=== PATIENT | male | born 1965 | race Caucasian/White ===

== ENCOUNTER 2018-09-08 21:22 | Emergency (ER) | payer SELFPAY ==
[~2018-09-08] VITALS: Ht 175.3 cm; Wt 81.6 kg
[2018-09-08 21:47] VITALS: Ht 175.3 cm; Wt 81.6 kg
[2018-09-08 23:06] LABS: BASOPHIL % 0.4 % (0-2); PLATELET COUNT 315 x10^3mcL (130-400)
[2018-09-08 23:08] LABS: RED CELL DISTRIBUTION WIDTH 17.3 % (11.5-14.5)
[2018-09-08 23:17] LABS: CARBON DIOXIDE 34.8 mmol/L (21-32); CREATININE SERUM 1.8 mg/dL (0.7-1.3)
[2018-09-08 23:22] LABS: BILIRUBIN TOTAL 0.1 mg/dL (0.20-1.00); TOTAL PROTEIN, SERUM 4.8 g/dL (6.4-8.2)
[2018-09-09 02:39] VITALS: BP 160/103
== END 2018-09-09 02:39 | disposition short-term general hospital (02) ==
LOC: ED 21:22
PROVIDERS: Emergency Medicine
DX: S06.5X0A Traumatic subdural hemorrhage without loss of consciousness, initial encounter (principal); I11.0 Hypertensive heart disease with heart failure; I50.9 Heart failure, unspecified; E11.9 Type 2 diabetes mellitus without complications; W01.0XXA Fall on same level from slipping, tripping and stumbling without subsequent striking against object, initial encounter; Y93.89 Activity, other specified; Y92.89 Other specified places as the place of occurrence of the external cause; Y99.8 Other external cause status
CPT/HCPCS: 83880; J1885; J1940; J2150; J2270; J2405; J2765; J3490; Q0092

== ENCOUNTER 2018-11-25 20:49 | Emergency (ER) | payer SELFPAY ==
[~2018-11-25] VITALS: Ht 167.6 cm; Wt 90.7 kg
[2018-11-25 20:52] VITALS: Ht 167.6 cm; Wt 90.7 kg
[2018-11-25 21:59] LABS: CALCIUM 7.6 mg/dL (8.5-10.1); CARBON DIOXIDE 30.6 mmol/L (21-32); CREATININE SERUM 2.3 mg/dL (0.7-1.3); POTASSIUM SERUM 4.4 mmol/L (3.5-5.1)
[2018-11-25 22:03] LABS: BASOPHIL % 0.1 % (0-2); PLATELET COUNT 346 x10^3mcL (130-400)
[2018-11-25 22:04] LABS: BILIRUBIN TOTAL 0.1 mg/dL (0.20-1.00); RED CELL DISTRIBUTION WIDTH 16.9 % (11.5-14.5)
[2018-11-25 22:05] LABS: ALBUMIN 1.3 g/dL (3.4-5.0); TOTAL PROTEIN, SERUM 5.6 g/dL (6.4-8.2)
[2018-11-26 04:47] VITALS: BP 147/93
== END 2018-11-26 04:47 | disposition short-term general hospital (02) ==
LOC: ED 20:49
PROVIDERS: Emergency Medicine
DX: S06.5X0A Traumatic subdural hemorrhage without loss of consciousness, initial encounter (principal); I16.1 Hypertensive emergency; I12.9 Hypertensive chronic kidney disease with stage 1 through stage 4 chronic kidney disease, or unspecified chronic kidney disease; E11.22 Type 2 diabetes mellitus with diabetic chronic kidney disease; N18.9 Chronic kidney disease, unspecified; E78.00 Pure hypercholesterolemia, unspecified; W18.39XA Other fall on same level, initial encounter; Y93.89 Activity, other specified; Y92.89 Other specified places as the place of occurrence of the external cause; Y99.8 Other external cause status
CPT/HCPCS: 83880; J1953; J2405; J3490; Q0163

== ENCOUNTER 2018-12-10 11:26 | Inpatient (IN) | payer MEDICAID ==
[~2018-12-10] VITALS: Ht 170.2 cm; Wt 88.2 kg
--- NOTE | 2018-12-10 11:45 | NUR ---
PLACED IN H1 FOR EVAL.
--- NOTE | 2018-12-10 12:03 | NUR ---
PATIENT AAOX4 PRESENTS TO THE ED WITH ACCIDENTAL OVERDOSE OF 10 HYDROCHLOROTHIAZIDE PILLS. PT THOUGHT HE WAS TAKING A MIX OF HIS REGULAR MEDICATIONS AND ACCIDENTALLY GRABBED THE WRONG BOTTLE. PT NOT C/O ANY SYMPTOMS, NO N/V. PT STS "I FEEL PERFECT" (IN [place]). BREATHING E/U, SKIN WARM, DRY AND INTACT. PT WAS PLACED ON ALL MONITORS FOR FURTHER OBSERVATION. WILL CONTINUE TO MONITOR.
--- NOTE | 2018-12-10 12:05 | NUR ---
EKG IN PROGRESS BY TECH.
[2018-12-10 12:18] LABS: BASOPHIL % 0.4 % (0-2)
[2018-12-10 12:20] LABS: PLATELET COUNT 454 x10^3mcL (130-400); RED CELL DISTRIBUTION WIDTH 17.6 % (11.5-14.5)
[2018-12-10 12:22] LABS: CALCIUM 7.6 mg/dL (8.5-10.1); CARBON DIOXIDE 31.7 mmol/L (21-32); CHLORIDE SERUM 107 mmol/L (98-107); CREATININE SERUM 2.5 mg/dL (0.7-1.3); GFR1 29 mL/min; GLUCOSE SERUM 155 mg/dL (74-106); POTASSIUM SERUM 4.6 mmol/L (3.5-5.1); SODIUM SERUM 142 mmol/L (136-145)
[2018-12-10 12:29] LABS: ALKALINE PHOSPHATASE 110 U/L (46-116); ALT/SGPT 43 U/L (16-63); AST/SGOT 26 U/L (15-37); BILIRUBIN TOTAL 0.1 mg/dL (0.20-1.00)
[2018-12-10 12:31] LABS: ALBUMIN 1.6 g/dL (3.4-5.0); TOTAL PROTEIN, SERUM 5.6 g/dL (6.4-8.2)
--- NOTE | 2018-12-10 12:33 | NUR ---
S/W POISON CONTROLADA, TREAT SYMPTOMS-- CHEMISTRY PANEL.
--- NOTE | 2018-12-10 12:42 | NUR ---
MEDICATED PER MD ORDERS.
--- NOTE | 2018-12-10 12:59 | NUR ---
URINE SENT TO LAB--
[2018-12-10 13:17] LABS: AMPHETAMINE QUAL UR NONE DETECTED (See below)
[2018-12-10 13:19] LABS: UA SPECIFIC GRAVITY 1.015 (1.005-1.035); microscopic required? YES; urine erythrocyte 1+ (NEGATIVE)
--- NOTE | 2018-12-10 13:40 | NUR ---
BP RECHECKED PRIOR TO ADMINISTRATION OF LABETATOL. BP ELEVATED AT 186/111 DR LILLIE HURT.
--- NOTE | 2018-12-10 13:48 | NUR ---
WARM BLANKETS PROVIDED TO THE PATIENT FOR COMFORT.
--- NOTE | 2018-12-10 15:02 | NUR ---
REPORT GIVEN TO FRANTZ
--- NOTE | 2018-12-10 15:15 | NUR ---
PT ADMITTED AT THIS TIME FROM OUR ED FOR OVERDOSE ON HYDROCHLOROTHIAZIDE AND HYPERTENSIVE URGENCY. ADMISSION VS: HR 80, BP 181/95 (146), T 97.7, 02 95% ON RA, RR 18. PT DENIES PAIN, IS ABLE TO FOLLOW COMMANDS AND MAKE NEEDS KNOWN. PERRL 3MM, BRISK. VITAL SIGNS STABLE. LUNG SOUNDS CTA, BREATHING E/U ON RA. NO SOB. PT HAS 20 G LAC IV, SALINE LOCKED, NO MAINTENANCE FLUID RUNNING. WILL CARRY OUT ORDERS FOR THIS SHIFT AND CONTINUE MONITORING PT.
--- NOTE | 2018-12-10 16:15 | NUR ---
PT GIVEN PRN 10 MG IVP HYDRALAZINE FOR BP 181/99 (139). WILL CONTINUE TO MONITOR.
--- NOTE | 2018-12-10 16:16 | NUR ---
PT USED URINAL, 375 ML URINE AT THIS TIME. YELLOW, CLEAR.
--- NOTE | 2018-12-10 16:30 | NUR ---
PUBLIC HEALTH ADMINISTRATOR FROM [facility] CALLED AND ASKED FOR UPDATES ON PATIENT; UPDATES GIVEN, QUESTIONS ADDRESSED. SHE STATED THAT THE PT DOESN'T SEEM TO BE MANIFESTING SIGNS OR SYMPTOMS OF HCTZ OVERDOSE SO THEY WOULD BE CLOSING THE CASE ON THEIR END. SHE SAID IF WE HAVE FURTHER QUESTIONS TO GIVE THEM A CALL.
[2018-12-10 17:20] VITALS: BP 181/95
--- NOTE | 2018-12-10 19:00 | NUR ---
RECEIVED REPORT FROM FRANTZ KRAMER. ASSUMING ALL CARE
[2018-12-10 19:10] VITALS: BP 179/89
--- NOTE | 2018-12-10 19:12 | NUR ---
RECEIVED PT LAYING IN BED. PT IS A/OX4. SPEECH IS CLEAR. ABLE TO MAKE NEEDS KNOWN. DENIES CRAWFORD. GCS=15. BREATHING IS E/U ON 2 LPM VIA NC. LUNGS SOUND CLEAR TO BUL AND DIMIN TO BLL. SYMMETRICAL CHEST EXPANSION NOTED. S1/S2 HEART SOUNDS AUSCULTATED. CHEST WALL EQUAL AND SYMMETRICAL. DENIES ANY CP/DIZZINESS. HR 78.PALPABLE PULSES X4 EXTREMITIES. SKIN IS WARM AND DRY. +1 PITTING EDEMA NOTE TO BLE. CAP REFILL < 3 SECS. LAC IV INTACT/SECURED, SALINE LOCKED. SCD IN PLACE. ABD IS SOFT, ROUND, NONTENDER TO PALPATION. BOWEL SOUNDS ACTIVE X4 QUADRANTS. NO BM NOTED. PT VOIDS FREEY VIA URINAL. NO SCROTAL EDEMA/PENILE DISCHARGE NOTED. SKIN IS INTACT. DARK DISCOLORATION NOTED TO BLE. PT IS ABLE TO REPOSITION SELF INDEPENDENTLY. PT IS CALM AND COOPERATIVE. BED IN LOW POSITION. CALL LIGHT IN REACH. WILL CONT TO MONITOR
--- NOTE | 2018-12-10 20:05 | NUR ---
PT'S O2 SATURATION DECREASED TO 76%. NC INCREASED TO 4 LPM WITH O2 SAT IMPROVING TO 95%. WILL CONT TO MONITOR.
--- NOTE | 2018-12-10 20:35 | NUR ---
PT'S O2 SATURATION DECREASED TO 70%. SIMPLE MASK PLACED AT 6 LPM. O2 SAT IMPROVED TO 96%. WILL CONT TO MONITOR
[2018-12-10 23:10] VITALS: BP 154/82
[2018-12-11] VITALS (8 sets, daily range): BP systolic 152–194; BP diastolic 82–105; Ht 170.2 cm; Wt 88.2 kg
--- NOTE | 2018-12-11 02:28 | NUR ---
NIBP 188/95. HYDRALAZINE ADMINISTERED IVP PER EMAR. WILL CONT TO MONITOR
--- NOTE | 2018-12-11 04:47 | NUR ---
WEBSPHERE CONSULTANT AT BEDSIDE FOR AM LAB DRAW
[2018-12-11 05:10] LABS: BASOPHIL % 0.7 % (0-2); PLATELET COUNT 391 x10^3mcL (130-400)
[2018-12-11 05:15] LABS: RED CELL DISTRIBUTION WIDTH 17.7 % (11.5-14.5)
[2018-12-11 05:23] LABS: CALCIUM 7.4 mg/dL (8.5-10.1); CARBON DIOXIDE 32.6 mmol/L (21-32); CREATININE SERUM 2.4 mg/dL (0.7-1.3); POTASSIUM SERUM 4.8 mmol/L (3.5-5.1)
--- NOTE | 2018-12-11 07:00 | NUR ---
RECIEVED REPORT FROM JEFFERY KRAMER. UPDATES GIVEN, ALL QUESTIONS ANSWERED AND ADDRESSED.
--- NOTE | 2018-12-11 10:02 | NUR ---
BP 177/92. HYDRALAZINE 10 MG IVP GIVEN PRN SBP >160.
--- NOTE | 2018-12-11 14:13 | NUR ---
Discount pharmacy card and list to low cost medical clinics given to patient by Darío.
--- NOTE | 2018-12-11 14:20 | NUR ---
REPORT GIVEN TO NAIF KRAMER. PT WILL BE GOING TO [facility]A VIA WHEELCHAIR. ON TELE MONITOR # 21. PT'S BELONGINGS GOING WITH PT.
--- NOTE | 2018-12-11 15:00 | NUR ---
RECEIVED PATEINT FROM ICU VIA WHEELCHAIR. PATIENT A/A/OX4; TAIWANESE SPEAKING. V/S = 99.3-83-18-152/80, MAP = 104; O2 SAT 92% ON RA. NO SOB. O2 SAT IMPORVED ON O2 2L VIA N/C. TELE#21; SR; HR =84. DENIED CHEST PAIN. IVHL'D TO LAC WITH INFILTRATION. LUE EDEMA 3+. CALL LIGHT IN REACH.
--- NOTE | 2018-12-11 15:15 | NUR ---
REMOVED IVHL FROM LAC. NEW IV INSERTION WITH 22G NEEDLE TO RFA. GOOD BLOOD RETURN. ARISTIDES.
--- NOTE | 2018-12-11 17:55 | NUR ---
TELEPHONE ORDERS FROM DR ROWLAND RECEIVED. PATIENT VOID 400CC OF YELLOWISH URINE. URINE SPECIMEN COLLECTED AND SENT TO LAB.
--- NOTE | 2018-12-11 19:10 | NUR ---
REPORT RECEIVED FROM DAY SHIFT RN. PATIENT WAS SEEN RESTING COMFORTABLY IN BED. NO DISTRESS NOTED. BREATHING EVEN AND UNLABORED ON 2L NC. NO SOB OR RESP DISTRESS NOTED. DENIES CHEST PAIN/PRESSURE. NO C/O PAIN. IV TO THE RFA. SALINE LOCK. PATENT AND INTACT. NO REDNESS OR SWELLING NOTED. HIGH BP. DAY SHIFT RN WILL GIVE PRN HYDRALAZINE. CRUTCHES AT BEDSIDE. COMFORT AND SAFETY MEASURES IN PLACE. BED IS LOCKED AND IN THE LOWEST. POSITION. SIDE RAILS UP X2. CALL LIGHT IS WITHIN REACH. WILL CONTINUE TO [facility].
--- NOTE | 2018-12-11 19:25 | NUR ---
U/S KIDNEYS DONE. B/P = 194/105; P = 78; DENIED PAIN. HYDRALAZINE 10MG IVP GIVEN. ENDORSED CARE TO NOC NURSE.
--- NOTE | 2018-12-11 23:36 | NUR ---
PATIENT REFUSED SCHEDULED APRESOLINE. GAVE PATIENT MED AND PATIENT SPAT IT OUT AND SAID "NO, I DON'T WANT IT. GET OUT OF HERE". EDUCATED PATIENT ON THE IMPORTANCE OF TAKING BP MED AND THE RISK IF REFUSING. PATIENT STILL REFUSED AND KEPT SAYING "GET OUT OF HERE". DR DUBOSE AWARE. SAFETY MEASURES IN PLACE. CALL LIGHT IS WITHIN REACH. WILL CONTINUE TO MONITOR.
--- NOTE | 2018-12-12 02:15 | NUR ---
RESTING IN BED WITH EYES CLOSED. NO DISTRESS NOTED. NO S/S OF PAIN NOTED. BREATHING EVEN AND UNLABORED ON ROOM AIR. NO SOB OR RESP DISTRESS NOTED. SAFETY MEASURES IN PLACE. CALL LIGHT IS WITHIN REACH. WILL CONTINUE TO MONITOR.
--- NOTE | 2018-12-12 05:30 | NUR ---
REFUSED PO APRESOLINE. HIGH BP 190/86(117), HR 80. ADMINISTERED PRN HYDALAZINE IVP. CASINO FLOORPERSON AWARE/NOTIFIED. NO DISTRESS NOTED. SAFETY MEASURES IN PLACE. CALL LIGHT IS WITHIN REACH. WILL CONTINUE TO MONITOR.
[2018-12-12 05:44] VITALS: BP 180/86
--- NOTE | 2018-12-12 06:02 | NUR ---
RESTED IN LONG INTERVALS THROUHGOUT THE NIGHT. NO ACUTE CHANGES NOTED. AGITATED AND REFUSED APRESOLINE PO. WANTED TO BE LEFT ALONE. BREATHING EVEN AND UNLABORED ON 2L NC. NO SOB NOTED. NO DISTRESS NOTED. IV TO RFA INFUSING ALBUMIN WELL. PATENT AND INTACT. NO REDNESS OR SWELLING NOTED. DENIES CHEST PAIN/PRESSURE. NO C/O PAIN THROUGHOUT THE NIGHT. ALL NEEDS AND CONCERNS ADDRESSED. SAFETY MEASURES IN PLACE. CALL LIGHT IS WITHIN REACH. WILL ENDORSE CARE TO DAY SHIFT RN.
--- NOTE | 2018-12-12 06:46 | NUR ---
BP STILL HIGH AFTER PRN HYDRALAZINE IVP 181/89 (123), HR 82. PATIENT AGREED TO TAKE SCHEDULED APRESOLINE HE REFUSED EARLIER. ADMINISTERED PO APRESOLINE PRESCRIBED. NO DISTRESS NOTED. SAFETY MEASURES IN PLACE. WILL ENDORSE CARE TO DAY SHIFT RN
--- NOTE | 2018-12-12 08:00 | NUR ---
SHIFT ASSESSMENT DONE. PATIENT A/A/OX4; CLEAR CROATIAN SPEAKING. DENIED DIZZINESS AND HEADACHE. B/P = 187/94; TELE#21; SR; HR = 87. DENIED CHEST PAIN. NO SOB. BREATHING SOUND DIMINISHED SARA BASES. SOME FINE CRACKLES TO RT BASE. O2 SAT 95% ON 2L VIA N/C. TOLERATED CARDIAC/CCHO DIET BREAKFAST. NO N/V. IVHL'D TO RFA PATENT WITH NS FLUSH. TRACE GENERAL EDEMA. EDEMA TO LUE SUBSIDING. SCD TO BLE. SKIN INTACT, SKIN DARK BRWN DISCOLORATION TO BLE. PATIENT WAS USING CRUTCHES AT HOME, CRUTCHES AT BED SIDE NOW. CALL LIGHT IN REACH.
[2018-12-12 09:06] VITALS: BP 187/94
[2018-12-12 12:33] VITALS: BP 195/98
--- NOTE | 2018-12-12 12:40 | NUR ---
C/O CONSTIPATION, NO BM X 3 DAYS. DULCOLAX 5MG PO GIVEN. PLUNE JUICE 240CC ORDERED.
[2018-12-12 12:47] LABS: CALCIUM 8.2 mg/dL (8.5-10.1); CARBON DIOXIDE 29.8 mmol/L (21-32); CREATININE SERUM 2.3 mg/dL (0.7-1.3)
--- NOTE | 2018-12-12 12:49 | NUR ---
B/P = 195/98; P =87; MONA BLANTON CALLED AND MESSAGE LEFT. HYDRALAZINE 10MG IVP GIVEN. PATIENT DENIED ANY DISCOMFORTABLE. HAVING LUNCH THIS TIME.
--- NOTE | 2018-12-12 14:15 | NUR ---
DR. ROWLAND SAW PATIENT. NEW ORDER OF LASIX 20MG IVP GIVEN WITH ALBUMIN #3 DOSE. CONTINUE MONITOR.
[2018-12-12 16:41] VITALS: BP 165/70
[2018-12-12 17:29] LABS: CREATININE UR 30.6 mg/dL
--- NOTE | 2018-12-12 18:44 | NUR ---
B/P = 165/70 AFTER LASIX 20MG IVP GIVEN. PATIENT HAD VOID 1050 CC OF URINE. URINE SPECIMEN COLLECTED AND SENT TO LAB. PATIENT NO RESP DISTRESS NOW. TOLERATED DINNER. NO BM THIS SHIFT. DULCOLAX AND PLUNE JUICE GIVEN. ENDORSED CARE TO [facility] NURSE.
[2018-12-12] MEDS ORDERED: METOLAZONE5 M1 PO (19:18)
[2018-12-12] MEDS ORDERED: ZESTRIL40 MG PO (19:19)
[2018-12-12] MEDS ORDERED: NOR10 PO (19:20)
[2018-12-12] MEDS ORDERED: HYDRALAZINE HCL25 MG PO (19:21)
[2018-12-12] MEDS ORDERED: LASIX40 MG PO (19:22)
[2018-12-12] MEDS ORDERED: Z5 PO (19:24)
--- NOTE | 2018-12-12 19:25 | NUR ---
RECEIVED PT IN BED AWAKE, ALERT,ORIENTED X4. LUNG SOUNDS W/ CRACKLES ON THE RLL. NO SOB NOTED. ON O2 AT 2L VIA N/C. HE HAS NO C/O PAIN AT THIS TIME. W/ +1 SWELLING TO LUE. SWELLING NOTED ON BODY AND BLE. W/ HL TO RTFA. CALL LIGHT W/IN REACH.
[2018-12-12 20:33] VITALS: BP 169/88
--- NOTE | 2018-12-12 23:10 | NUR ---
RECEIVED REPORT FROM MALENA KRAMER. WILL RESUME CARE.
--- NOTE | 2018-12-12 23:15 | NUR ---
RECEIVED PT AAOX4. SPEECH CLEAR. PT ABLE TO FOLLOW COMMANDS AND MAKE NEEDS KNOWN. BREATHING E/U. NO SOB OR RESPIRATORY DISTRESS NOTED. LUNG SOUNDS DIMINISHED TO BASES. ON RA. S1S2 AUSCULTATED WITH NO MURMURS NOTED. PT STATES NO CHEST PAIN AT THIS TIME. PULSES PALPABLE. TRACE EDEMA NOTED TO BLE AND LUE. ABDOMEN SOFT, NONTENDER. BS ACTIVE X 4. NO N/V. SKIN INTACT. RFA 22G IV SITE WNL, DRESSING CDI. BED IN LOW POSITION. CALL LIGHT WITHIN REACH. WILL CONTINUE TO MONITOR.
[2018-12-13] VITALS (7 sets, daily range): BP systolic 134–195; BP diastolic 70–100
--- NOTE | 2018-12-13 02:03 | NUR ---
PT SLEEPING IN BED AT THIS TIME. NAD NOTED. BREATHING E/U.
--- NOTE | 2018-12-13 07:20 | NUR ---
RECEIVED PT FROM MANAGER OF CHANGE. PT AWAKE, ALERT. A/OX4. PT ON TELE 21, DENIES CHEST PAIN AT THIS TIME. PT ON 2LNC WITH NO RESP DISTRESS AT THIS TIME. PT WITH DIMINISHED LUNG SOUNDS. IV ACCESS RFA C/D/I SALINE LOCKED. PT REPORTS LAST BM WAS 12/09. PT HAS DUCOLAX PRN. PT VOIDS FREELY INTO URINAL. URINE CLEAR AND YELLOW. PT HAS GENERALIZED WEAKNESS, AMBULATORY WITH AN UNSTEADY GAIT. PT USES CRUTCHES AT HOME. PERIPHERAL PULSES PALPABLE, EDEMA NOTED TO BLE AND LEFT ARM. SAFETY MEASURES IN PLACE, BED LOW AND LOCKED. CALL LIGHT WITHIN REACH.
--- NOTE | 2018-12-13 08:28 | NUR ---
PT BP 195/100 (131), DUE DAILY BP MEDS ADMINISTERED ORDERED. WILL MONITOR.
[2018-12-13 09:45] LABS: CALCIUM 7.9 mg/dL (8.5-10.1); CREATININE SERUM 2.4 mg/dL (0.7-1.3); POTASSIUM SERUM 4.9 mmol/L (3.5-5.1)
--- NOTE | 2018-12-13 09:47 | NUR ---
BP RE CHECK 185/94 (109) HR 72.
--- NOTE | 2018-12-13 11:06 | NUR ---
BP RECHECK 174/100, HR 74.
--- NOTE | 2018-12-13 11:12 | NUR ---
HYDRALAZINE 10MG IVP ADMINISTERED ORDERED PRN. WILL MONITOR.
--- NOTE | 2018-12-13 11:33 | NUR ---
Initial Nutrition Assessment: 220T/A YUAN BAE IA HR Dx: Hypertensive urgency PMHx: HTN, HLD, DM2 PSHx: none per patient Labs: BG 117H, BUN 56H, CREAT 2.3H, ALB 1.6L, HGB 7.5L Meds: D 50%, Dulcolax, Humulin, Lasix, Pepcid, Rocephin, zofran Diet: Cardiac PO intake since admission: (12/13) breakfast 100%, (12/12) 100% all meals Ht: 170.18 cm (67") Wt: 93.8 kg (206#) BMI: 32.4 kg/m2 Bed scale: 206# IBW: 148# (67 kg) %IBW: 139 UBW: 200# Age: 53/M Food Allergies: NKFA Skin: intact Italo: 20 Edema: +3LUE, trace RUE, BLE GI: Last BM: 12/09 Trigger: admitted w/ risk diagnosis Pt is a 53-year old male who was seen and examined in the ER. According to patient he believes he accidentally overdosed on his routine medications. RD Note (12/13): Patient was alert and oriented and said that he ate 100% breakfast this morning and does not have any N/V. Patient was complaining of constipation and that his last BM was on 12/09. Per WILLIAMS Maldonado, pt was given Dulcolax and prune juice per the report that she received. Problem with: N/V/D/C: constipation Problems with: Chewing: Swallowing: none Current appetite: good Recent wt change: none (some increase d/t edema) %wt change: n/a Vitamin/Supplement use: none Special diet at home: Regular Physical activity: sedentary Nutrition education given: consumption of high fiber foods. Patient did not have any diet/nutrition related questions. Food-drug interactions: Lasix- increased excretion of K, Mg Education given: no Estimated Nutritional Needs Based on adjusted body weight (74 kg) Energy: 7989-5119 kcal/day (25-30 kcal/kg for) Protein: 74-89 g/day (1.0-1.2 g/kg to preserve LBM) Fluid: 9120-7265 mL/day (1 mL/kcal) Nutrition Diagnosis: 1. Altered GI function related to constipation as evidenced by last BM: 12/09/18 Intervention 1. Recommend continuing regular diet. 2. Encouraged consumption of high fiber foods. Monitor/Evaluate Goal: PO intake at least 75% of estimated needs Monitor: PO intake, Labs, GI function F/U in 7 days as low risk 12/20
--- NOTE | 2018-12-13 11:33 | NUR ---
1. Recommend continuing regular diet. 2. Encouraged consumption of high fiber foods.
--- NOTE | 2018-12-13 11:47 | NUR ---
BP RECHECK 188/91 (123) HR 77. BREAD JOCKEY AT BEDSIDE AWARE OF PATIENTS BLOOD PRESSURE, NEW ORDERS GIVEN.
--- NOTE | 2018-12-13 11:53 | NUR ---
NIFEDIPINE ADMINISTERED AT THIS TIME ORDERED. PT WALKED WITH PHYSICAL THERAPY 100 FEET WITH WALKER. WILL MONITOR BP.
--- NOTE | 2018-12-13 14:52 | NUR ---
PT BP 175/90 (115), HR 73 AFTER ADMINISTRATION OF SCHEDULED HYDRALAZINE PO 75MG. WILL CONTINUE TO MONITOR. PT ASLEEP WITH NO ACUTE DISTRESS OR DISCOMFORT NOTED.
--- NOTE | 2018-12-13 17:08 | NUR ---
PT BP 168/82 HYDRALAZINE 20MG ADMINISTERED IVP PRN ORDERED. PT REQUESTING PRUNE JUICE TO HELP HAVE A BM. PT DOES NOT WANT DUCOLAX AT THIS TIME. WILL MONITOR.
--- NOTE | 2018-12-13 18:10 | NUR ---
PT BLOOD PRESSURE 134/70 (84) AFTER ADMINISTRATION OF HYDRALAZINE 20MG IVP PRN. PT STABLE AT THIS TIME. ALL NEED MET THROUGHOUT SHIFT. WILL CONTINUE TO MONITOR AND ENDORSE CARE TO RADIOGRAPHER CARDIAC CATHETERIZATION. SAFETY MEASURES MAINTAINED.
--- NOTE | 2018-12-13 19:10 | NUR ---
PT SLEEPING, BUT EASILY AROUSABLE. PT AAOX4. WELSH SPEAKING, BUT UNDERSTANDS SAMMARINESE AT TIMES. PT DENIES ANY HEADACHE OR DIZZINESS AT THIS TIME. PT IS ON TELE #21 WITH NSR. NO S/S OF CHEST PAIN OR DISCOMFORT AT THIS TIME. PT HAS EDEMA IN LUE WELL TRACE EDEMA BLE. PT HAS FINE CRACKLES UPON AUSCULTATION IN RIGHT LOBES WELL DIMINISHED BREATH SOUNDS. PT IS ON 2L O2 NASAL CANNULA. PT VOIDS FREELY USING URINAL. PT HAS GENERALIZED WEAKNESS. SKIN IS INTACT AND WNL. CALL LIGHT WITHIN REACH. BED IN LOWEST POSITION. WILL CONTINUE TO MONITOR.
--- NOTE | 2018-12-13 23:00 | NUR ---
PT C/O SOB. ELEVATED HOB TOLERATED TO HELP FACILITATE BETTER BREATHING. PT ALSO ON NASAL CANNULA 2L O2. WILL CONTINUE TO MONITOR.
[2018-12-14 05:49] VITALS: BP 147/73
--- NOTE | 2018-12-14 06:23 | NUR ---
PT COMPLIED WITH NURSING CARE THROUGHOUT SHIFT WITH NO ACUTE EVENTS OVERNIGHT. COMFORT AND SAFETY MEASURES MAINTAINED. ALL NEEDS AND CONCERNS ADDRESSED. PT SLEPT MOST OF THE NIGHT. IV SITE ON RFA AND WNL. IV IS SALINE LOCKED. WILL ENDORSE TO DAY SHIFT NURSE. DENIES ANY PAIN OR DISCOMFORT AT THIS TIME. WILL CONTINUE TO MONITOR.
[2018-12-14 06:51] LABS: BASOPHIL % 0.4 % (0-2); PLATELET COUNT 365 x10^3mcL (130-400)
[2018-12-14 06:57] LABS: RED CELL DISTRIBUTION WIDTH 16.6 % (11.5-14.5)
--- NOTE | 2018-12-14 07:20 | NUR ---
ENDORSED CARE TO WILLIAMS MACIEL. ALL QUESTIONS AND CONCERNS ADDRESSED.
[2018-12-14 07:38] LABS: CALCIUM 7.6 mg/dL (8.5-10.1); CARBON DIOXIDE 30.9 mmol/L (21-32); CREATININE SERUM 2.6 mg/dL (0.7-1.3); POTASSIUM SERUM 4.7 mmol/L (3.5-5.1)
--- NOTE | 2018-12-14 07:52 | NUR ---
A+OX4, NO RESPRIATORY DISTRESS NOTED, TELE 21, PULSES MODERATE AND EQUAL SARA, TRACE EDEMA BLE, R FINE CRACKLES, DIMINISHED LUNG SOUNDS SARA, 2L NC, BOWEL SOUNDS ACTIVE, VOIDING FREELY, GENERALIZED WEAKNESS, USES CRUTCHES AT BEDSIDE, UNSTEADY GAIT, SKIN INTACT, IV IN RFA SALINE LOCKED, SITE WNL.
[2018-12-14 09:26] VITALS: BP 158/82
--- NOTE | 2018-12-14 09:57 | NUR ---
PT RESTING IN BED, NO RESPIRATORY DISTRESS NOTED, DENIES PAIN, CALL LIGHT WIHTIN REACH.
--- NOTE | 2018-12-14 12:12 | NUR ---
PT RESTING IN BED, NO RESPRIATORY DISTRESS NOTED, DENIES PAIN, CALL LIGHT WITHIN REACH.
[2018-12-14 14:08] VITALS: BP 180/94
--- NOTE | 2018-12-14 14:21 | NUR ---
PT GIVEN HYDRALAZINE IVP FOR BP 180/94 MAP 133. WILL RECHECK BP. NO RESPIRATORY DISTRESS NOTED, FAMILY AT BEDSIDE, CALL LIGHT WITHIN REACH.
[2018-12-14 16:13] VITALS: BP 165/83
--- NOTE | 2018-12-14 16:35 | NUR ---
PT RESTING IN BED, NO RESPIRATORY DISTRESS NOTED, DENIES PAIN, CALL LIGHT WITHIN REACH.
--- NOTE | 2018-12-14 18:40 | NUR ---
PT RESTING IN BED, NO RESPIRATORY DISTRESS NOTED, DENIES PAIN, CALL LIGHT WITHIN REACH.
--- NOTE | 2018-12-14 19:38 | NUR ---
ENDORSED CARE TO KAHLIL KRAMER.
--- NOTE | 2018-12-14 19:45 | NUR ---
RECEVIED RPT FROM DAY SHIFT NURSE, RAHEEM KRAMER. PT IS A/O X4. [place] SPEAKING. DENIES CRAWFORD. ON TELE #21 READING NSR WITH ELEVATED T WAVES. VS ARE FOLLOWED: BP 156/93, HR 76, RR 18, TEMP 98.5, SAO2 98. DENIES CP. PULSES ARE PALPABLE ON ALL 4 EXTREMITIES. LUE 1+ EDEMA, BLE TRACE EDEMA. LUNG SOUNDS ARE DIMINISHED SARA ON 2L NC. DENIES SOB. ABD IS ROUND AND SLIGHTLY DISTENDED. BS ACTIVE IN ALL 4Q. HAS NOT HAD BM SINCE 12/09. URINAL AT BEDSIDE DRAINING CLEAR YELLOW URINE. PT ON STRICT I&OS. PT HAS GENERALIZED WEAKNESS, UNSTEADY GAIT. SKIN INTACT. DENIES PAIN AT THIS TIME. RFA SALINE LOCK. DRY, INTACT, AND PATENT. WILL CONTINUE TO MONITOR. BED IN LOWEST POSITION. CALL LIGHT WITHIN REACH.
[2018-12-14 20:15] VITALS: BP 156/93
--- NOTE | 2018-12-14 21:38 | NUR ---
ROUTINE MEDICATIONS WERE GIVEN AND TOLERATED WELL. DENIES ANY PAIN AT THIS TIME. BREATHING IS EVEN AND UNLABORED ON 2L NC. NO SIGNS OF SOB. BED IN LOWEST POSITION. URINAL WITH REACH. CALL LIGHT WITHIN REACH. WILL CONTINUE TO MONITOR.
--- NOTE | 2018-12-14 23:00 | NUR ---
PT IS RESTING WITH EYES CLOSED BUT EASILY AROUSABLE WHEN SPOKEN TO. BREATHING IS EVEN AND UNLABORED. NO SIGNS OF RESP DISTRESS. CALL LIGHT WITHIN REACH. BED IN LOWEST POSITION. WILL CONTINUE TO MONITOR.
[2018-12-15] VITALS (9 sets, daily range): BP systolic 131–193; BP diastolic 80–96
--- NOTE | 2018-12-15 01:04 | NUR ---
PT IS RESTING WITH EYES CLOSED. BREATHING IS EVEN AND UNLABORED. NO SIGNS OF RESP. DISTRESS. WILL CONTINUE TO MONITOR.
--- NOTE | 2018-12-15 03:21 | NUR ---
PT IS ASLEEP. BREATHING IS EVEN AND UNLABORED ON 2L NC. NO SIGNS OF RESP DISTRESS. BED IN LOWEST POSITION. WILL CONTINUE TO MONITOR.
--- NOTE | 2018-12-15 05:35 | NUR ---
BP IS 178/91. ADMINISTERED ROUTINE MED APRESOLINE 75MG. WILL REASSESS BP.
[2018-12-15 06:34] LABS: BASOPHIL % 0.5 % (0-2); PLATELET COUNT 382 x10^3mcL (130-400)
--- NOTE | 2018-12-15 06:50 | NUR ---
RECHECKED PT BP AFTER ROUTINE MED APRESOLINE 75MG. BP READS 152/84 WITH MAP OF 106.
[2018-12-15 06:53] LABS: RED CELL DISTRIBUTION WIDTH 17.1 % (11.5-14.5)
--- NOTE | 2018-12-15 06:53 | NUR ---
PT SLEPT THROUGHOUT THE NIGHT. PT COMPLIED WITH NURSING CARE THROUGHOUT SHIFT WITH NO ACUTE EVENTS OVERNIGHT. COMFORT AND SAFETY MEASURES MAINTAINED. ALL NEEDS ASSESSED AND ATTENDED TO. WILL CONTINUE TO MONITOR AND ENDORSE CARE TO DAY SHIFT NURSE.
[2018-12-15 07:00] LABS: CALCIUM 7.5 mg/dL (8.5-10.1); CARBON DIOXIDE 30.1 mmol/L (21-32); CREATININE SERUM 2.6 mg/dL (0.7-1.3); POTASSIUM SERUM 4.8 mmol/L (3.5-5.1)
--- NOTE | 2018-12-15 07:22 | NUR ---
ENDORSED CARE TO DAY SHIFT NURSE, RAHEEM KRAMER.
--- NOTE | 2018-12-15 08:02 | NUR ---
A+OX4, NO RESPRIATORY DISTRESS NOTED, TELE 21, PULSES MODERATE AND EQUAL SARA, TRACE EDEMA BLE, BLE DISCOLORATIONS, DIMINISHED LUNG SOUNDS, 2L NC, BOWEL SOUNDS ACTIVE, VOIDING FREELY, GENERALIZED WEAKNESS, CRUTCHES AT BEDSIDE, UNSTEADY GAIT, SKIN INTACT, IV IN RFA SALINE LOCKED, SITE WNL.
--- NOTE | 2018-12-15 10:25 | NUR ---
PT RESTING IN BED, NO RESPIRATORY DISTRESS NOTED, DENIES PAIN, CALL LIGHT WITHIN REACH.
--- NOTE | 2018-12-15 12:46 | NUR ---
PT RESTING IN BED, NO RESPIRATORY DISTRESS NOTED, DENIES PAIN, CALL LIGHT WITHIN REACH.
--- NOTE | 2018-12-15 17:17 | NUR ---
LABETALOL IVP 10 MG GIVEN FOR BP 181/92. BEFORE AND AFTER STRIPS PRINTED. NO RESPIRATORY DISTRESS NOTED, DENIES CHEST PAIN, CALL LIGHT WITHIN REACH.
--- NOTE | 2018-12-15 19:03 | NUR ---
BP 193/[address] LOVE. PER DR DUBOSE, PT TO BE GIVEN COZAAR PO AND COREG PO. PT DENIES CHEST PAIN AND NO RESPIRATORY DISTRESS NOTED.
--- NOTE | 2018-12-15 19:15 | NUR ---
ENDORSED CARE TO KAHLIL KRAMER.
--- NOTE | 2018-12-15 19:25 | NUR ---
RECEIVED PT AWAKE ALERT AN DVERBALLY RESPONSIVE IN [place].BREATHING EASY AND NON-LABORED.O2 @ 2L/MIN VIA N/C.VERBALIZES THRU [place] SPEAKING NURSE THAT HE FEELS BETTER WHEN REPOSITIONED AND HIGH IN BED LAST NIGHT AND WAS ABLE TO SLEEP GOOD.REPOSITIONED AT THIS TIME.HOB KEPT ELEVATED.LATEST BP CHECKED AFTER LABETALOL AND PO MEDS GIVEN BY AM NURSE @ L ARM 179/89 MMHG .R ARM 179/92 MMHG.DENIES HEADACHE OR DIZZINESS.DENIES CHESTPAIN.WILL CONTINUE TO MONITOR.
--- NOTE | 2018-12-15 23:23 | NUR ---
BP RECHECKED @ 150/80 MMHG,HR 88.PT AWAKE AT THIS TIME.DENIES CHESTPAIN.IN NO DISTRESS.
[2018-12-16] VITALS (7 sets, daily range): BP systolic 122–201; BP diastolic 69–98
--- NOTE | 2018-12-16 04:40 | NUR ---
PT SLEPT WELL ALL NIGHT.BREATHING EASY AND NON-LABORED.DENIES ANY PAIN .USES URINALS.ALL NEEDS MET.WILL CONTINUE TO MONITOR.
--- NOTE | 2018-12-16 05:59 | NUR ---
LATEST BP THIS AM @ 122/69 MMHG,HR 63.WILL ENDORSE TO AM NURSE.
[2018-12-16 06:53] LABS: BASOPHIL % 0.6 % (0-2); PLATELET COUNT 325 x10^3mcL (130-400)
[2018-12-16 07:03] LABS: RED CELL DISTRIBUTION WIDTH 17.2 % (11.5-14.5)
[2018-12-16 07:15] LABS: CALCIUM 7.6 mg/dL (8.5-10.1); CARBON DIOXIDE 31.9 mmol/L (21-32); CREATININE SERUM 2.5 mg/dL (0.7-1.3); POTASSIUM SERUM 5.1 mmol/L (3.5-5.1)
--- NOTE | 2018-12-16 08:00 | NUR ---
RECEIVED PATIENT DROWSY, AROUSABLE. ORIENTED X3; [place] SPEAKING. PUFFY FACE AND GENERAL EDEMA (+). LUE EDEMA 2+. RR=22. BREATHING SOUND DIMINISHED TO R SIDE W/ FINE CRACKLES. O2 SAT 84% ON 3L VIA NC. IMPROVED TO 92% ON 5L/MIN VIA N/C. RT CALLED AND CAME TO SEE PATIENT. PATIENT'S ABD ROUND/SOFT. STATED HAD BM YESTERDAY. NO N/V. IVHL'D TO RFA W/ 22G NEEDLE. SCD BLE. DENOED PAIN. GENERAL WEAKNESS. VOID VIA URINAL. B/P = 154/93. CALL LIGHT IN REACH.
--- NOTE | 2018-12-16 09:40 | NUR ---
O2 SAT 89% ON 5L VIA N/C. RT PAGED. CHANGED O2 5L/MIN VIA OXYMIZER.
--- NOTE | 2018-12-16 12:20 | NUR ---
B/P = 192/96; P = 72; LABETALOL 10MG IVP GIVEN PER ORDER. CONTINUE MONITOR.
--- NOTE | 2018-12-16 13:00 | NUR ---
DR. ROWLAND SAW PATIENT. AWARE OF PATIENT'S B/P WAS 192/96. NEW ORDER WRITTEN.
--- NOTE | 2018-12-16 13:35 | NUR ---
FRANNY JOB ANALYSIS MANAGER AWARE OF PATIENT'S CXR WORSEN DUE TO PELURAL EFFUSION.
--- NOTE | 2018-12-16 14:45 | NUR ---
US GUID THORACENTESIS HOLD DUE TO PT/PTT IN PENDING.
--- NOTE | 2018-12-16 14:49 | NUR ---
RECEIVED ORDER FOR US GUIDED THORACENTESIS. PT/PT ORDERED AT 1330 STILL PENDING, PER LAB SPECIMEN NOT RECEIVED YET. SPOKE WITH PATIENT'S NURSE NAIF AND CHARGE NURSE VITO. THORACENTESIS WILL BE LIKELY BE DONE TOMORROW BUT IF IT BECOMES URGENTLY NECESSARY, ON-CALL RADIOLOGIST CAN BE CALLED IN DURING OFF HOURS. SPOKE WITH PATIENT ALSO, WHO DENIES SOB AND APPEARS EUPNEIC AT REST.
--- NOTE | 2018-12-16 14:54 | NUR ---
PHYSICAL THERAPY DAILY NOTES CO-SIGN All documentation done by the Trimmer Helper for 12/16/18 has been reviewed. I agree with the documentation. Reviewed/Co-Signed by: Faby Henry PT Documentation Done by: SOFIE GRAHAM PTA
--- NOTE | 2018-12-16 14:56 | NUR ---
LASIX DRIP AT 5MG/HR STARTED.
--- NOTE | 2018-12-16 15:34 | NUR ---
RECHECK B/P AFTER LABETALOL IVP. B/P = 201/98; P = 78; HYDRALAZINE 20MG IVP GIVEN. CONTINUE MONITOR.
--- NOTE | 2018-12-16 17:01 | NUR ---
B/P = 182/84; PATIENT WAS ON LASIX DRIP A 5MG/HR. CONTINUE MONITOR.
--- NOTE | 2018-12-16 17:20 | NUR ---
MONA DEL TORO MADE AWARE THAT THORACENTHESIS WAS NOT DONE D/T LABS NOT BEING DONE AND RADIOLOGY PROCEDURE TEAM COULD NOT PERFORM PAST 1530 SINCE THEY WOULD BE LEAVING BY THEN. ATTENDING NURSE AWARE.
--- NOTE | 2018-12-16 18:14 | NUR ---
TOLERATED DINNER. NO N/V. DENIED PAIN. PATIENT HAD URINE OUTPUT 850CC THIS SHIFT. NO BM NOTED. ON LASIX DRIP. NO SOB THIS TIME. O2 SAT 98% ON 5L VIA OXYMIZER. ENDORSED CARE TO [facility] NURSE.
--- NOTE | 2018-12-16 19:25 | NUR ---
RECEIVED PT IN BED AWAKE AND TALKING TO A VISITOR AT BEDSIDE. HE IS ALERT,ORIENTED X4. LUNG SOUNDS DIMINISHED ON THE RT SIDE. BREATHING IS EVEN AND NON-LABORED AT THIS TIME. ON OXIMIZER AND SATTING 98 % AT THIS TIME. BOWEL SOUNDS ACTIVE. HE HAS NO C/O PAIN AT THIS TIME. W/ IV LASIX INFUSING VIA RT WRIST. CALL LIGHT W/IN REACH.
--- NOTE | 2018-12-16 19:45 | NUR ---
INFORMED PT THAT HE CAN ONLY DRINK UP TO 200 CC WATER/LIQUID OVERNIGHT PER DOCTOR'S ORDER.
--- NOTE | 2018-12-16 21:30 | NUR ---
PT ASSISTED TO THE RESTROOM. PT W/ SOB WHEN AMBULATING . PT HAD MOD. SOFT BM. HELPED PT BACK TO BED AND KEPT COMFORTABLE.
--- NOTE | 2018-12-16 22:20 | NUR ---
PT SATTING 80-85%. PT APPEARS TO BE SLEEPING COMFORTABLY. O2 RAISED TO 8L ( OXIMIZER.
--- NOTE | 2018-12-16 22:51 | NUR ---
PT SATTING 92% AT THIS TIME.
[2018-12-17] VITALS (7 sets, daily range): BP systolic 102–174; BP diastolic 66–93
--- NOTE | 2018-12-17 01:20 | NUR ---
LISA CATH FR. 16 INSERTED ORDERED. OBTAINED 150 CC YELLOW URINE . WILL CONTINUE TO MONITOR OUTPUT.
--- NOTE | 2018-12-17 05:12 | NUR ---
PT APPEARS TO BE SLEEPING COMFORTABLY AT THIS TIME. HE IS SATTING 97% ON OXIMIZER AT 8L O2. PT WATCHED CLOSELY HE REMOVED OXIMIZER SEVERAL TIMES DROPPING O2 SATS TO 70'S-80'S DURING THE NIGHT. PT HAD BM X1. LISA CATH IN PLACE. IV LASIX INFUSING AT 5 CC/HR VIA RT WRIST. ALL NEEDS ATTENDED TO.
[2018-12-17 06:47] LABS: BASOPHIL % 0.5 % (0-2); PLATELET COUNT 289 x10^3mcL (130-400)
[2018-12-17 06:50] LABS: CALCIUM 7.7 mg/dL (8.5-10.1); CARBON DIOXIDE 30.2 mmol/L (21-32); CREATININE SERUM 2.7 mg/dL (0.7-1.3); POTASSIUM SERUM 4.7 mmol/L (3.5-5.1)
[2018-12-17 07:12] LABS: RED CELL DISTRIBUTION WIDTH 16.6 % (11.5-14.5)
--- NOTE | 2018-12-17 08:00 | NUR ---
SHIFT ASSESSMENT DONE. PATIENT DROWSING, AROUSABLE. TURKMEN SPEAKING. ABLE TO ANSWER QUESTIONS. REFUSED BREAKFAST NOW. TELE#21; SR; HR = 80. BREATHING SOUND DIMINISHED TO RT SIDE AND LLL. FIND CRACKLES TO R SIDE. O2 SAT 98% ON O2 7L/MIN VIA OXYMIZER. RR =16 WHEN PATIENT SLEEPING. RT PROTOCOL. ABD ROUND. BOWEL SOUND ACTIVE. LISA PATNET WITH YELLOWISH UOP. GENERAL EDEMA (+). LASIX DRIP 5MG/HR. IV TO RFA INTACT. DENIED PAIN. SCD SARA. CALL LIGHT IN REACH.
--- NOTE | 2018-12-17 09:32 | NUR ---
ARRIVED TO ROOM FOR US GUIDED THORACENTESIS. PATIENT BARELY ROUSABLE. BP 167/93, HEART RATE 71, RR=16 SP02=09% ON OXIMYZER. UNABLE TO OBTAIN CONSENT FROM PATIENT FOR PROCEDURE, ATTEMPTED TO REACH PATIENT'S SISTER (LISTED CONTACT) BY PHONE BUT ONLY CONNECTED WITH ANSWERING MACHINE WITH A MESSAGE IN BRAZILIAN. ALERTED PATIENT'S NURSE NAIF R/Alejandro JIMENEZ. PER DR Alejandro BOYKIN, WILL DEFER THORACENTESIS UNTIL VALID CONSENT OBTAINED. PATIENT ONLY GRUNTS/GROANS IN RESPONSE TO QUESTIONS AND THEN IMMEDIATELY FALLS ASLEEP AGAIN. EUPNEIC AT REST WITH HOB IN ESTEVEZ'S POSITION.
--- NOTE | 2018-12-17 11:00 | NUR ---
US GUIDE RT THORACENTESIS DONE, 1500 CC OF YELOOW FLUID DRAIANGE OUT. BANDAID DRSG TO RT BACK CHEST DRY/INTACT. V/S = 98.2-70-17-167/88, MAP 114; O2 SAT 95% ON 5L VIA OXYMIZER. DENIED PAIN.
--- NOTE | 2018-12-17 14:45 | NUR ---
DR. ROWLAND CAME TO SEE PATIENT. AWARE OF PATIENT'S URINE OUTPUT 700 CC COLLECTED SINCE 6AM TODAY.
--- NOTE | 2018-12-17 15:41 | NUR ---
DR. GOETZ SAW PATIENT. NEW ORDER OF TESTS OF PLEURAL FLUID WRITTEN.
[2018-12-17 16:45] LABS: APPEARANCE FLUID HAZY; SOURCE FLUID PLEURAL
[2018-12-17 16:46] LABS: COLOR FLUID PALE YELLOW
[2018-12-17 16:49] LABS: RBC FLUID 140 /cumm; WBC FLUID 192 /cumm
[2018-12-17 16:50] LABS: LYMPHOCYTE FLUID 70 %
--- NOTE | 2018-12-17 18:30 | NUR ---
UOP 900 CC VIA LISA CATH. NO BM THIS HSIFT. ON LASIX DRIP 3MG/HR. DRSG TO RT CHEST D/C/I. DENIED PAIN. NO ACUTE RESP DISTRESS. ENDORSED CARE TO NOC NURSE.
--- NOTE | 2018-12-17 19:25 | NUR ---
RECEIVED PT IN BED AWAKE, ALERT,ORIENTED X3. FAMILY AT BEDSIDE VISITING. LUNG SOUNDS DIMINISHED BILAT. PT APPEARS TO BE BREATHING BETTER THAN LAST NIGHT. NO SOB AT THIS TIME WHILE AT REST. ON OXIMIZER AT 5L O2. HE HAS NO C/O PAIN AT THIS TIME. W/ IV LASIX AT 3 CC/HR INFUSING VIA RT WRIST. CALL LIGHT W/IN REACH.
--- NOTE | 2018-12-17 21:35 | NUR ---
DR. ROWLAND CALLED TO CHECK ON PT'S URINE OUTPUT. REPORTED OUTPUT OF 200 CC SINCE START OF SHIFT. ALSO REPORTED THAT PT IS BREATHING MUCH BETTER THAN LAST NIGHT.
--- NOTE | 2018-12-17 23:14 | NUR ---
PT'S O2 SAT WENT DOWN TO 44%. CHECKED PT AND OXIMIZER ATTACHED LOOSELY. RESP THERAPIST FIXED IT AND O2 ADJUSTED TO 8L. WILL CONTINUE TO MONITOR.
--- NOTE | 2018-12-17 23:16 | NUR ---
O2 SAT NOW AT 96 %.
--- NOTE | 2018-12-18 01:20 | NUR ---
DR. ROWLAND CALLED TO CHECK ON PT'S URINE OUTPUT. NOTED W/ 200 CC IN BAG AT THIS TIME.
--- NOTE | 2018-12-18 02:00 | NUR ---
LASIX RATE INCREASED TO 4 ML/HR ORDERED.
--- NOTE | 2018-12-18 02:05 | NUR ---
RT ADJUSTED OXIMIZER TO 5L O2.
--- NOTE | 2018-12-18 05:21 | NUR ---
PT AWAKE AND RESTING QUIETLY. HE SLEPT IN LONG INTERVALS. PT BREATHING BETTER. ON OXIMIZER AT 5L O2 AND SATTING 93 % AT THIS TIME. HE HAD NO C/O PAIN. LISA CATH IN PLACE. W/ 900 CC OUTPUT NOTED . IV LASIX INFUSING AT 4 ML/HR. ALL NEEDS ATTENDED TO.
[2018-12-18 06:00] VITALS: BP 150/77
[2018-12-18 06:43] LABS: BASOPHIL % 0.7 % (0-2); PLATELET COUNT 277 x10^3mcL (130-400)
[2018-12-18 06:53] LABS: RED CELL DISTRIBUTION WIDTH 16.8 % (11.5-14.5)
[2018-12-18 07:15] LABS: CALCIUM 7.6 mg/dL (8.5-10.1); CARBON DIOXIDE 32.9 mmol/L (21-32); POTASSIUM SERUM 4.6 mmol/L (3.5-5.1)
--- NOTE | 2018-12-18 07:40 | NUR ---
RECEIVED PT FROM COTTRELL OPERATOR RN. Matt/CURTIS. TELE#21. DENIES CHEST PAIN/PRESSURE. RESPIRATIONS EQUAL AND UNLABORED ON OXIMIZER 5L. DENIES SOB. PT DENIES ANY PAIN AT THIS TIME. PT DENIES ANY N/V. LISA CATHETER SECURED TO THIGH DRAINING CLEAR YELLOW URINE. IV TO RFA PATENT AND INFUSING. NO REDNESS OR SWELLING NOTED. IV LASIX INFUSING AT 4 ML/HR. WILL CONTINUE TO MONITOR. CALL LIGHT IN REACH. BED IN LOWEST POSITION.
--- NOTE | 2018-12-18 09:20 | NUR ---
RECEIVED ORDER TO HOLD LASIX DRIP. PT SALINE LOCKED TO RFA. EMPTIED LISA CATHETER EMPTIED 400 ML OF CLEAR YELLOW URINE. PHYSICAL THERAPIST SOFIE AT BEDSIDE WORKING WITH PT.
[2018-12-18 09:22] VITALS: BP 176/89
[2018-12-18 13:17] VITALS: BP 195/99
[2018-12-18 14:03] VITALS: BP 161/79
--- NOTE | 2018-12-18 14:23 | NUR ---
PHYSICAL THERAPY DAILY NOTES CO-SIGN All documentation done by the Public Housing Manager for 12/18/18 has been reviewed. I agree with the documentation. Reviewed/Co-Signed by: Faby Henry PT Documentation Done by: SOFIE GRAHAM PTA
--- NOTE | 2018-12-18 14:39 | NUR ---
PT SITTING UP IN BED. NO ACUTE RESP DISTRESS NOTED ON OXIMIZER 5L. IV PATENT AND INFUSING ANTIBIOTICS ORDERED. NO REDNESS OR SWELLING NOTED. CONSENT OBTAINED TO RECEIVED MEDICAL RECORDS FROM [facility]. EMPTIED LISA CATHETER GOT 450 ML OF CLEAR YELLOW URINE. WILL CONTINUE TO MONITOR. CALL LIGHT IN REACH. BED IN LOWEST POSITION.
[2018-12-18 16:57] VITALS: BP 158/90
--- NOTE | 2018-12-18 20:04 | NUR ---
PT RECIEVED AAO WITH FAMILY AT THE [facility] RESP NO SOB PT ON 5L OXIMIZER WITH SAT 96% PT ON CONTINOUS PULSES OXIMETER HOB,V/S STABLE,KEPT CLEAN AND DRY TO TOUCH,PT HAS HL RO THE RFA HAND WITH THE SITE PATENT AND INTACT,PT HAS A F/C TO GRAVITY WITH AL URINE OUTPUT,BLE DISCOLORATION,CALL LIGHT EASY REACHED AND WILL CONTINUE TO MONITOR.
[2018-12-18 20:57] VITALS: BP 150/84
--- NOTE | 2018-12-18 21:10 | NUR ---
CALL FROM DR ROWLAND TO CONTINING THE LASIX DRIP,MADE PHARMACY AWARE AND HELP TO ORDER HOB AND WILL CONTINUE TO MONITOR.
--- NOTE | 2018-12-18 21:27 | NUR ---
PHARMACY CALLED SAYS PATIENT CANT HAVE AIV SILAS DUARTE AND A SCHDULED FELICIA,CALLING TO MAKE REPORT TO THE PATIENT LEFT MESSAGE TO INSIDE SALES MANAGER,WAITING FOR DR ROWLAND TO CALL,WILL CONTINUE TO MONITOR.
--- NOTE | 2018-12-18 22:03 | NUR ---
DR JORDAN CALL AND ORDER TO D/C THE LASIX AND WILL CONTINUE TO MONITOR
--- NOTE | 2018-12-18 22:15 | NUR ---
STARTED THE LASIX DRIP ON THE PATIENT AT 10 ML ORDER AND WILL CONTINUE TO MONITOR.
[2018-12-19] VITALS (10 sets, daily range): BP systolic 119–187; BP diastolic 69–95
--- NOTE | 2018-12-19 00:33 | NUR ---
PT RESTING AT THIS TIME AND WILL CONTINUE TO MONITOR.
--- NOTE | 2018-12-19 03:44 | NUR ---
PT ANXIOUS AND STARTED TAKING OFF OXYGEN AND ALSO WANT TO USE THE BATHROOM,PT WAS HELP TO THE BATHROOM WITH A WALKER,WILL MELINA SKINNER.
[2018-12-19 06:24] LABS: BASOPHIL % 0.5 % (0-2); PLATELET COUNT 259 x10^3mcL (130-400)
--- NOTE | 2018-12-19 06:40 | NUR ---
PT HAD A RESTING NIGHT,NO CHANGE AT THIS TIME,KEPT CLEAN AND DRY TO TOUCH AND WILL CONTINUE TO MONITOR.
[2018-12-19 06:46] LABS: CALCIUM 7.7 mg/dL (8.5-10.1); POTASSIUM SERUM 4.5 mmol/L (3.5-5.1)
[2018-12-19 07:24] LABS: RED CELL DISTRIBUTION WIDTH 16.8 % (11.5-14.5)
--- NOTE | 2018-12-19 07:40 | NUR ---
RECEIEVED PT FROM CONTINUITY TESTER RN. CONTRERAS. TELE#21. DENIES CHEST PAIN/PRESSURE. RESPIRATIONS EQUAL AND UNLABORED ON OXIMIZER 3L. NO ACUTE RESP DISTRESS NOTED. PT CONTINUALLY TRYING TO REMOVE OXYGEN. PT EDUCATED ON IMPORTANCE OF KEEPING OXYGEN ON. IV LASIX INFUSING ORDERED AT 10 ML/HR TO RFA. NO REDNESS OR SWELLING NOTED. LISA CATHETER IN PLACE, SECURED TO THIGH DRAINING CLEAR YELLOW URINE. WILL CONTINUE TO MONITOR. CALL LIGHT IN REACH. BED IN LOWEST POSITION.
--- NOTE | 2018-12-19 09:30 | NUR ---
PT SITTING UP IN BED. NO ACUTE RESP DISTRESS NOTED ON OXYMIZER 3L. PT DENIES ANY PAIN AT THIS TIME. GIVEN PO MEDS. TOLERATED WELL. IV LASIX INFUSING TO RFA AT 10 ML/HR. NO REDNESS OR SWELLING NOTED. FLUSHED WELL. EMPTIED LISA CATHETER OF 650 ML OF CLEAR YELLOW URINE. WILL CONTINUE TO MONITOR. CALL LIGHT IN REACH. BED IN LOWEST POSITION,
--- NOTE | 2018-12-19 11:56 | NUR ---
RADHA AT BEDSIDE. US GUIDED THORACENTESIS IN PROGRESS.
--- NOTE | 2018-12-19 11:59 | NUR ---
LISA CATHETER EMPTIED 400 ML OF CLEAR YELLOW OUT.
--- NOTE | 2018-12-19 12:25 | NUR ---
1. Recommend continuing cardiac, CCHO diet with fluid restriction (1000 ml/day).
--- NOTE | 2018-12-19 12:25 | NUR ---
Follow-up Nutrition Assessment: 220T/A YUAN BAE LR Dx: Hypertensive urgency PMHx: HTN, HLD, DM2 Labs: BG 139H, BUN 64H, CREAT 3.0H, ALB 1.6L, HGB 7.0L Meds: D 50%, Dulcolax, Humulin, Lasix, Pepcid, zosyn, zofran Diet: Cardiac, CCHO, FR 1L/day PO Intake: (12/19) breakfast 100%, (12/18) 100% all meals, (12/17) dinner, lunch 100% Weights: (12/13) 93.8 kg, (12/19) 80.1 kg (wt fluctuations d/t fluid retention, thoracentesis) I/Os: (12/18) 1280/1800 (-520) Skin: intact Italo: 18 Edema: +1 BLE GI: Last BM: 12/17 Note (12/19): Patient was sleeping. Per RN Arianna, patient does not have any N/V/D/C at this time and has good PO. Patients is on fluid restriction 1000 ml/day. Per progress note (12/18), Patient continues to be SOB and on oximizer 5LPM. Patient is S/P thoracentesis 1.5L of fluid removal. Patient continues to be on lasix 40mg IV BID. He's tolerating diet. Estimated Nutritional Needs Based on adjusted body weight (74 kg) Energy: 4008-2774 kcal/day (25-30 kcal/kg for) Protein: 74-89 g/day (1.0-1.2 g/kg to preserve LBM) Fluid: 6063-2917 mL/day (1 mL/kcal) Nutrition Diagnosis: 1. Impaired nutrient utilization related to renal insufficiency, ESTEE as evidenced by BUN:64, CREAT 3.0. Intervention: 1. Recommend continuing cardiac, CCHO diet with fluid restriction (1000 ml/day) Monitor/Evaluate: Goal: Have pt meet at least 75% of estimated needs Monitor: PO intake, Labs, GI function F/U in 7 days as moderate risk 12/26
--- NOTE | 2018-12-19 13:58 | NUR ---
THOARCENTESIS COMPLETE. EMPTIED 1800 ML OF OLEA COLOR FLUID FROM RIGHT SIDE, 550 ML OF OLEA COLOR FLUID FROM LEFT SIDE. BLOOD SUGAR CHECKED WAS 97. NO COVERAGE NEEDED. IV PATENT AND INFUSING TO RFA. NO REDNESS OR SWELLING NOTED. NO ACUTE RESP DISTRESS NOTED ON OXIMIZER 5L. SPOKE WITH X-RAY TECH, WILL DO CXR SOON. VITALS BEING CHECKED Q15. WILL CONTINUE TO MONITOR. CALL LIGHT IN REACH. BED IN LOWEST POSITION..
--- NOTE | 2018-12-19 15:27 | NUR ---
PHYSICAL THERAPY DAILY NOTES CO-SIGN All documentation done by the [employer] Safety Program Coordinator for 12/19/18 has been reviewed. I agree with the documentation. Reviewed/Co-Signed by: Faby Henry PT Documentation Done by:SOFIE GRAHAM PTA
--- NOTE | 2018-12-19 19:50 | NUR ---
RECEIVED REPORT FROM DAY SHIFT NURSE, DIONISIO KRAMER. PT IS A/O X4. SPEECH IS CLEAR. HONG KONGER SPEAKING. FAMILY AT BEDSIDE. DENIES CRAWFORD. TELE #21 READING SR 79. DENIES CP. PULSES ARE PALPABLE. BLE EDEMA. BREATHING IS EVEN AND UNLABORED ON 4L OXIMIZER. LUNG SOUNDS ARE DIMINISHED SARA, BUL FINE CRACKLES. ABD IS SOFT AND NONDISTENDED. LISA CATH DRAINING BRIGHT YELLOW URINE. GENERALIZED WEAKNESS. DRESSING TO L BACK X2 WITH HEMATOMA, AND TO R BACK S/P THORACENTESIS. CDI. BLE DISCOLORATION. DENIES PAIN AT THIS TIME. BED IN LOWEST POSITION. CALL LIGHT WITHIN REACH. WILL CONTINUE TO MONITOR.
--- NOTE | 2018-12-19 22:22 | NUR ---
ROUTINE MEDICATIONS ADMINISTERED AND TOLERATED WELL. DENIES PAIN. DENIES SOB. ENCOURAGED PT TO USE IS. FAMILY AT BEDSIDE. ENCOURAGED PT TO USE CALL LIGHT IF IN NEED OF ANY ASSISTANCE OR HAVING ANY DISCOMFORT. BED IN LOWEST POSITION. WILL CONTINUE TO MONITOR.
--- NOTE | 2018-12-19 23:53 | NUR ---
PTS BP WAS 168/80. MEDICATED WITH ROUTINE MEDICATION APRESOLINE 50MG. WILL REASSESS EFFECTIVENESS.
[2018-12-20] VITALS (7 sets, daily range): BP systolic 144–172; BP diastolic 72–90
--- NOTE | 2018-12-20 00:01 | NUR ---
INFORMED DR. DUBOSE ABOUT PTS HCT/ HGB LEVELS 09/29 S/P THORACENTESIS. INSTRUCTED TO MONITOR.
--- NOTE | 2018-12-20 01:55 | NUR ---
PTS BP WAS 172/87 (101). ADMINISTERED PRN HYDRALAZINE IV PRN PER MAY ORDER. WILL RECHECK EFFECTIVENESS. BREATHING IS EVEN AND UNLABORED ON 4L OTIMIZER. NO SOB. RESTING COMFORTABLY. BED IN LOWEST POSITION. CALL LIGHT WITHIN REACH. WILL CONTINUE TO MONITOR.
--- NOTE | 2018-12-20 03:00 | NUR ---
CHECKED PTS BP AFTER PRN HYDRALAZINE, BP READS 161/90 (113). WILL CONTINUE TO MONITOR. PT IS RESTING COMFORTABLY WITH EYES CLOSED, BUT EASILY AROUSABLE WHEN SPOKEN TO. SAO2 98%. BED IN LOWEST POSITION. CALL LIGHT WITHIN REACH. WILL CONTINUE TO MONITOR.
--- NOTE | 2018-12-20 05:25 | NUR ---
REPORTED BP 170/81. ADMINISTERED ROUTINE MEDICATION APRESOLINE. DENIES CP AT THIS TIME. WILL RECHECK.
--- NOTE | 2018-12-20 05:52 | NUR ---
PT SLEPT IN INTERVALS THROUGHOUT THE NIGHT. PT COMPLIED WITH NURSING CARE THROUGHOUT THE SHIFT WITH NO ACUTE EVENTS OVERNIGHT. NO RESP DISTRESS NOTED. COMFORT AND SAFETY MEASURES MAINTAINED. ALL NEEDS ASSESSED AND ATTENDED TO. WILL CONTINUE TO MONITOR AND ENDORSE CARE TO DAY SHIFT NURSE.
[2018-12-20 06:16] LABS: BASOPHIL % 0.4 % (0-2); PLATELET COUNT 248 x10^3mcL (130-400)
[2018-12-20 06:36] LABS: CALCIUM 7.5 mg/dL (8.5-10.1); CARBON DIOXIDE 30.8 mmol/L (21-32); CREATININE SERUM 3.1 mg/dL (0.7-1.3)
--- NOTE | 2018-12-20 07:02 | NUR ---
BP RECHECKED AFTER APRESOLINE @ 170/77 MMHG,HR 79.CONTINUE TO DENIES CHESTPAIN.WILL ENDORSE TO AM NURSE.
[2018-12-20 07:35] LABS: RED CELL DISTRIBUTION WIDTH 16.7 % (11.5-14.5)
--- NOTE | 2018-12-20 08:00 | NUR ---
PATIENT RECEIVED ALERT AND ORIENTED TIMES FOUR. SPAINISH SPEAKING BUT UNDERSTANDS UKRAINIAN WELL. PATIENT HAS RALES TO THE LUNGS AND DIMINISHED BASES. PATIENT IS A BIT AGITATED THIS AM. PATIENT WAS ADVISED TO KEEP HEAD UP AND HE WAS WANTING TO LIE FLAT APPARENTLY THE PATIENT JUST WANTED TO REPOSITION AND HE DID NOT INDICATE TO THE STAFF AND HE DID SO AND NOW PLACED WITH HEAD UP HIGH TO EAT. PATIENT HAS NO COUGH AT THIS TIME AND HAS A THORACENTESIS AND FLUID REMOVED FROM BOTH LUNGS AND DRESSING INTACT TO THE BOTH SITES. PATIENT HAS NO COMPLAINTS OF PAIN AT THIS TIME BUT HAS NOTED ELEVATED BP AND GAVE ALL MEDICATIONS AND WILL RETURN TO CHECK HIS STATUS AGAIN. PATIENT HAS EDEMA TO THE LOWER EXTREMTIES AND HAS BEEN ON LASIX IVPB CONTINUOUS AT THIS TIME. PATIENT EVANS BEEN ON BEDREST AND WITH LISA TO GRAVITY AND URINE IS AL AND CLEAR. PATIENT HAS A GOOD OUTPUT AND IS ON STRICT I AND O FOR HX OF KIDNEY DISFUNCTION AND CHF. VITALS AT THIS TIME AT SHOW THE BP AT 170/82, 75, 18, 98.7, 98% ON 02 AT 4 LITERS VIA OXYMIZER. WILL CONTINUE TO MONITOR FOR ANY CHEST PAIN OR SOB INDICATED. SKIN IS WITH SOME JUANDICED APPEARANCE AND EDMEA NOTED TO THE LOWER EXTREMTIES AND WITH SCDS IN PLACE.
--- NOTE | 2018-12-20 11:00 | NUR ---
GAVE HYDOLYZINE FOR ELEVATED BP. WILL RECHECK INDICATED. RECEIVED BREATHING TREATMENTS AND HAS BEEN ASYMPTOMATIC OF ELEVATED BP. WILL CONTINUE TO MONITOR
--- NOTE | 2018-12-20 13:18 | NUR ---
HAD GIVEN THE HYDROLYZINE AND PATIENT BP IS AT 160 NOW AND PATIENT HAS RECEIVED IVP. PATIENT TOLERATED 02 AT 2S NOW AND IS WITH NO COMPLAINTS OF SOB.
--- NOTE | 2018-12-20 13:33 | NUR ---
PHYSICAL THERAPY DAILY NOTES CO-SIGN All documentation done by the Press Tool Maker for 12/20/18 has been reviewed. I agree with the documentation. Reviewed/Co-Signed by: Faby Henry PT Documentation Done by: SOFIE GRAHAM PTA
--- NOTE | 2018-12-20 14:20 | NUR ---
PATIENT RECEIVED A VISIT FROM FAMILY. PATIENT IS RESTING QUIETLY AND NO COMPLAINTS OF PAIN AT THIS TIME.
--- NOTE | 2018-12-20 17:00 | NUR ---
PATIENT HAS A 99 ON HIS BLOOD SUGAR. STILL A BIT AGITATED AT TIMES. HE HAS TAKEN OFF HIS 02 ADN THE SATURATION DROPPED INTO THE 70'S REPLACED THE CANNULA AND BOOTED UP TO 4 FOR NOW AND WILL TITRATE AGAIN TO THE 20 LITERS HE WAS DOING WELL ON EARLIER. WILL CONTINUE TO MONITOR.
--- NOTE | 2018-12-20 19:47 | NUR ---
SHIFT REASSESSMENT DONE.ALERT AND ORIENTED.MAINLY GEORGIAN,NEEDS ANTICIPATED.O2 AT 4 LITER N/C.GEN WEAKNESS.LASIX DRIP 5 ML/HOUR.IV SITE RFA.LISA INTACT.CLEAR URINE.ATB SCHEDULED.TELE 21 NSR.X2 DRESSING L BACK WITH HEMATOMA.R BACK S/P THORACENTESIS.BLE EDEMA.CALL LIGHT IN REACH.
--- NOTE | 2018-12-20 21:32 | NUR ---
PM MEDS GIVEN,SWALLOWS WELL.ATB SCHEDULE.CALL LIGHT IN REACH.
--- NOTE | 2018-12-20 23:55 | NUR ---
MIDNIGHT MED GIVEN.NO INCIDENT,O2 AT 2 LITERS,O2 SAT RECHECKED 94%MONITOR TELE SAYS LOW,WILL CHECK AND CHANGE SENSOR.
[2018-12-21] VITALS (7 sets, daily range): BP systolic 127–188; BP diastolic 57–96
--- NOTE | 2018-12-21 00:45 | NUR ---
PATIENT PASSING A LOT OF GAS,HS CARE OFFERED BUT DECLINE.LASIX INFUSING WELL.NEW BAG SOON.
--- NOTE | 2018-12-21 02:19 | NUR ---
CHECKED AT INTERVALS FOR NEEDS AND SAFETY.
--- NOTE | 2018-12-21 06:05 | NUR ---
PATIENT AM MED GIVEN,HTN MED.ASSISTED TO RESTROOM,HAD BM.COMPLETE BED CHANGED O2 EXTENSION TUBING,PORTABLE O2 USED.NO INCIDENT.WILL ENDORSE TO NEXT SHIFT.
[2018-12-21 07:11] LABS: BASOPHIL % 0.4 % (0-2); PLATELET COUNT 240 x10^3mcL (130-400)
[2018-12-21 07:12] LABS: CALCIUM 7.6 mg/dL (8.5-10.1); CARBON DIOXIDE 32.7 mmol/L (21-32); MAGNESIUM 2.1 mg/dL (1.8-2.4); POTASSIUM SERUM 3.8 mmol/L (3.5-5.1)
[2018-12-21 07:23] LABS: RED CELL DISTRIBUTION WIDTH 16.8 % (11.5-14.5)
--- NOTE | 2018-12-21 08:00 | NUR ---
RECEIVED REPORT FROM NAIL KEGGER AND PATIENT IS RESTFULLY SLEEPING AT THIS TIME. IV INTACT AND CONTINUED ON LASIX ORDERED. LISA OUTPUT IS CLEAR YELLOW AND OF ADEQUATE AMOUNT. WILL CONTINUE TO MONITOR FOR ANY SIGNS OF RESPIRTORY DISTRESS. CONTINUE ON 02 INDICATED. PATIENT HAS BEEN WITH NOTED DESATURATION OF THE 02 AND HAS NOT TOLERATED ANY LENGTH TIME. PATIENT WITH DIMINISHED BREATH SOUNDS AND ABDOMEN IS DISTENDED BUT SOFT AT THIS TME. PATIENT HAS SOME TRACE EDEMA AND IS MUCH IMPROVED OVER YESTERDAY.
--- NOTE | 2018-12-21 08:00 | NUR ---
RECEIVED REPORT FROM DIGITAL FORENSIC EXAMINER AND PATIENT IS RESTFULLY SLEEPING AT THIS ME. IV INTACT AND CONTINUED ON LASIX ORDERED. LISA OUTPUT IS CLEAR YELLOW AND OF ADEQUATE AMOUNT. WILL CONTINUE TO MONITOR FOR ANY SIGNS OF RESPIRTORY DISTRESS. CONTINUE ON 02 INDICATED.
--- NOTE | 2018-12-21 11:46 | NUR ---
PATIENT HAS BEEN ADVISED OF THE INDICATION FOR FLUID RESTRICTION. PATIENT WANTS MORE FLUIDS. PATIENT ON FLUID RESTRICTION DUE TO POOR KIDNEY FUNCTION DN FLUIDS DEPOSITING IN THE LUNGS WITH CHF. WILL CONTINUE WITH RESTRICTIONS INDICATED.
--- NOTE | 2018-12-21 12:02 | NUR ---
PATIENT HAD RECEIVED A SANDWICH IN THE MORNING POST THE BREAKFAST AND PATIENT BLOOD SUGAR WAS AT 116 AT LUNCH AND NO INDICATION FOR COVERAGE NOTED.
--- NOTE | 2018-12-21 17:42 | NUR ---
PATIENT HAS BEEN SEEN BY DR DENNY LEIJA A STAFF INTERPRETED FOR DR BALDWIN. PATIENT IS AWARE OF THE POSSIBLE SURGERY ALREADY FROM THE SOLAR ENERGY SYSTEM INSTALLER AND PRIMARY DOCTOR. DR BALDWIN STATES HE WILL DO ON SUNDAY AND NOT TO EAT OR DRINK ANYTHING AFTER MIDNIGHT. PATIENT HAS THIS REINFORCED HE HAS BEEN NON COMPLIANT WITH THE FLUIDS TODAY AND STAFF MEEDED TO REMIND THEM ABOUT THE FLUID RESTRICTIONS AND WHY. PATIENT TO BE GIVEN A CONSENT FORM FOR THIS SURGERY. PATIENT HAS TOLERATED THE LASIX AND OUTPUT IS GOOD OF URINE AND THE EDEMA IS MUCH IMPROVED. PATIENT CONTINUED ON NASAL CANNULA AND NO ACUTE DISTRESS NOTED.
--- NOTE | 2018-12-21 19:30 | NUR ---
RECEIVED PT IN BED AND APPEARS TO BE SLEEPING COMFORTABLY. HE IS EASILY AROUSABLE. HE IS ORIENTED X4. LUNG SOUNDS CLEAR BUT DIMINISHED AT THE BASES. NO SOB NOTED. ON O2 AT 2L VIA N/C. HE HAS NO C/O PAIN. W/ IV LASIX INFUSING AT 5 CC/HR VIA RTFA. LISA CATH INTACT AND PATENT. CALL LIGHT W/IN REACH.
[2018-12-22] VITALS (7 sets, daily range): BP systolic 107–189; BP diastolic 63–98
--- NOTE | 2018-12-22 02:07 | NUR ---
PT APPEARS TO BE SLEEPING COMFORTABLY. RESP. EVEN AND UNLABORED.
--- NOTE | 2018-12-22 05:12 | NUR ---
PT SLEPT AT LONG INTERVALS. HE HAD NO C/O PAIN. NO EPSIDOE OF SOB. HE REMAINS ON O2 AT 2L N/C. NO BM NOTED. LISA CATH INTACT AND PATENT. IV LASIX INFUSING AT 5 CC/HR. ALL NEEDS ATTENDED TO.
[2018-12-22 06:58] LABS: BASOPHIL % 0.8 % (0-2); PLATELET COUNT 262 x10^3mcL (130-400)
[2018-12-22 06:59] LABS: RED CELL DISTRIBUTION WIDTH 16.5 % (11.5-14.5)
[2018-12-22 07:06] LABS: CALCIUM 7.5 mg/dL (8.5-10.1); CARBON DIOXIDE 32.2 mmol/L (21-32); MAGNESIUM 2.1 mg/dL (1.8-2.4); PHOSPHOROUS 4.9 mg/dL (2.5-4.9); POTASSIUM SERUM 3.9 mmol/L (3.5-5.1)
--- NOTE | 2018-12-22 07:20 | NUR ---
RECEIVED PT. IN BED A/A/O C3. NO SOB, NO N/V NOTED. PT. DENIES ANY PAIN AT THIS TIME. PT. IS ON LASIX DRIP RUNNING AT 5 CC/HR. VIA IV SITE AT R FA. F/C DRAINING YELLOW URINE. SCD TO BLE MAINTAINED. BED IN LOW POS., CALL LIGHT WITHIN REACH. SIDE RAILS UP X3.
--- NOTE | 2018-12-22 12:05 | NUR ---
PATIENT B/P 184/98, HYDRALAZINE 20MG IV GIVEN.
--- NOTE | 2018-12-22 13:52 | NUR ---
B/P RECHECKED. B/P= 168/89, P= 70. WILL CONTINUE TO MONITOR.
--- NOTE | 2018-12-22 16:00 | NUR ---
CALLED Brent AGUILAR TO VERIFY CONSENT FOR SURGERY. DR. BALDWIN STATED HE WILL ENTER THE CONSENT FOR THE ACTUAL PROCEDURE LATER. NO FURTHER ORDER RECEIVED AT THIS TIME.
--- NOTE | 2018-12-22 17:00 | NUR ---
PATIENT BLOOD SUGAR IS 181 AT 1629. ATTEMPTED TO GIVE HUMULIN R 3 UNITS MEDICATION TWICE, PATIENT REFUSED MEDICATION AT BOTH TIMES.
--- NOTE | 2018-12-22 17:23 | NUR ---
PATIENT BLOOD SUGAR IS 181. PATIENT REFUSED HUMULIN R 3 UNITS SQ MEDICATION.
--- NOTE | 2018-12-22 18:14 | NUR ---
PATIENT IS STABLE AT THIS TIME. HYDRALAZINE 20 MG IV GIVEN AT 1754 FOR BP OF 171/83. LASIX DRIP MAINTAINED AT 5CC PER HOUR. WILL CONTINUE TO MONITOR.
--- NOTE | 2018-12-22 19:20 | NUR ---
RECEIVED PT IN BED AWAKE AND TALKING TO A VISITOR AT BEDSIDE . HE IS ALERT,ORIENTED X4. LUNG SOUNDS DIMINISHED AT THE BASES. NO SOB NOTED WHILE AT REST. ON O2 AT 2L VIA N/C. HE HAS NO C/O PAIN AT THIS TIME. BOWEL SOUNDS ACTIVE. LISA CATH INTACT AND PATENT. W/ LASIX IV INFUSING AT 5 CC/HR VIA RTFA. CALL LIGHT W/IN REACH.
--- NOTE | 2018-12-22 21:10 | NUR ---
IV DUE FOR CHANGE. IV TO RTFA REMOVED. STARTED NEW IV ON THE LT HAND. PT TOLERATED PROCEDURE WELL.
[2018-12-23] VITALS (8 sets, daily range): BP systolic 112–185; BP diastolic 63–94
--- NOTE | 2018-12-23 01:30 | NUR ---
PT APPEARS TO BE SLEEPING COMFORTABLY. RESP. EVEN AND UNLABORED.
--- NOTE | 2018-12-23 05:13 | NUR ---
PT SLEPT AT LONG INTERVALS. HE REMAINED ON 2L O2 VIA N/C. PT WAS ADVISED TO CONTINUE USING I.S. PT BREATHING BETTER BUT SILL W/ SOB ON EXERTION. PT ALSO HAD EPISODES OF CONFUSION/ FORGETFULNESS. LISA CATH INTACT AND PATENT. NO BM NOTED THIS SHIFT. LASIX IV INFUSING AT 5 CC/HR VIA LT HAND. ALL NEEDS ATTENDED TO.
--- NOTE | 2018-12-23 05:40 | NUR ---
PT AWAKE AND USING HIS PHONE. PT MORE ALERT AND ORIENTED X4. NO SOB AT TIS TIME.
--- NOTE | 2018-12-23 05:50 | NUR ---
PT SIGNED CONSENT FOR ABDOMINAL WALL EXCISIONAL BIOPSY. PT VERBALIZED UNDERSTANDING.
[2018-12-23 07:02] LABS: BASOPHIL % 0.8 % (0-2); PLATELET COUNT 268 x10^3mcL (130-400)
[2018-12-23 07:04] LABS: BILIRUBIN TOTAL 0.2 mg/dL (0.20-1.00); CALCIUM 7.6 mg/dL (8.5-10.1); CREATININE SERUM 3.3 mg/dL (0.7-1.3); POTASSIUM SERUM 3.8 mmol/L (3.5-5.1)
[2018-12-23 07:05] LABS: CALCIUM 7.4 mg/dL (8.5-10.1); CARBON DIOXIDE 32.7 mmol/L (21-32); CREATININE SERUM 3.3 mg/dL (0.7-1.3); POTASSIUM SERUM 3.8 mmol/L (3.5-5.1)
[2018-12-23 07:06] LABS: ALBUMIN 1.8 g/dL (3.4-5.0)
--- NOTE | 2018-12-23 07:20 | NUR ---
RECEIVED PT FROM CUSTOMER SERVICE LEADER WILLIAMS. Matt/CURTIS. TELE#21. DENIES CHEST PAIN/PRESSURE. RESPIRATIONS EQUAL AND UNLABORED ON 2L NC. DENIES ANY SOB. PT DENIES ANY PAIN AT THIS TIME. IV LASIX INFUSING AT 5ML/HR TO LH. NO REDNESS OR SWELLING NOTED. PT AWARE OF PROCEDURE TODAY AT 1300, PT AWARE TO REMAIN NPO UNTIL PROCEDURE IS COMPLETE. PT VERBALIZED UNDERSTANDING. LISA CATHETER IN PLACE, SECURED TO THIGH DRAINING CLEAR YELLOW URINE. WILL CONTINUE TO MONITOR. CALL LIGHT IN REACH. BED IN LOWEST POSITION.
[2018-12-23 07:48] LABS: RED CELL DISTRIBUTION WIDTH 16.4 % (11.5-14.5)
--- NOTE | 2018-12-23 09:34 | NUR ---
PT SITTING UP IN BED. NO ACUTE RESP DISTRESS NOTED ON 2L NC. PT BLOOD PRESSURE CHECKED WAS 187/89, HR 69. PT DENIES ANY PAIN AT THIS TIME. GIVEN PO MEDS. TOLERATED WELL. SPOKE WITH JUDD IN OR PT SURGERY MOVED UP TO 1030. REPORT GIVEN TO JUDD KRAMER. IV TO SALINE LOCKED. FLUSHED WELL. NO REDNESS OR SWELLING NOTED. MARKOS WIPES USED. LISA CATHETER EMPTIED 600 ML OF CLEAR YELLOW URINE. WILL CONTINUE TO MONITOR. CALL LIGHT IN REACH. BED IN LOWEST POSITION.
--- NOTE | 2018-12-23 09:50 | NUR ---
PT TAKEN OFF FLOOR TO OR VIA BED. TELE#21 RETURNED TO [facility] [employer] [facility].
--- NOTE | 2018-12-23 12:15 | NUR ---
RECEIVED PT BACK FROM OR. VS STABLE. PT STATES PAIN TO ABDOMEN IS 1/10 DULL AND TOLERABLE AT THIS TIME. PT ASKING TO EAT. GIVEN TRY. BLOOD PRESSURE CHECKED WAS 176/94, HR 69. GIVEN PO MEDS. TOLERATED WELL. BLOOD SUGAR WAS 105. NO COVERAGE NEEDED. DRESSING TO RLQ ABDOMEN, CDI. NO DRAINAGE NOTED. LISA CATHETER EMPTIED 400 ML OF CLEAR YELLOW URINE. IV TO LH FLUSHED WELL. IV LASIX INFUSING AT 5ML/HR. WILL CONTINUE TO MONITOR. CALL LIGHT IN REACH. BED IN LOWEST POSITION.
--- NOTE | 2018-12-23 13:21 | NUR ---
PAlessandraT. NOTES PATIENT REFUSED TO BE SEEN BY P.T., STATES JUST GOT BACK FROM A PROCEDURE AND WOULD LIKE TO JUST GET SOME REST.
--- NOTE | 2018-12-23 13:45 | NUR ---
PT SITTING UP IN BED. NO ACUTE RESP DISTRESS NOTED ON 3L NC. PT DENIES ANY PAIN AT THIS TIME. IV LASIX INFUSING ORDERED AT 5 ML/HR TO . IV ANTIBIOTICS INFUSING ORDERED. WILL CONTINUE TO MONITOR. CALL LIGHT IN REACH. BED IN LOWEST POSITION.
--- NOTE | 2018-12-23 15:04 | NUR ---
SPOKE WITH DR. ROWLAND. PER DR. ROWLAND D/C LASIX DRIP, START PT OK LASIX 40 MG IV BID, TO HOPEFULLY GET PT READY FOR DISCHARGE. PER DR. ROWLAND PLEASE SPEAK WITH CORE SHAPER TOP TO GET PT A COUNTY APPOINTMENT SET UP WITH RESEARCH PROFESSOR OF BIOSTATISTICS PRIOR TO DISCHARGE. PER DR. ROWLAND VERY IMPORTANT THAT PT ABDOMINAL WALL BIOPSY IS TESTED TO RULE OUT AMYLOIDOSIS. SPOKE WITH REJI IN PATHOLOGY. PER REJI WILL INFORM PATHOLOGIST ONCE PATHOLOGIST COMES IN TO INFORM HIM TEST IS TO RULE OUT AMYLOIDOSIS.
--- NOTE | 2018-12-23 19:37 | NUR ---
PT SEEN, RESTING IN BED WITH HOB, ALERT AND ORIENTED WITH KOREAN SPEAKING, DENIES HEADACHE OR DIZZINESS, BREATHING EVEN AND UNLABORED, LUNG SOUNDS DIMINISHED, ON O2 3L VIA NC WITH NO RESP DISTRESS NOTED, ON TELE#21 NSR, DENIES CHEST PAIN, SL TO LH, PULSES PALPABLE, EDEMA NOTED TO BLE, GENERALIZED WEAKNESS, ABD SOFT WITH ACTIVE BS, NO BM AT THIS TIME, LISA VIA GRAVITY DRAINING YELLOW URINE, NO DISTRESS NOTED, WILL KEEP TO MONITOR.
[2018-12-24] VITALS (7 sets, daily range): BP systolic 149–18149; BP diastolic 7–90
--- NOTE | 2018-12-24 06:20 | NUR ---
PT ASLEEP BUT EASILY AROUSABLE, SLEPT ON AND OFF WHOLE NIGHT, BREATHING EVEN AND UNLABORED ON O2 3L VIA NC WITH SPO2:100%, NO RESP DISTRESS OR SOB NOTED, PT WAS ABLE TO WALK TO BATHROOM WITH MOD ASSIST AND BACK TO BED WITHOUT INCIDENT, MORNING BLOOD SUGAR: 117 MG/DL WITH NO RISS, NO DISTRESS NOTED, WILL KEEP TO MONITOR.
[2018-12-24 06:42] LABS: BASOPHIL % 0.6 % (0-2); PLATELET COUNT 265 x10^3mcL (130-400)
[2018-12-24 06:49] LABS: CALCIUM 7.8 mg/dL (8.5-10.1); CARBON DIOXIDE 32.6 mmol/L (21-32); CREATININE SERUM 3.3 mg/dL (0.7-1.3); POTASSIUM SERUM 3.6 mmol/L (3.5-5.1)
[2018-12-24 07:13] LABS: RED CELL DISTRIBUTION WIDTH 16.5 % (11.5-14.5)
--- NOTE | 2018-12-24 07:57 | NUR ---
RECEIVED PATIENT FROM WILLIAMS MORRISON. PATIENT IN BED AT THIS TIME, SLEEPING. NO SIGNS OF CP OR SOB. WHEN PATIENT AWAKE WILL DISCUSS PLAN OF CARE FOR TODAY. WILL ALSO AWAIT FOR GROUND OPERATIONS CREW MEMBER FRANNY, DR ROWLAND TO SEE PATIENT. LAB CALLED FOR CRITICAL VALUES OF HGB/HCT 6.9. WILL ALSO INFORM GROUND OPERATIONS CREW MEMBER FRANNY. CALL LIGHT IN REACH AT THIS TIME.
--- NOTE | 2018-12-24 08:20 | NUR ---
TITRATED O2 TO 2L NC. SPO2:97%. NO ACUTE RESP DISTRESS NOTED. WILL MONITOR
--- NOTE | 2018-12-24 09:03 | NUR ---
PATIENT NOW AWAKE. MILD COMPLAINTS OF PAIN AROUND SURGICAL INCISION. DRESSING IS CLEAN DRY AND INTACT, STATES PAIN IS 1/10. DENIES NEED FOR PAIN CONTROL. STILL AWAITING FOR COUNTY ADMINISTRATOR FRANNY TO SPEAK WITH PATIENT. CALL LIGHT IN REACH AT THIS TIME.
[2018-12-24 09:05] LABS: COMPLEMENT C3 96 mg/dL (82-167); COMPLEMENT C4 28 mg/dL (14-44); COMPLEMENT TOTAL/CH50 > 60 U/mL (42-999999)
[2018-12-24 09:44] LABS: rbc morphology (normal/abnorm) ABNORMAL (NORMAL); schistocyte (helmet cell) 1+
--- NOTE | 2018-12-24 11:25 | NUR ---
DR ROWLAND AND TRACK GRINDER OPERATOR FRANNY IN TO DISCUSS FURTHER PLAN FOR PATIENT. WILL WORK WITH CASE MANAGEMENT TO FIND FOLLOW UP CARE CLINICS AND FACILITIES. DR ROWLAND MADE AWARE TO CONTACT ABDI BURNETTE PER SENIOR GAME DESIGNER TAMIKO KRAMER. PATIENT IN BED, NO COMPLAINTS AT THIS TIME, PRN APRESOLINE IVP ADMINISTERED DUE TO HTN.
[2018-12-24 11:40] LABS: BASOPHIL % 0.5 % (0-2); PLATELET COUNT 267 x10^3mcL (130-400)
[2018-12-24 11:42] LABS: RED CELL DISTRIBUTION WIDTH 16.2 % (11.5-14.5)
--- NOTE | 2018-12-24 15:03 | NUR ---
PHYSICAL THERAPY DAILY NOTES CO-SIGN All documentation done by the Tool Drawing Checker for 12/23/18 has been reviewed. I agree with the documentation. Reviewed/Co-Signed by: Faby Henry PT Documentation Done by:SOFIE GRAHAM PTA
--- NOTE | 2018-12-24 15:08 | NUR ---
PHYSICAL THERAPY DAILY NOTES CO-SIGN All documentation done by the Mold Car Pusher for 12/24/18 has been reviewed. I agree with the documentation. Reviewed/Co-Signed by: Faby Henry PT Documentation Done by:SOFIE GRAHAM PTA
--- NOTE | 2018-12-24 18:38 | NUR ---
PATIENT IN BED, NO COMPLAINTS OF PAIN AT THIS TIME. FAMILY AT BEDSIDE. WILL ENDORSE TO ONCOMING NURSE ABOUT PLAN OF CARE DUE TO PATIENT NOT BEING INSURED. BP NOW STABILIZED. CALL LIGHT IN REACH.
--- NOTE | 2018-12-24 19:20 | NUR ---
RECEIVED REPORT FROM LEIDA KRAMER. PT IS SITTING UP IN BED WITH FAMILY AT BEDSIDE. PT IS AAOX4 AND FRENCH SPEAKING. PT DENIES ANY HEADACHE OR DIZZINESS AT THIS TIME. PT IS ON TELE #21 WITH NSR WITH ELEVATED T WAVE WITH HR OF 76. PT DENIES ANY CHEST PAIN OR PRESSURE AT THIS TIME. PT PULSES PALPABLE AND CAP REFILL <3. TRACE EDEMA TO BLE. SCDS ARE IN PLACE BILATERALLY. PT BREATHING EVEN AND UNLABORED. PT LUNG SOUNDS ARE DIMINISED BLL. PT IS ON N/C 3L O2. PT DENIES ANY SOB OR RESPIRATORY DISTRESS AT THIS TIME. PT ABD IS SOFT AND NONDISTENDED. LBM WAS 12/23, FORMED. PT HAS A LISA CATH THAT IS DRAINING YELLOW URINE. LAST OUTPUT WAS 400 ML. PT IS ON STRICT I&O WITH 800 ML DAILY. PT DENIES ANY N/V AT THIS TIME. PT HAS INCISIONS WITH PEPITO COVERED WITH GAUZE WITH 4X4 TAPE ON ABD. PT HAS GENERALIZED WEAKNESS. PT IV IS PATENT AND WNL. CALL LIGHT WITHIN REACH. BED IN LOWEST POSITION. WILL CONTINUE TO MONITOR.
--- NOTE | 2018-12-24 21:10 | NUR ---
PT BP 158/77 WITH HR 76. SCHEDULED BP MEDS GIVEN. WILL REASSESS BP AND CONTINUE TO MONITOR.
[2018-12-25] VITALS (7 sets, daily range): BP systolic 124–184; BP diastolic 67–93
--- NOTE | 2018-12-25 01:21 | NUR ---
ROUNDED ON PT. PT SLEEPING, BUT EASILY AROUSABLE. PT BREATHING EVEN AND UNLABORED. PT DENIES ANY PAIN OR DISCOMFORT AT THIS TIME. ADMINISTERED SCHEDULED MEDS AND TOLERATED WELL. CALL LIGHT WITHIN REACH. BED IN LOWEST POSITION. WILL CONTINUE TO MONITOR.
--- NOTE | 2018-12-25 05:31 | NUR ---
PT SLEPT THROUGHOUT THE NIGHT, BUT EASILY AROUSABLE. PT COMPLIED WITH NURSING CARE THROUGHOUT THE SHIFT. NO ACUTE DISTRESS NOTED DURING THE SHIFT. COMFORT AND SAFETY MEASURES MAINTAINED. ALL NEEDS AND CONCERNS ADDRESSED. WILL ENDORSE CARE TO DAY SHIFT NURSE. CALL LIGHT WITHIN REACH. BED IN LOWEST POSITION. WILL CONTINUE TO MONITOR.
[2018-12-25 06:23] LABS: BASOPHIL % 0.6 % (0-2); PLATELET COUNT 252 x10^3mcL (130-400)
[2018-12-25 06:35] LABS: CALCIUM 7.7 mg/dL (8.5-10.1); CARBON DIOXIDE 31.6 mmol/L (21-32); CREATININE SERUM 3.5 mg/dL (0.7-1.3); POTASSIUM SERUM 3.9 mmol/L (3.5-5.1)
[2018-12-25 07:26] LABS: RED CELL DISTRIBUTION WIDTH 16.3 % (11.5-14.5)
--- NOTE | 2018-12-25 07:26 | NUR ---
ENDORSED CARE TO ANA KRAMER AND JENN KRAMER. ALL QUESTIONS AND CONCERNS ANSWERED.
--- NOTE | 2018-12-25 07:35 | NUR ---
SPOKE TO ICE CREAM MACHINE OPERATOR FRANNY REPORTED HGB OF 6.8 PER FRANNY SHE WILL ASSESS PATIENT . WILL PROCEED ORDERED.
--- NOTE | 2018-12-25 08:05 | NUR ---
RECEIVED REPORT FROM INTEGRATION ENGINEER NURSE PT LYING IN BED ASLEEP BUT AROUSABLE. PT IN NO APARENT DISTRESS. NC AT 3L BREATHING EQUALLY AND UNLABORED. DENIES ANY PAIN AT THIS TIME. BED IN LOW POSITION CALL LIGHT WITHIN REACH. IV ON LEFT HAND INTACT AND PATENT NO REDNESS OR EDEMA AT THIS TIME. ALL NEEDS ATTENDED TO WILL CONTINUE TO MONITOR.
--- NOTE | 2018-12-25 09:00 | NUR ---
PT LYING IN BED WATCHING TV. EXPLAINED TO PT HIS HGB IS 6.8 AND HE IS NEED OF A BLLOD TRANSFUSION PER OUTSIDE SALES PROFESSIONAL FRANNY ORDERS. PT VERBALIZED UNDERSTANDING AND SIGNED CONSENT. WILL PREPARE FOR INFUSION ONCE BLOOD IS READY. ALL NEEDS ATTENDED TO. WILL CONTINUE TO MONITOR.
--- NOTE | 2018-12-25 11:20 | NUR ---
INITIATED BLOOD TRANSFUSION. PT LYING IN BED ASLLEP NO ADVERSE REACTIONS NOTED. IV PATENT AND INTACT NO EDEMA OR REDNESS NOTED. VITALS STABLE WILL BE AT BEDSIDE FOR 15 MIN.
--- NOTE | 2018-12-25 11:21 | NUR ---
1. Recommend changing diet to Renal, CCHO with fluid restriction (1000 ml/day). Discussed recommendations with MONA Keller.
--- NOTE | 2018-12-25 11:21 | NUR ---
Follow-up Nutrition Assessment: 220T/A YUAN BAE LR Dx: Hypertensive urgency PMHx: HTN, HLD, DM2 Labs: (12/25) BG 131H, BUN 73H, CREAT 3.5H, ALB 1.8L, HGB 6.8L, CA 7.7L Meds: D 50%, Dulcolax, Humulin, Lasix, Pepcid, zosyn, zofran Diet: Cardiac, CCHO, FR 1L/day PO Intake: (12/25) breakfast 100%, (12/24) 100% all meals, (12/22) 100% all meals Weights: (12/13) 93.8 kg, (12/19) 80.1 kg (wt fluctuations d/t fluid retention, thoracentesis), (12/25) 80 kg I/Os: (12/24) 845/3570 (-2905) Skin: intact Italo: 18 Edema: +1 BLE GI: Last BM: 12/23 Note (12/25): Patient was alert and oriented and said that he does not have any N/V/D/C at this time and ate 100% breakfast this morning. Patient has good appetite. Per progress note (12/24) Patient remains on O2 3L via n/c. denies any sob. off of Lasix drip. Estimated Nutritional Needs Based on adjusted body weight (74 kg) Energy: 1069-9376 kcal/day (25-30 kcal/kg for) Protein: 74-89 g/day (1.0-1.2 g/kg to preserve LBM) Fluid: 3430-7022 mL/day (1 mL/kcal) Nutrition Diagnosis: 1. Impaired nutrient utilization related to renal insufficiency, ESTEE as evidenced by BUN:73, CREAT 3.5 (ongoing- lab values trending up) Intervention: 1. Recommend changing diet to Renal, CCHO with fluid restriction (1000 ml/day). Discussed recommendations with MONA Keller. Monitor/Evaluate: Goal: Have pt meet at least 75% of estimated needs Monitor: PO intake, Labs, GI function F/U in 7 days as moderate risk 01/01
--- NOTE | 2018-12-25 11:35 | NUR ---
15 MIN INTO BLOOD TRANSFUSION. NO ADVERSE REACTIONS NOTED PT VITALS SIGNS STABLE. ALL NEEDS ATTENDED TO. WILL INCREASE BLOOD TRANSFUSION TO BE INFUSED WITHIN THE NEXT 2 HRS. VITALS:98.1 74HR BP 156/98, RR 17, 98% 2L PT DENIES ANY DISCOMFORT.
--- NOTE | 2018-12-25 14:04 | NUR ---
PHYSICAL THERAPY NOTE ATTEMPTED SCHADULED PHYSICAL THERAPY SESSION; PATIENT RECEIVING BLOOD TRANSFUSION OF 12 PM
--- NOTE | 2018-12-25 14:10 | NUR ---
BLOOD TRANSFUSION COMPLETED AT THIS TIME. NO APARENT ADVERSE REACTIONS NOTED. VITALS STABLE: 98.1 HR 74, BP 137/75, RR 16, 99% 2LNC. ALL NEEDS ATTENDED TO CALL LIGHT WITHIN REACH WILL CONTINUE TO MONITOR. REPEAT H/H ORDERED.
--- NOTE | 2018-12-25 15:53 | NUR ---
PT LYING IN BED ASLEEP. ADMINISTERED SCHEDULED MED PER MAY. NO ADVERSE REACTIONS NOTED. CALL LIGHT WITH IN REACH BED IN LOW POSITION. PT IN NO APPARENT DISTRESS AT THIS TIME. ALL NEEDS ME WILL CONTINUE TO MONITOR.
--- NOTE | 2018-12-25 17:06 | NUR ---
PT LTING IN BES ASLLEP BUT AROUSABLE. IN NO APARENT DISTRESS. BLOOD GLUCOSE 122 NO ISULIN COVERAGE NEEDED PER SLIDING SCALE. ALL NEEDS MET AT THIS TIME. CALL LIGHT WITHIN REACH BED IN LOW POSITION . WILL CONTINUE TO MONITOR.
[2018-12-25 17:34] LABS: BASOPHIL % 0.4 % (0-2); PLATELET COUNT 251 x10^3mcL (130-400)
[2018-12-25 17:44] LABS: RED CELL DISTRIBUTION WIDTH 16.5 % (11.5-14.5)
--- NOTE | 2018-12-25 17:45 | NUR ---
PT SITTING UP IN BED WITH FAMILY AT BEDSIDE EATING DINNER TOLERATING DIET WELL. IN NO APPARENT DISTRESS. ALL NEEDS ATTENDED TO WILL CONTINUE TO MONITOR.
--- NOTE | 2018-12-25 19:20 | NUR ---
PT LYING BED WATCHING TV, IV L HAND INFUSING PATENT AND INTACT, IV RFA PATENT AND INTACT NO REDNESS OR EDEMA NOTED, PT ON 2L NC DENIES SOB BREATHING UNLABORED. LISA HANGING TO GRAVITY. SAFETY PRECAUTIONS MAINTAINED ENDORSED ALL CARE TO STEEL HEATER NURSE.
--- NOTE | 2018-12-25 19:51 | NUR ---
RECEIVED PATIENT IN BED RESTING WITH NO SIGN OF ACUTE RESPIRATORY DISTRESS. BREATHING EASY AND NONLABOR ,ON O2 AT 3L VIA NC. TELE#21 SR WITH ELEVATED T WAVE ON MONITOR, DENIES CHESTPAIN. EDEMA NOTED TO BLE,SCD ON. ABDOMEN ROUND, OBESE AND NONTENDER WITH ACTIVE BS. IV TO LH INTACT AND INFUSING WELL. WILL CONTINUE TO MONITOR. CALL LIGHT WITHIN REACH.
--- NOTE | 2018-12-26 00:01 | NUR ---
APPEAR TO BE SLEEPING THIS TIME BREATHING EASY AND NONLABOR ON O2 AT 3L VIA NC. WILL CONTINUE TO MONITOR.
[2018-12-26 04:38] VITALS: BP 194/93
--- NOTE | 2018-12-26 04:40 | NUR ---
BP-194/93 APRESOLINE 50MG PO GIVEN PRESCRIBED. WILL CONTINUE TO MONITOR.
--- NOTE | 2018-12-26 05:10 | NUR ---
CHECKED AT INTERVALS FOR NEEDS AND SAFETY. HAD BM X1 IN LARGE AMOUNT. ALL NEEDS ATTENDED.
--- NOTE | 2018-12-26 05:54 | NUR ---
BP-194/93 APRESOLINE 50MG PO GIVEN PRESCRIBED. PATIENT ASSYMPTOMATIC NO COMPLAINS MADE AT THIS TIME. WILL CONTINUE TO MONITOR.
[2018-12-26 06:43] LABS: CALCIUM 7.5 mg/dL (8.5-10.1); CARBON DIOXIDE 29.3 mmol/L (21-32); CREATININE SERUM 3.4 mg/dL (0.7-1.3)
[2018-12-26 06:49] LABS: BASOPHIL % 0.6 % (0-2); PLATELET COUNT 261 x10^3mcL (130-400)
--- NOTE | 2018-12-26 07:40 | NUR ---
RECEIVED PT IN BED. ASSESSED AND DOCUMENTED. DENIES PAIN THIS TIME. SAFTEY PRECAUTIONS ARE IN PLACE. WILL MONITOR. STABLE.
[2018-12-26 08:51] VITALS: BP 123/66
--- NOTE | 2018-12-26 12:00 | NUR ---
OPERATIONS LIEUTENANT FRANNY AWARE ABOUT CHEST XRAY RESULT. ALSO AWARE ABOUT BUN/CREAT=76/3.4 AND CBC RESULT. NO NEW ORDER RECEIVED THIS TIME.
--- NOTE | 2018-12-26 12:10 | NUR ---
PHARMACIST CALLED AND INFORMED THAT HE IS DISCONTINUING THE ALBUMIN IV BECAUSE PT HAS BEEN IN ALBUMIN SINCE 12/23 AND PT RECEIVED TOTAL 10 DOSE. INFORMED FRANNY 3RD GRADE TEACHER ABOUT THAT, SHE SAID INFORME WHEN HE COME. CHARGE NURSE AWARE. PT EATING WELL NOW.
[2018-12-26 12:26] VITALS: BP 152/75
--- NOTE | 2018-12-26 14:30 | NUR ---
INFORMED ABOUT PMARMACIST DISCONTINUED ALBUMIN, HE IS AWARE ABOUT ALBUMIN LEVEL 2.3. HE SAID HE WILL CHECK. ALSO HE IS AWARE ABOUT BUN/CREAT=76/3.4. NO NEW ORDER RECEIVED THIS TIME.
--- NOTE | 2018-12-26 15:00 | NUR ---
PT RESTING IN BED COMFORTABLY. DENIES ANY PAIN. STABLE.
[2018-12-26 17:09] VITALS: BP 191/99
--- NOTE | 2018-12-26 18:05 | NUR ---
PT BP IS 191/99. HYDRALAZINE PO AND LASIX PO GIVEN ORDERED AND WILL RECHECK PT BP. AND MONA BLANTON AWARE ABOUT PT EARLY AM BP WAS 194/93.
[2018-12-26 19:05] VITALS: BP 177/95
--- NOTE | 2018-12-26 19:05 | NUR ---
PT RESTING IN BED COMFORTABLY. STABLE. BP NOW 177/95 AFTER HYDRALAZINE AND LASIX PO. ENDORSED TO ASSISTANT PLANT CONTROLLER FOR MONITOR BP AND GAVE COMPLETE REPORT. ASYMPTAMATIC.
--- NOTE | 2018-12-26 19:25 | NUR ---
RECEIVED PATIENT IN BED AWAKE, ALERT AND ORIENTED WITH NO SIGN OF ACUTE DISTRESS. BREATHING EASY AND NONLABOR SATTING AT 98% RA. TELE#21 NSR WITH ELEVATED T WAVE ON MONITOR, DENIES CHEST DISCOMFORT. ABDOMEN ROUND AND NONTENDER WITH ACTIVE BS. ABDOMINAL INCISION WITH PEPITO AND CAIZE DRESSING CDI. IV TO LH INTACT AND INFUSING WELL. WILL CONTINUE TO MONITOR. CALL LIGHT WITHIN REACH.
[2018-12-26 20:29] VITALS: BP 158/82
--- NOTE | 2018-12-27 01:34 | NUR ---
APPEAR TO BE SLEEPING THIS TIME BREATHING EASY AND NONLABOR ON CONTINOUS O2 AT 3L VIA NC. WILL CONTINUE TO MONITOR.
--- NOTE | 2018-12-27 05:07 | NUR ---
SLEPT FAIRLY, CHECKED AT INTERVALS FOR NEEDS AND COMFORT. LISA CATH CARE GIVEN. ALL NEEDS ATTENDED.
[2018-12-27 05:24] VITALS: BP 186/90
--- NOTE | 2018-12-27 05:34 | NUR ---
BLOOD PRESSURE 186/90, APRESOLINE 75MG PO GIVEN. WILL ENDORSE CONTINOUS CARE TO AM SHIFT,
[2018-12-27 07:05] LABS: BASOPHIL % 0.6 % (0-2); PLATELET COUNT 251 x10^3mcL (130-400); RED CELL DISTRIBUTION WIDTH 16.4 % (11.5-14.5)
--- NOTE | 2018-12-27 07:25 | NUR ---
RECEIVED PT FROM FOREIGN AGENT. PT AWAKE, ALERT A/OX4. PT DENIES HEADACHE. PT ON TELE 21, DENIES CHEST PAIN. PT ON 3LNC WITH NO RESP DISTRESS NOTED. IV ACCESS LH/RFA, CDI SALINE LOCKED AT THIS TIME. PERIPHERAL PULSES PALPABLE. ACTIVE BS NOTED. PT DENIES ISSUES WITH ELIMINATION. PT HAS LISA CATH WITH CLEAR, YELLOW URINE DRAINING. PT NOTED TO HAVE ABDOMINAL INCISION WITH PEPITO, OPEN TO AIR. NO DRAINAGE NOTED. PT DENIES ANY PAIN AT THIS TIME. SAFETY MEASURES IN PLACE, BED LOW AND LOCKED. CALL LIGHT WITHIN REACH.
[2018-12-27 07:35] LABS: CALCIUM 7.5 mg/dL (8.5-10.1); CARBON DIOXIDE 30.6 mmol/L (21-32); CREATININE SERUM 3.5 mg/dL (0.7-1.3); POTASSIUM SERUM 3.7 mmol/L (3.5-5.1)
--- NOTE | 2018-12-27 08:20 | NUR ---
DUE MEDICATIONS ADMINISTERED. PT TOLERATED WELL. NO ACUTE DISTRESS OR DISCOMFORT NOTED AT THIS TIME. SAFETY MEASURES MAINTAINED.
[2018-12-27 08:22] VITALS: BP 168/83
--- NOTE | 2018-12-27 09:35 | NUR ---
CALL FROM INDEPENDENT CROP CONSULTANT. PT 02 SAT 84%, UPON ASSESSMENT PT OFF O2 AT THIS TIME. PT PLACED BACK ON 1 1/2L AT THIS TIME. NO S/S OF RESP DISTRESS.
--- NOTE | 2018-12-27 11:17 | NUR ---
PT TAKEN OFF O2 AT THIS TIME FOR TRIAL PER RT. WILL MONITOR.
[2018-12-27 11:44] VITALS: BP 150/82
--- NOTE | 2018-12-27 13:40 | NUR ---
PT O2 SAT 85% SUSTAINING. PT PUT BACK ON OXYGEN 1L AT THIS TIME.
--- NOTE | 2018-12-27 15:49 | NUR ---
PT RESTING AT THIS TIME WITH NO ACUTE DISTRESS OR DISCOMFORT NOTED. CALL LIGHT WITHIN REACH.
[2018-12-27 16:14] VITALS: BP 139/76
--- NOTE | 2018-12-27 18:46 | NUR ---
PT STABLE AT THIS TIME. ALL NEEDS TENDED TO THROUGHOUT SHIFT. WILL CONTINUE TO MONITOR AND ENDORSE CARE TO CANDY CATCHER. SAFETY MAINTAINED.
[2018-12-27 19:30] VITALS: BP 158/80
--- NOTE | 2018-12-27 19:30 | NUR ---
RECEIVED REPORT FROM HERNESTO KRAMER. PT IS AAOX4 AND POLISH SPEAKING. V/S ARE BP: 158/80, RR: 18, T: 97.7, 97% 02 SAT ON 1L N/C. PT IS LAYING DOWN IN BED WITH HOB ELEVATED. PT DENIES HEADACHE OR DIZZINESS AT THIS TIME. PT IS ON TELE #21 NSR WITH HR 75. PT DENIES ANY CHEST PAIN OR PRESSURE AT THIS TIME. PT PULSES PALPABLE AND CAP REFILL ARE <3 SEC. PT HAS BILATERAL SCDS IN PLACE. PT LUNG SOUNDS ARE DIMINISED BLL. PT BREATHING IS EVEN AND UNLABORED. PT DENIES ANY SOB OR RESPIRATORY DISTRESS AT THIS TIME. PT ABD IS SOFT AND NONDISTENDED. PT HAS NORMOACTIVE BOWEL SOUNDS X4. PT DENIES ANY N/V AT THIS TIME. LBM- 12/25/18, FORMED. PT HAS LISA CATH IN PLACE DRAINING YELLOW URINE. PT IS ON STRICT I&O OF 800 ML DAILY. PT HAS GENERALIZED WEAKNESS, BUT IS ABLE TO REPOSITION SELF IN BED. PT HAS DISOLORATION TO BLE AND ABD INCISIONS WITH PEPITO THAT IS SCHOOL CHILDCARE ATTENDANT AND WNL. PT IVS ARE PATENT AND WNL. CALL LIGHT WITHIN REACH. BED IN LOWEST POSITION. WILL CONTINUE TO MONITOR.
[2018-12-27 21:14] VITALS: BP 160/81
[2018-12-28] VITALS (7 sets, daily range): BP systolic 136–168; BP diastolic 75–85
--- NOTE | 2018-12-28 02:07 | NUR ---
PT BP WAS 176/68 WITH HR 120. ADMINISTERED HYDRALAZINE 20MG IVP FOR SBP >160. WILL REASSESS BP. WILL CONTINUE TO MONITOR.
--- NOTE | 2018-12-28 02:53 | NUR ---
BP RECHECKED AFTER HYDRALAZINE IVP @ 162/81 MMHG,HR 61.DENIES CHESTPAIN.WILL CONTINUE TO MONITOR.
--- NOTE | 2018-12-28 04:27 | NUR ---
ROUNDED ON PT. PT SLEEPING, BUT EASILY AROUSABLE. BREATHING EVEN AND UNLABORED ON 1L O2 N/C. PT DENIES ANY S/S OF PAIN AT THIS TIME. CALL LIGHT WITHIN REACH. BED IN LOWEST POSITION. SIDE RAILS X2 UP. WILL CONTINUE TO MONITOR.
--- NOTE | 2018-12-28 05:29 | NUR ---
PT SLEPT THROUGHOUT THE NIGHT, BUT WAS EASILY AROUSABLE. PT COMPLIED WITH NURSING CARE THROUGHOUT THE SHIFT. NO SOB OR RESPIRATORY DISTRESS NOTED DURING SHIFT. PT BREATHING EVEN AND UNLABORED ON 1L O2 N/C. PT DENIES ANY CHEST PAIN OR PRESSURE DURING SHIFT. COMFORT AND SAFETY MEASURES MAINTAINED. ALL NEEDS AND CONCERNS ADDRESSED. CALL LIGHT WITHIN REACH. BED IN LOWEST POSITION. WILL ENDORSE CARE TO DAY SHIFT NURSE.
--- NOTE | 2018-12-28 05:57 | NUR ---
REASSESSED BP PRIOR TO ROUTINE BP MED. BP WAS 153/83 WITH HR 69. ADMINISTERED APRESOLINE PO PER ORDERS. WILL CONTINUE TO MONITOR.
[2018-12-28 06:42] LABS: BASOPHIL % 0.9 % (0-2); PLATELET COUNT 242 x10^3mcL (130-400)
--- NOTE | 2018-12-28 07:20 | NUR ---
ENDORSED CARE TO DES KRAMER. ALL QUESTIONS AND CONCERNS ADDRESSED.
--- NOTE | 2018-12-28 07:30 | NUR ---
PT ENDORSE TO ME THIS MORNING, LAYING IN BED RESTING. AA/O X4 BREATHING EVEN AND UNLABORED ON RA, NO ACUTE RESP DISTRESS OR SOB NOTED. TELE 21 SR NOTED, HR 80, DENIES ANY CP OR PRESSURE. BOWEL SOUND ACTIVE IN ALL FOUR QUADS, PER PT PASSING GAS, LAST BM 12/25. FOELY INTACT AND PATENT/ DRAINING YELLOW URINE/ 900ML OUTPUT THIS AM. GEN WEAKNESS AMB WITH WALKER/ KNOWS TO CALL FOR ASSIST. ABD INCISION WITH PEPITO BOOK SEWER INTACT. BLE DISCOLORATION NOTED. IV TO THE RFA INTACT AND PATETN/ REMOVED IV TO THE LH CATHETER TIP INTACT. CALL LIGHT IN REACH. BED IN LOW POSITION. WILL CONTINUE TO MONITOR.
[2018-12-28 07:34] LABS: RED CELL DISTRIBUTION WIDTH 16.3 % (11.5-14.5)
[2018-12-28 07:51] LABS: CALCIUM 7.5 mg/dL (8.5-10.1); CARBON DIOXIDE 30.8 mmol/L (21-32); CREATININE SERUM 3.4 mg/dL (0.7-1.3); POTASSIUM SERUM 3.5 mmol/L (3.5-5.1)
--- NOTE | 2018-12-28 12:00 | NUR ---
PT WAS ON RA AND AMB WITH PHYSICAL THERAPY AND O2 WENT DOWN TO 89% ON AMBULATION. PLACE PT BACK ON 1L NC STATING AT 92-96% REVENUE CYCLE CONSULTANT MADE AWARE. WILL CONTINUE TO MONITOR.
--- NOTE | 2018-12-28 16:00 | NUR ---
PLACE PT BACK ON RA STATING AT 95-96% /TOLERATING WELL. FAMILY AT BEDSIDE. TOLERATE 100 % OF LUNCH. WILL CONTINUE TO MONITOR.
--- NOTE | 2018-12-28 18:00 | NUR ---
TELE CALLED PT SATING AT 89% THEN WENT RIGHT BACK UP TO 96% ON RA. PT IS BREATHING EVEN AND UNLABORED, NO ACUTE RESP DISTRESS NOTED. FAMILY AT BEDSIDE.
--- NOTE | 2018-12-28 18:39 | NUR ---
NO ACUTE CHANGES AT THIS TIME. NO ACUTE RESP DISTRESS OR SOB NOTED. DENIES ANY CP OR PRESSURE. PT IS ASKING FOR MORE ICE, EDUCATED PT HES ON FLUID RESTRICTION, PT AGREED. FMAILY AT BEDSIDE. IV TO THE RFA INTACT AND PATENT/ HEPLOCKED. CALL LIGHT IN REACH. WILL ENDORSE TO INCOMING RN.
--- NOTE | 2018-12-28 19:20 | NUR ---
PT RECEIVED A/O X4, BRUNEIAN SPEAKING, ABLE TO MAKE NEEDS KNOWN. TELE #21, HR-70, PT DENIES ANY CP/PRESSURE. PULSES PALPABLE, NO EDEMA PRESENT. BREATHING IS EVEN AND UNLABORED ON RA, PT DENIES SOB, NO RESP DISTRESS NOTED, CONT PULSES OX-97%. ABD SOFT AND ROUND, PT DENIES N/V. LISA CATH DRAINING TO GRAVITY, YELLOW URINE NOTED. PT ON STRICT I&O WITH 800 ML FLUID RESTRCITION. GENEALIZED WEAKNESS. DARK DISCOLORATION NOTED TO BLE. ABD INCISIONS WITH SEVEN PEPITO INTACT, BUBBA, SITE FREE FROM REDNESS OR SWELLING. PT DENIES HAVING ANY PAIN AT THIS TIME. SL TO RFA, PATENT AND INTACT, SITE WNL. NO ACUTE DISTRESS OBSERVED. BED IN LOWEST SETTING, SIDE RAILS UP X2, CALL LIGHT WITHIN REACH. WILL CONT TO MONITOR.
--- NOTE | 2018-12-29 04:20 | NUR ---
PER TANK HOUSE OPERATOR, PT'S 02 SAT-87% AND SUSTAINING IN THE 80's. PT ASSESSED, BREATHING IS EVEN AND UNLABORED, PT DENIES HAVING SOB, NO RESP DISTRESS NOTED. PT PLACED ON 1L NC, 02 SAT-94%. WILL WEAN PT OFF 02 TOLERATED. WILL CONT TO MONITOR.
[2018-12-29 06:13] VITALS: BP 169/86
[2018-12-29 06:31] LABS: BASOPHIL % 0.6 % (0-2); PLATELET COUNT 248 x10^3mcL (130-400)
--- NOTE | 2018-12-29 06:34 | NUR ---
PT SLEPT AT INTERVALS THROUGHOUT THE EVENING. PT WEAKED OFF 02 AND PLACED ON RA, 02 SAT-93%, BREATHING IS EVEN AND UNLABORED, PT DENIES ANY SOB, NO RESP DISTRESS NOTED. PT DENIES HAVING ANY PAIN AT THIS TIME. NO ACUTE CHANGES ENCOUNTERED DURING SHIFT. ALL NEEDS MET AND ANTICIPATED. SL TO RFA, INTACT. CALL LIGHT WITHIN REACH. WILL ENDORSE CARE TO AM NURSE.
[2018-12-29 06:43] LABS: CALCIUM 7.7 mg/dL (8.5-10.1); CARBON DIOXIDE 33.2 mmol/L (21-32); CREATININE SERUM 3.3 mg/dL (0.7-1.3); POTASSIUM SERUM 3.6 mmol/L (3.5-5.1)
[2018-12-29 07:00] VITALS: BP 159/86
--- NOTE | 2018-12-29 07:30 | NUR ---
RECEIVED PT AAOX4. RESP EVEN, SHALLOW AND UNLABORED. LUNG SOUNDS DIMINISHED BILATAERALLY. PT ON R/A WITH CONTINUOUS PULSE OX IN PLACE. TELE [address] READING NSR. IV CATH N/S LOCKED TO RFA. SITE WNL. NO S/S OF INFECTION NOTED. LISA CATH [address], PATENT, DRAINING YELLOW CLEAR URINE TO GRAVITY. STAT LOCK TO R THIGH. PT ON 800ML FLUID RESTRICTION. PT DENIES PAIN AT THIS TIME. CALL LIGHT WITHIN REACH. BED IN LOWEST POSITION.
--- NOTE | 2018-12-29 07:40 | NUR ---
PT IN NO ACUTE DISTRESS. CONT OF CARE ENDORSED TO AM NURSE. ALL QUESTIONS AND CONCERNS ADDRESSED.
[2018-12-29 08:16] VITALS: BP 161/80
[2018-12-29 08:25] LABS: RED CELL DISTRIBUTION WIDTH 15.9 % (11.5-14.5)
--- NOTE | 2018-12-29 08:44 | NUR ---
SCHEDULED MEDS GIVEN AND TOLERATED WELL. B/P 161/80 (107), 71. RESP EVEN AND UNLABORED. DENIES PAIN. CALL LIGHT WITHIN REACH. PT TAUGHT TO TURN AND REPOSTION IN BED FREQUENTLY AND Q 2 HOURS. PT VERBALIZED UNDERSTANDING.
--- NOTE | 2018-12-29 12:30 | NUR ---
BLOOD SUGAR 132, NO INSULIN INDICATED PER REG INSULIN SLIDING SCALE. SCHEDULED MED GIVEN AND TOLERATED WELL. PT DENIES PAIN. CALL LIGHT WITHIN REACH.
--- NOTE | 2018-12-29 12:36 | NUR ---
RECEIVED ORDER FROM DR. HEARN, D/C LISA CATH IT IS NO LONGER INDICATED. ORDER NOTED. WILL INFORM PT.
[2018-12-29 12:45] VITALS: BP 154/79
--- NOTE | 2018-12-29 13:12 | NUR ---
16 FR LISA CATH REMOVED. 10ML NS REMOVED FROM BALLOON. 200ML CLEAR YELLOW URINE REMOVED FROM DRAINAGE BAG. PT WILL BE MONITORED FOR BLADDER RETENTION. PT EDUCATED TO VERBALIZED IF HE HAS DIFFICULTIES URINATING, BLADDER PAIN OR DISTENTION. PT VERBAIZED UNDERSTANDING.
--- NOTE | 2018-12-29 14:25 | NUR ---
PT IS RESTING IN BED. DENIES PAIN AND DISCOMFORT. RESP EVEN AND UNLABORED. NO DISTRESS NOTED. CALL LIGHT WITHIN REACH.
--- NOTE | 2018-12-29 14:31 | NUR ---
RECEIVED PT AAOX4. RESP EVEN, SHALLOW AND UNLABORED. LUNG SOUNDS DIMINISHED BILATAERALLY. PT ON R/A WITH CONTINUOUS PULSE OX IN PLACE. TELE [address] READING NSR. IV CATH N/S LOCKED TO RFA. SITE WNL. NO S/S OF INFECTION NOTED. LISA CATH [address], PATENT, DRAINNG YELLOW CLEAR URINE TO GRAVITY. STAT LOCK TO R THIGH. PT ON 800ML FLUID RESTRICTION. PT DENIES PAIN AT THIS TIME. CALL LIGHT WITHIN REACH. BED IN LOWEST POSTION.
--- NOTE | 2018-12-29 17:12 | NUR ---
BLOOD SUGAR 153, 3 UNITS INSULIN GIVEN PER RISS. SCHEDULED MEDS GIVEN AND TOLERATED WELL. PT DENIES PAIN. CALL LIGHT WITHIN REACH.
[2018-12-29 17:29] VITALS: BP 146/76
--- NOTE | 2018-12-29 18:31 | NUR ---
PT IS AAOX4. RESP EVEN AND UNLABORED. PT TOLERATED R/A THROUGH OUT THE DAY. TELE [address] READING NSR WITH FIRST DEGREE AV BLOCK. IV CATH TO RFA IN PLACE, N/S LOCKED. SITE WNL. PT DENIES PAIN AND DISCOMFORT. CALL LIGHT WITHIN REACH.
--- NOTE | 2018-12-29 18:35 | NUR ---
PT IS AAOX4. RESP EVEN AND UNLABORED. PT TOLERATED R/A THROUGH OUT THE DAY. TELE [address] READING NSR. IV CATH TO RFA IN PLACE, N/S LOCKED. SITE WNL. PT DENIES PAIN AND DISCOMFORT. CALL LIGHT WITHIN REACH. WILL ENDORSE ALL CARE TO NOC RN.
--- NOTE | 2018-12-29 19:10 | NUR ---
PT RECEIVED A/O X4, CAMEROONIAN SPEAKING, ABLE TO MAKE NEEDS KNOWN. TELE #21, PT DENIES ANY CP/PRESSURE. PULSES PALPABLE, NO EDEMA PRESENT. BREATHING IS EVEN AND UNLABORED ON RA, PT DENIES SOB, NO RESP DISTRESS NOTED, CONT PULSES OX-93%. ABD SOFT AND ROUND, PT DENIES N/V. VOIDS FREELY, URINAL AT BEDSIDE. PT ON STRICT I&O WITH 800 ML FLUID RESTRCITION. GENEALIZED WEAKNESS. DARK DISCOLORATION NOTED TO BLE. ABD INCISIONS WITH SEVEN PEPITO INTACT, ROR ENGINEER, SITE FREE FROM REDNESS OR SWELLING. PT DENIES HAVING ANY PAIN AT THIS TIME. SL TO RFA, PATENT AND INTACT, SITE WNL. NO ACUTE DISTRESS OBSERVED. BED IN LOWEST SETTING, SIDE RAILS UP X2, CALL LIGHT WITHIN REACH. WILL CONT TO MONITOR.
[2018-12-29 20:38] VITALS: BP 137/73
[2018-12-30 05:47] VITALS: BP 162/79
--- NOTE | 2018-12-30 06:37 | NUR ---
PT SLEPT AT INTERVALS THROUGHOUT THE EVENING. BREATHING IS EVEN AND UNLABORED ON RA, PT TOLERATED RA FAIRLY, PT DENIES ANY SOB, NO RESP DISTRESS NOTED. PT DENIES HAVING ANY PAIN AT THIS TIME. NO ACUTE CHANGES ENCOUNTERED DURING SHIFT. ALL NEEDS MET AND ANTICIPATED. SL TO RFA, INTACT. CALL LIGHT WITHIN REACH. WILL ENDORSE CARE TO AM NURSE.
[2018-12-30 07:06] LABS: BASOPHIL % 0.6 % (0-2); PLATELET COUNT 254 x10^3mcL (130-400)
[2018-12-30 07:18] LABS: CALCIUM 8.1 mg/dL (8.5-10.1); CARBON DIOXIDE 30.1 mmol/L (21-32); CREATININE SERUM 3.1 mg/dL (0.7-1.3); POTASSIUM SERUM 3.6 mmol/L (3.5-5.1)
--- NOTE | 2018-12-30 07:26 | NUR ---
PT IN NO ACUTE DISTRESS. CONT OF CARE ENDORSED TO NAIF KRAMER. ALL QUESTIONS AND CONCERNS ADDRESSED.
--- NOTE | 2018-12-30 08:00 | NUR ---
SHIFT ASSESSMENT DONE. PATIENT A/A/OX3. TELE#21; SR; HR = 78. DENIED CHEST PAIN. NO SOB ON RA. BREATHING SOUND DIMINISHED SARA BASES. O2 SAT 93% ON RA. LISA CATH D/C'D YESTERDAY. VOISD FREELY VIA URINAL. ABD SOFT. ABD INCISION TO RUQ ABD 5 CM LONG AND W/ 7 PEPITO, INTACT. RDRMA SUBSIDED. IVHL'D TO RFA. DENIED PAIN. CALL LIGHT IN REACH.
[2018-12-30 09:25] VITALS: BP 135/49
[2018-12-30 09:27] VITALS: BP 152/79
[2018-12-30] MEDS ORDERED: MIN2.5 PO (11:07)
[2018-12-30] MEDS ORDERED: HYDRALAZINE HCL25 MG PO (11:07)
[2018-12-30] MEDS ORDERED: LASIX80 MG PO (11:07)
[2018-12-30] MEDS ORDERED: NIFEDIPINE60 MG PO (11:08)
[2018-12-30] MEDS ORDERED: CARVEDILOL25 M1 PO (11:09)
[2018-12-30 12:36] VITALS: BP 143/73
[2018-12-30 13:18] VITALS: BP 111/63; BP 143/73
[2018-12-30 16:48] VITALS: BP 111/63
--- NOTE | 2018-12-30 18:15 | NUR ---
DR. ROWLAND SAW PATIENT. OK TO D/C TO HOME PER ORDER. INSTRUCTION GIVEN TO PATIENT AND HIS FAMILY MEMBERS. IV D/C'D. CONDITION STABLE.
== END 2018-12-30 18:15 | disposition home or self-care (01) | DRG 812 ==
LOC: ED 11:26 → IC 13:37 → DU 13:37 → EDBEDREQ 13:38 → IC 15:32 → DU 12-11 14:35
PROVIDERS: Family Medicine; Internal Medicine; Internal Medicine Nephrology; Specialist; ADMIT Internal Medicine
PROC: 0W993ZZ Drainage of Right Pleural Cavity, Percutaneous Approach (ICD-10-PCS; principal; 2018-12-16)
PROC: 0W9B3ZZ Drainage of Left Pleural Cavity, Percutaneous Approach (ICD-10-PCS; 2018-12-19)
PROC: 0W993ZZ Drainage of Right Pleural Cavity, Percutaneous Approach (ICD-10-PCS; 2018-12-19)
PROC: 0WBF0ZX Excision of Abdominal Wall, Open Approach, Diagnostic (ICD-10-PCS; 2018-12-23)
PROC: 30233N1 Transfusion of Nonautologous Red Blood Cells into Peripheral Vein, Percutaneous Approach (ICD-10-PCS; 2018-12-25)
DX: T50.2X1A Poisoning by carbonic-anhydrase inhibitors, benzothiadiazides and other diuretics, accidental (unintentional), initial encounter (principal); I50.33 Acute on chronic diastolic (congestive) heart failure; J18.1 Lobar pneumonia, unspecified organism; J90 Pleural effusion, not elsewhere classified; N17.9 Acute kidney failure, unspecified; E11.21 Type 2 diabetes mellitus with diabetic nephropathy; N18.3 Chronic kidney disease, stage 3 (moderate); E85.9 Amyloidosis, unspecified; I13.0 Hypertensive heart and chronic kidney disease with heart failure and stage 1 through stage 4 chronic kidney disease, or unspecified chronic kidney disease; I42.8 Other cardiomyopathies; E11.22 Type 2 diabetes mellitus with diabetic chronic kidney disease; I16.0 Hypertensive urgency; I34.0 Nonrheumatic mitral (valve) insufficiency; E78.5 Hyperlipidemia, unspecified; Z68.32 Body mass index [BMI] 32.0-32.9, adult; Z91.19 Patient's noncompliance with other medical treatment and regimen; Z79.84 Long term (current) use of oral hypoglycemic drugs; Y92.009 Unspecified place in unspecified non-institutional (private) residence as the place of occurrence of the external cause
CPT/HCPCS: 32555; 82962; 83880; 84156; 84166; 86335; 88344; 94150; 97110-GP; 97116-GP; 97530-GP; C1729; G0378; G0480; J0360; J0690; J0696; J1815; J1940; J2001; J2250; J2543; J2704; J3010; J3490; J7030; J7040; J7050; J7120; J7620; P9016; P9047; Q0092; Q0163

== ENCOUNTER 2019-01-04 23:49 | Inpatient (IN) | payer MEDICAID ==
[~2019-01-04] VITALS: Ht 177.8 cm; Wt 85.1 kg
[~2019-01-04 23:49] MED LIST: CARVEDILOL25 M1 PO; HYDRALAZINE HCL25 MG PO; LASIX40 MG PO; LASIX80 MG PO; METOLAZONE5 M1 PO; MIN2.5 PO; NIFEDIPINE60 MG PO; NOR10 PO; Z5 PO; ZESTRIL40 MG PO
--- NOTE | 2019-01-05 | NUR ---
PT PRESENTED TO ED FOR SOB X 10 MIN DRAPERY EXAMINER. PER PT FAMILY "HE HAS HAD FLUID IN HIS CHEST AND I GUESS HE WAS SAYING HE COULDNT BREATHE AND COULDNT WALK. HE WAS SITTING ON THE FLOOR AND THEN HE COULDNT GET UP". PT NOTED LABORED BREATHING BUT AWAKE AND ALERT, ABLE TO FOLLOW COMMANDS AND SPEAK IN 2-3 WORD SENTENCES. WHEEZES NOTED TO LEFT UPPER LOBE AND CRACKLES NOTED TO RIGHT UPPER LOBE, DIMINISHED TO RIGHT MID AND LOWER LOBES. PT PLACED ON 15L BVM[address] DR QUEEN AT BEDSIDE. CM AND O2 MONITOR IN PLACE. WILL CONTINUE TO MONITOR.
--- NOTE | 2019-01-05 00:31 | NUR ---
XRAY AT BEDSIDE
[2019-01-05 00:42] LABS: BASOPHIL % 0.4 % (0-2); PLATELET COUNT 242 x10^3mcL (130-400)
[2019-01-05 00:44] LABS: RED CELL DISTRIBUTION WIDTH 15.9 % (11.5-14.5)
--- NOTE | 2019-01-05 01:00 | NUR ---
RT AT BEDSIDE.
[2019-01-05 01:01] LABS: ALBUMIN 2.4 g/dL (3.4-5.0); BILIRUBIN TOTAL 0.16 mg/dL (0.20-1.00); CALCIUM 7.9 mg/dL (8.5-10.1); CARBON DIOXIDE 30.4 mmol/L (21-32); CREATININE SERUM 3.8 mg/dL (0.7-1.3); POTASSIUM SERUM 4.1 mmol/L (3.5-5.1); TOTAL PROTEIN, SERUM 6.3 g/dL (6.4-8.2)
--- NOTE | 2019-01-05 01:37 | NUR ---
PT PLACED ON BIPAP BY RT AT THIS TIME.;
--- NOTE | 2019-01-05 02:32 | NUR ---
SISTER VASILE COSTA CONTACT NUMBER [phone]
[2019-01-05 03:24] VITALS: BP 168/87
--- NOTE | 2019-01-05 03:57 | NUR ---
PT SLEEPING BUT EASILY AROUSABLE. BREATHING EVEN AND UNLABORED WHILE ON BIPAP. CM AND [address] WILL CONTINUE TO MONITOR.
[2019-01-05 04:12] LABS: MAGNESIUM 2.2 mg/dL (1.8-2.4); PHOSPHOROUS 6.6 mg/dL (2.5-4.9)
[2019-01-05 04:17] LABS: CHOLESTEROL/HDL RATIO 5.7
--- NOTE | 2019-01-05 05:14 | NUR ---
LAB AT BEDSIDE.
[2019-01-05 05:29] LABS: BASOPHIL % 0.4 % (0-2); PLATELET COUNT 237 x10^3mcL (130-400)
[2019-01-05 05:32] LABS: RED CELL DISTRIBUTION WIDTH 16.2 % (11.5-14.5)
[2019-01-05 05:34] LABS: CALCIUM 7.6 mg/dL (8.5-10.1); CREATININE SERUM 3.8 mg/dL (0.7-1.3); MAGNESIUM 2.2 mg/dL (1.8-2.4); PHOSPHOROUS 6.4 mg/dL (2.5-4.9); POTASSIUM SERUM 3.6 mmol/L (3.5-5.1)
--- NOTE | 2019-01-05 06:20 | NUR ---
OKAY TO GIVE PT 10 CC WATER TO DRINK PER DR PEREZ AT BEDSIDE
--- NOTE | 2019-01-05 07:38 | NUR ---
REPORT CALLED TO DARLINE KRAMER IN ICU
--- NOTE | 2019-01-05 07:38 | NUR ---
CALLED RT FOR TRANSPORT
--- NOTE | 2019-01-05 07:40 | NUR ---
RECEIVED PT FROM ED BY BRYAN WITH ED NURSE AT BEDSIDE. PT IS MAINLY TELUGU SPEAKING. PT IS PUT ON BIPAP WITH SETTING I:E 14/8, FIO2 90%, RR 10. O2 SAT AROUND 95%. PT'S VS: TEMP 98.2, O2 SAT 98% VIA BIPAP, RR 15, BP 166/91. HEALING ABRASION WITH SCAB ON L VILLEDA, RLQ HEALED SCAR FROM POST BIOPSY PER PT'S REPORT. PT REFUSED TO REMOVE PANTS. WILL CONTINUE TO MONITOR.
--- NOTE | 2019-01-05 07:53 | NUR ---
PT TRANSPORTED TO ICU BED 3 AT THIS TIME IN [facility]. PT TRANSFERED VIA GURNEY ACCOMPANIED BY MYSELF RN, ART EMT, AND NAZARIO PATTON. NAZARIO ALEMAN PLACED PT ON NONREBREATHER MASK FOR TRANSPORT AT 15L. PT BREATHING EVEN AND UNLABORED, SPEAKING FULL CLEAR SENTENCES. DARLINE RN AT BEDSIDE TO ASSUME CARE OF PT.
[2019-01-05 08:40] VITALS: BP 167/91
[2019-01-05 10:23] LABS: microscopic required? YES; urine erythrocyte 1+ (NEGATIVE)
--- NOTE | 2019-01-05 11:30 | NUR ---
RT SWITCH PT FROM BIPAP TO OXYMIZER AT 9L FOR MEAL TIME, O2 SAT AROUND 90%. PT DENIED SOB.
[2019-01-05 12:33] VITALS: BP 102/63
--- NOTE | 2019-01-05 13:36 | NUR ---
PER US TECH CALL AND CONFIRMATION, PT IS SCHEDULED FOR THEROCENTESIS ON SUNDAY PER RADIOLOGIST. HOLD BLOOD THINNER.
--- NOTE | 2019-01-05 14:30 | NUR ---
PT O2 DESATING AFTER USING BSC. PT IS PUT BACK ON BIPAP WITH FIO2 60%.
[2019-01-05 16:33] VITALS: BP 92/53
--- NOTE | 2019-01-05 17:51 | NUR ---
PT'S SISTER AT BED SIDE. PT TOLERATE WELL ON RENAL DIET. PT IS BACK ON BIPAP FROM OXYMIZER, FIO2 65%, O2 SAT 91% AT THIS TIME. NO URINE OUTPUT SINCE MORNING PT GOT UNIT. PT HAD BM X 1, SMALL AMOUNT UTINE PER PT'S STATEMENT. PT IS SCHEDULED FOR THORACENTESIS TOMORROW. PT'S HR AT 50s, BP 102/65. WILL ENOORSE PT'S CARE TO COMING NURSE.
--- NOTE | 2019-01-05 19:07 | NUR ---
RECEIVED REPORT FROM DARLINE KRAMER. WILL RESUME CARE.
[2019-01-05 19:15] VITALS: BP 96/61
--- NOTE | 2019-01-05 21:03 | NUR ---
RT LANGE AT BEDSIDE. PT TAKEN OFF BIPAP AND PUT ON HI FLOW PER DR. GOETZ ORDER. HI FLOW SETTING LPM 25, FIO2 100%.
--- NOTE | 2019-01-05 23:10 | NUR ---
RT LANGE AT BEDSIDE. HI FLOW SETTINGS OF FIO2 DECREASED TO 90% AND FLOW INCREASED FROM 25 TO 45.
[2019-01-05 23:47] VITALS: BP 131/71
[2019-01-06 03:02] VITALS: BP 138/77
--- NOTE | 2019-01-06 04:25 | NUR ---
PT CLEANED. NEW GOWN AND LINENS PROVIDED. TOTAL URINE OUTPUT DURING SHIFT WAS 400CC OF YELLOW URINE. NO BM DURING SHIFT.
[2019-01-06 05:08] LABS: BASOPHIL % 0.1 % (0-2); PLATELET COUNT 220 x10^3mcL (130-400)
[2019-01-06 05:16] LABS: RED CELL DISTRIBUTION WIDTH 16.6 % (11.5-14.5)
[2019-01-06 05:20] LABS: CALCIUM 7.5 mg/dL (8.5-10.1); CARBON DIOXIDE 30.6 mmol/L (21-32); MAGNESIUM 2.2 mg/dL (1.8-2.4); PHOSPHOROUS 6.2 mg/dL (2.5-4.9); POTASSIUM SERUM 3.5 mmol/L (3.5-5.1)
--- NOTE | 2019-01-06 06:20 | NUR ---
DR. NATH AT BEDSIDE ASSESSING PT. UPDATES PROVIDED.
[2019-01-06 07:00] VITALS: BP 134/72
--- NOTE | 2019-01-06 07:00 | NUR ---
RECEIVED REPORT FROM JULIA KRAMER. ALL QUESTIONS ANSWERED AND ADDRESSED. WILL ASSUME CARE OF PT
--- NOTE | 2019-01-06 07:02 | NUR ---
GAVE REPORT TO AIDEE KRAMER. ALL QUESTIONS AND CONCERNS ADDRESSED.
--- NOTE | 2019-01-06 09:26 | NUR ---
PER DR. QUICK, PT STABLE TO TRANSFER TO [facility] ONCE CLEARED BY AVIATION SAFETY EQUIPMENT TECHNICIAN.
--- NOTE | 2019-01-06 09:26 | NUR ---
DR. QUICK AND RESIDENTS AT BEDSIDE ASSESSING PT. PT TO HAVE PT EVAL, 1 UNIT OF BLOOD TO BE ADMINISTERED AND CONSENT TO BE SIGNED, AND TO FOLLOW UP WITH RADIOLOGIST TO CONFIRM IF PT WILL HAVE THORACENTESIS OR NOT. WILL CARRY OUT ORDERS ONCE RECEIVED
--- NOTE | 2019-01-06 10:07 | NUR ---
RADIOLOGY CALLED AND SAID THAT THE PT DID NOT NEED TO HAVE AN IR DONE. DR. NATH NOTIFIED.
--- NOTE | 2019-01-06 10:35 | NUR ---
DR. ROWLAND AT BEDSIDE ASSESSING PT. DR. ROWLAND STATES THAT PT NEEDS TO HAVE HD AND TO CONSULT FOR DR. BALDWIN TO PUT IN A TUNNELED HD CATHETER FOR TOMORROW. ORDERS FOR LASIX GTT @ 5 MG/HR. WILL CARRY OUT ORDERS ONCE RECEIVED.
[2019-01-06 11:16] VITALS: BP 168/81
--- NOTE | 2019-01-06 13:17 | NUR ---
DR. STARR AT BEDSIDE TO SEE AND ASSESS PT, NO FURTHER ORDERS AT THIS TIME.
--- NOTE | 2019-01-06 13:45 | NUR ---
RECEIVED BLOOD FROM BLOOD BANK. BLOOD VERIFIED WITH 2 RN'S. PRE VITALS TAKEN, SEE BLOOD BANK SHEET FOR MORE DETAILS. 1 UNIT OF PRBC'S INITIATED AT THIS TIME. WILL CONT TO MONITOR FOR ADVERSE REACTIONS IN 15 MIN.
--- NOTE | 2019-01-06 13:56 | NUR ---
PHYSICAL THERAPY AT BEDSIDE
--- NOTE | 2019-01-06 14:00 | NUR ---
15 MIN POST BLOOD TRANSFUSION ASSESSMENT COMPLETED. NO ADVERSE REACTIONS AT THIS TIME. SEE BLOOD BANK SHEET FOR MORE DETAILS. WILL CONT TO MONITOR.
[2019-01-06 15:15] VITALS: BP 161/82
--- NOTE | 2019-01-06 15:33 | NUR ---
PT NOT CLEARED TO TRANSFER TO [facility] AT THIS TIME PER DR. DOS SANTOS.
--- NOTE | 2019-01-06 15:35 | NUR ---
DR. DOS SANTOS AT BEDSIDE ASSESSING PT. NURSING UPDATES. NO NEW ORDERS AT THIS TIME.
--- NOTE | 2019-01-06 16:51 | NUR ---
1 UNIT OF PRBC'S COMPLETED AT THIS TIME WITH NO ADVERSE REACTIONS. SEE BLOOD BANK SHEET IN CHART FOR MORE DETAILS.
--- NOTE | 2019-01-06 16:57 | NUR ---
DR. NATH MADE AWARE BLOOD COMPLETED AND NEED TO REPEAT HBG/HCT. AWAITING FURTHER ORDERS
--- NOTE | 2019-01-06 17:00 | NUR ---
X-RAY TEAM AT BEDSIDE TO TAKE PT TO CT. RT AT BEDSIDE TO SWITCH PT FROM HIGH FLOW TO NONREBREATHER MASK. RT STATES TO LEAVE PT ON NONREBREATHER FOR 15 MINUTES TO SEE IF PT IS ABLE TO TOLERATE. XRAY TEAM IN AGREEMENT. WILL CONT TO MONITOR.
--- NOTE | 2019-01-06 17:30 | NUR ---
PT DESATTING IN THE 85-88%. RT CALLED AT THIS TIME.
--- NOTE | 2019-01-06 17:35 | NUR ---
RT AT BEDSIDE TO ASSESS PT. PT SWITCHED BACK TO HIGH-FLOW AT THIS TIME.
--- NOTE | 2019-01-06 17:45 | NUR ---
CT CALLED AT THIS TIME FOR UPDATES ON PT. STATES TO TRY TO GET PT TO CT AFTER SHIFT CHANGED. WILL ENDORSE TO BOOK MENDER.
--- NOTE | 2019-01-06 18:15 | NUR ---
PT SITTING UP IN BED EATING DINNER AT THIS TIME. PT REMAINS ON HIGH FLOW OXYGEN @ 40LPM, 95% FIO2. BREATHING E/U. SYMMETRICAL CHEST WALL EXPANSION. IN NO APPARENT DISTRESS AT THIS TIME. NSR ON MANAGER COUNCIL. NO S/S OF CP AT THIS TIME. PIV TO RFA INTACT, PORT PATENT, DRESSING CDI. BED IN LOWEST POSITION, HOB HIGH-FOWLERS, X3 SIDE RAILS UP, CALL LIGHT WITHIN REACH. FAMILY AT BEDSIDE.
[2019-01-06 18:30] LABS: BASOPHIL % 0.4 % (0-2); PLATELET COUNT 232 x10^3mcL (130-400)
--- NOTE | 2019-01-06 19:10 | NUR ---
RECIEVED REPORT FROM AIDEE KRAMER. ASSUMING ALL CARE
[2019-01-06 19:25] VITALS: BP 145/75
--- NOTE | 2019-01-06 19:25 | NUR ---
RECEIVED PT LAYING IN BED. PT IS A/OX4. BREATHING IS E/U ON HIGH FLOW @ 45 LPM WITH 95% FIO2. LUNGS SOUND CLEAR TO BUL AND DIMIN TO BLL. SYMMETRICAL CHEST EXPANSION NOTED. S1/S2 HEART SOUNDS AUSCULTATED. CHEST WALL EQUAL AND SYMMETRICAL. HR 73, NIBP 145/75 MAP 97. PALPABLE PULSES X4 EXTREMITIES. SKIN IS WARM AND DRY. TRACE EDEMA NOTED TO BLE. CAP REFILL < [address] IV IN PL[address] WITH NO S/S OF INFILTRATION NOTED. LASIX GTT INFUSING @ 3 ML/HR. PT IS ON RENAL DIET. ABD IS SOFT, ROUND, NONTENDER TO PALPATION. BOWEL SOUNDS ACTIVE X4 QUADRANTS. PT VOIDS FREELY VIA URINAL. NO SCROTAL EDEMA/PENILE DISCHARGE NOTED. SCAB NOTED TO L VILLEDA. RLQ HEALED SCAR NOTED TO ABD, HEEL CURVER. DISCOLORATION NOTED TO BLE. PT ABLE TO REPOSITION SELF INDEPENDENTLY. PT IS CALM AT THIS TIME. BED IN LOW POSITION. CALL LIGHT IN REACH. WILL CONT TO MONITOR.
--- NOTE | 2019-01-06 22:40 | NUR ---
PT PLACED ON NON REBREATHER AT THIS @ 15 LPM. PT'S O2 SATURATION 94%. PT DENIES ANY SOB. WILL CONT TO MONITOR
[2019-01-06 23:00] VITALS: BP 123/67
[2019-01-07] VITALS (7 sets, daily range): BP systolic 88–132; BP diastolic 56–78; Ht 177.8 cm; Wt 85.1 kg
--- NOTE | 2019-01-07 01:00 | NUR ---
PT TAKEN TO CT SCAN AT THIS TIME ACCOMPANIED BY MYSELF AND FINE ARTS INSTRUCTOR. PT CONNECTED TO FULL REFRIGERATED COMPANY DRIVER AND PULSE OX
--- NOTE | 2019-01-07 01:15 | NUR ---
PT RETURNED FROM CT SCAN. CT SCAN COMPLETED WITH NO COMPLICATIONS. PT CONNECTED TO FULL TRIMMING INSPECTOR AND PULSE OX. NO S/S OF ACUTE DISTRESS NOTED. WILL CONT TO MONITOR.
[2019-01-07 05:53] LABS: BASOPHIL % 0.1 % (0-2); PLATELET COUNT 232 x10^3mcL (130-400)
[2019-01-07 05:55] LABS: RED CELL DISTRIBUTION WIDTH 16.4 % (11.5-14.5)
[2019-01-07 06:02] LABS: CALCIUM 7.1 mg/dL (8.5-10.1); MAGNESIUM 2.2 mg/dL (1.8-2.4); PHOSPHOROUS 5.5 mg/dL (2.5-4.9); POTASSIUM SERUM 3.5 mmol/L (3.5-5.1)
[2019-01-07 06:05] LABS: CREATININE SERUM 4.1 mg/dL (0.7-1.3)
--- NOTE | 2019-01-07 06:26 | NUR ---
PT IS A/OX4. BREATHING IS E/U ON HIGH FLOW @ 40 LPM 95% FIO2. PT DENIES ANY SOB. LFA IV INTACT/SECURED, NO S/S OF INFITLRATION NOTED. LASIX GTT INFUSING @ 3 ML/HR. PT HAS BEEN NPO SINCE MIDNIGHT. NO S/S OF ACUTE DISTRESS NOTED. BED IN LOW POSITION. CALL LIGHT IN REACH. WILL CONT TO MONITOR
--- NOTE | 2019-01-07 07:15 | NUR ---
REPORT GIVEN TO NEGIN FOR CONTINUITY OF CARE. ALL QUESTIONS/CONCERNS ADDRESSED. ENDORSING ALL CARE
--- NOTE | 2019-01-07 08:30 | NUR ---
DR. DOS SANTOS AT BEDSIDE TO SEE AND ASSESS PT. STATED TO CONTINUE TO MONITOR PT AND ONCE PT RECIEVES A ROUND OF DIALYSIS AND REMAINS STABLE PT MAY TRANSFER TO [facility]. ALSO REQUESTING FOR PT TO HAVE SWALLOW EVAL DUE TO ASPIRATION. ORDERS READBACK AND CONFIRMED.
--- NOTE | 2019-01-07 10:19 | NUR ---
RT CHRIS AT BEDSIDE AND TITRATED THE FI02 ON THE HIGH FLOW DOWN TO 65%. NO SIGNS OF RESP DISTRESS. WILL CONTINUE TO MONITOR.
--- NOTE | 2019-01-07 10:57 | NUR ---
PT WAS SEEN FOR DYSPHAGIA. PT WAS ABLE TO SAFELY SWALLOW PUREE DIET WITH HONEY THICK LIQUID. PT HAD MILD WET VOICE FOR THIN LIQUID. RECOMMENDATION PUREE DIET WITH HONEY THICK LIQUID SMALL BITES AND SIPS ONLY 1:1 SUPERVISION.
--- NOTE | 2019-01-07 12:05 | NUR ---
RT CHRIS AT BEDSIDE AND TITRATED THE FI02 ON THE HIGH FLOW DOWN TO 60%. NO SIGNS OF RESP DISTRESS. WILL CONTINUE TO MONITOR.
--- NOTE | 2019-01-07 13:03 | NUR ---
BLADDER SCAN DONE, VOL 100ML, IS AWARE.
--- NOTE | 2019-01-07 14:13 | NUR ---
FELICIA ROSEN DC'D AT THIS TIME PER DR. ROWLAND ORDER. WILL CONTINUE TO MONITOR.
--- NOTE | 2019-01-07 14:20 | NUR ---
RT CHRIS AT BEDSIDE AND TITRATED THE FI02 ON THE HIGH FLOW DOWN TO 55%. NO SIGNS OF RESP DISTRESS. WILL CONTINUE TO MONITOR.
--- NOTE | 2019-01-07 16:07 | NUR ---
DECREASED FiO2 TO 45% ON HIGHFLOW NASAL CANNULA.
--- NOTE | 2019-01-07 16:08 | NUR ---
PATIENT OFF FLOOR TO OR FOR PLACEMENT OF TUNNELED CATHETER PLACEMENT.
--- NOTE | 2019-01-07 16:16 | NUR ---
PHYSICAL THERAPY NOTE PATIENT UNABLE TO BE SEEN TODAY SECONDARY TO MEDICAL PROCEDURE. WILL CLEAR TREATMENT WITH NURSING AND ATTEMPT NEXT VISIT. NURSING AWARE.
--- NOTE | 2019-01-07 18:28 | NUR ---
PCXR DONE FOR PLACEMENT. OK TO USE PER DR.ANTHONY BALDWIN
--- NOTE | 2019-01-07 18:40 | NUR ---
TB TEST DONE TO LEFT ANTERIOR FOREARM (SEE EMAR). WILL CONTINUE TO MONITOR.
[2019-01-08] VITALS (14 sets, daily range): BP systolic 130–188; BP diastolic 69–94
[2019-01-08 05:08] LABS: RAPID PLASMA REAGIN Non Reactive (Non Reactive)
[2019-01-08 05:19] LABS: CALCIUM 7.4 mg/dL (8.5-10.1); CARBON DIOXIDE 28.5 mmol/L (21-32); CREATININE SERUM 3.8 mg/dL (0.7-1.3); PHOSPHOROUS 5.4 mg/dL (2.5-4.9); POTASSIUM SERUM 3.6 mmol/L (3.5-5.1)
[2019-01-08 05:20] LABS: BASOPHIL % 0.6 % (0-2); PLATELET COUNT 220 x10^3mcL (130-400)
[2019-01-08 05:33] LABS: RED CELL DISTRIBUTION WIDTH 16.1 % (11.5-14.5)
--- NOTE | 2019-01-08 06:36 | NUR ---
Pt. had 1 liter off with HD last pm. Required Albumin 25% x1 and Mannitol X3 to maintain SBP >90. Pt tolerated well and has rested throughout the shift. Blood pressures post HD 120's -140's. No UOP. Titrating hiflo as pt can tolerate. Complained of pain of 5 out 10 last pm in area of HD catheter placement, but has not complained after pain medication given at 0130. Resting comfortably, awaiting breakfast.
--- NOTE | 2019-01-08 08:39 | NUR ---
HD NURSE AT BEDSIDE PREPARING FOR DIALYSIS. ORDERS AND LABS GIVEN.
--- NOTE | 2019-01-08 09:08 | NUR ---
HD AT BEDSIDE AT STARTED, PT YUNIER WELL
--- NOTE | 2019-01-08 10:03 | NUR ---
DR. BERNSTEIN AND RESIDENTS ROUNDING AT THIS TIME. NO NEW ORDERS AT THIS TIME. PT CAN BE CLEARED TO GO UPSTAIRS TO TELE IF ECHO SHOWS NO SIGNS OF CARDIAC TAMPONADE.
[2019-01-08 10:48] LABS: IRON 13 ug/dL (65-170); TOTAL IRON BINDING CAPACITY 109 ug/dL (250-450)
--- NOTE | 2019-01-08 13:29 | NUR ---
2.5 LITERS TAKEN OFF BY HD
--- NOTE | 2019-01-08 13:45 | NUR ---
DR. DOS SANTOS AT BEDSIDE ASSESSING PT. NURSING UPDATES PROVIDED. STATES FOR PT TO BE WEANED OFF HIFLOW. PT CLEARED TO BE TRANSFERRED TO TELE.
--- NOTE | 2019-01-08 16:23 | NUR ---
PT TRANSFERRED TO 236A, REPORT WAS GIVEN TO NURSE COOL. PT TRANSFERRED ON NONREBREATHER SPO2 99%.
--- NOTE | 2019-01-08 16:26 | NUR ---
RECIEVED PATIENT FROM ICU NURSE AT 1615. PATIENT IMMEADITELY CONNECTED TO TELEMETRY MONITORING. PERFORMED HEAD TO TOE ASSESSMENT ON PATIENT. PATIENT CURRENTLY RECIEVING HIGH FLOW OXYGEN NC OXYGEN THERAPY ON 20 L. FIO2 AT 30%.
--- NOTE | 2019-01-08 17:36 | NUR ---
PATIENT RESTING COMFORTABLY IN BED. CURRENTLY OBSERVING THE TV. NO SIGNS OF RESPIRATORY DISTRESS. WILL ENDORSE CARE TO NIGHT NURSE.
--- NOTE | 2019-01-08 19:17 | NUR ---
TELEMETRY REPORTS RUN OF VTACH ON TELEMETRY MONITORING. I ASSESSED THE PATIENT AND PATIENT IS CALM AND IS ASKING FOR A BLANKET. PATIENT ALERT AND ORIENTED AND DOES NOT REPORT ANY PAIN OR DISCOMFORT. THE SENIOR ELECTRICAL DESIGNER RETRIEVED TWO BLOOD PRESSURE MEASUREMENTS THAT SHOWED HIGH BLOOD PRESSURE. I PERSONALLY ASSESSED BLOOD PRESSURE ON RIGHT ARM THAT REVEALED B/P OF 188/90 MAP OF 122. PHYSICIAN NOTIFIED.
[2019-01-09 04:54] VITALS: BP 156/77
--- NOTE | 2019-01-09 05:05 | NUR ---
PATIENT AXO X4, RESTING IN BED IN SEMI-FOWLERS POSITION. RIGHT CHEST PORTACATH; PATENT AND INTACT. BP HIGH LAST NIGHT ON INITIAL ROUNDS; HYDRALAZINE GIVEN WITH GOOD RESULTS. SINUS DAVID/ SINUS RHYTHM ON MONITOR. ANURIC. DENIES C/O OF PAIN OR DISCOMFORT. CALL LIGHT WITHIN REACH. fALL PRECAUTIONS IN PROGRESS. WILL CONTINUE TO MONITOR.
[2019-01-09 06:23] LABS: BASOPHIL % 0.3 % (0-2); PLATELET COUNT 253 x10^3mcL (130-400)
[2019-01-09 06:25] LABS: CALCIUM 7.5 mg/dL (8.5-10.1); CARBON DIOXIDE 29.9 mmol/L (21-32); CREATININE SERUM 3.2 mg/dL (0.7-1.3); MAGNESIUM 1.6 mg/dL (1.8-2.4); POTASSIUM SERUM 3.6 mmol/L (3.5-5.1)
[2019-01-09 06:30] LABS: RED CELL DISTRIBUTION WIDTH 16.1 % (11.5-14.5)
--- NOTE | 2019-01-09 07:37 | NUR ---
RECIEVED REPORT FROM [facility] NURSE AND PERFORMED MORNING ASSESSMENT ON PATIENT. PATIENT OBSERVED RESTING COMFORTABLY IN BED. PATIENT ASSISTED TO SIT UPRIGHT IN BED IN ORDER TO EAT BREAKFAST. HIGH FLOW OXYGEN CURRENTLY AT 10 L. PATIENT AWAKE ALERT AND ORIENTED. NO CURRENT REPORT OF PAIN FROM PATIENT. SCD'S IN PLACE. [facility] TUNNEL CATHETER DRY AND INTACT.
--- NOTE | 2019-01-09 07:45 | NUR ---
RT-PT IN NO NEED OF MED NEB AT THIS TIME. NO SOB OR DISTRESS NOTED. PT KNOWS TO CALL IF IN RESP. DISTRESS.
[2019-01-09 08:47] VITALS: BP 133/68
[2019-01-09 12:30] VITALS: BP 164/81
--- NOTE | 2019-01-09 15:25 | NUR ---
TELEMTRY CALLED NOTIFYING NURSE THAT PATIENT HAS RUN OF VTACH. PATIENT STABLE, ALERT, ORIENTED, NO PAIN, NO DIFFICULTY BREATHING. VITAL SIGNS TAKEN O2 SATURATION 98%, HEART RATE 61. TEMPERATURE 98.0 , 149/77 (137).
[2019-01-09 15:28] VITALS: BP 149/77
--- NOTE | 2019-01-09 16:07 | NUR ---
PT WAS SEEN FOR DYSPHAGIA. PT WAS ABLE TO SAFELY SWALLOW MS DIET WITH CHOPPED MEAT AND VEG. PT HAS MILD DIFFICULTY WITH MASTICATION SKILLS FOR REGULAR DIET. RECOMMENDATION MS DIET WITH CHOPPED MEAT AND VEG WITH THIN LIQUID SMALL BITES AND SIPS ONLY SUPERVISION DURING MEAL TIME.
[2019-01-09 16:46] VITALS: BP 155/77
--- NOTE | 2019-01-09 17:28 | NUR ---
ASSESSED PATIENT'S LEFT FOREARM IN ORDER TO READD PPD. PPD ZERO INDURATION, NEGATIVE RESULT.
[2019-01-09 20:19] VITALS: BP 179/91
[2019-01-10] VITALS (8 sets, daily range): BP systolic 163–191; BP diastolic 83–99
--- NOTE | 2019-01-10 04:15 | NUR ---
PATIENT AXO X4. RIGHT CHEST TUNNEL CATH PATENT AND INTACT. RIGHT HAND SALINE LOCK PATENT AND INTACT. ANURIC. PENDING TO BE DIALIZED TODAY. FALL PRECAUTIONS IN PROGRESS. CALL LIGHT WITHIN REACH. DENIES C/O OF PAIN OR DISCOMFORT AT PRESENT.
--- NOTE | 2019-01-10 06:12 | NUR ---
PATIENT RESTLESS AND CONFUSED. PULLED OUT IV AND REFUSED LABS TO BE DRAWN. WILL NEED TO ATTEMPT REDRAW WHEN PATIENT IS COMPLIANT.
--- NOTE | 2019-01-10 07:51 | NUR ---
PT LYING IN BED EYES CLOSED, AROUSABLE TO VOICE. BREATHING EQUAL/UNLABORED ON 5 L/ NC. R. CHEST TUNNEL CATH IN PLACE WITH NO REDNESS/ SWELLING. NO REDNESS/ SWELLING TO IV SITE. BED IN LOW POSITION, CALL LIGHT IN REACH, SAFETY PRECAUTIONS IN PLACE. WILL CONTINUE TO MONITOR
--- NOTE | 2019-01-10 09:37 | NUR ---
PT RECEIVING DIALYSIS, PT YUNIER WELL. DIALYSIS NURSE AT BED SIDE. WILL CONTINUE TO MONITOR
--- NOTE | 2019-01-10 13:31 | NUR ---
BP WAS 178/85 AFTER DIALYSIS, ADALAT GIVEN. BP IS NOW 174/90. CALLED SUPERVISOR FRONT FRANNY DEL TORO. SUPERVISOR FRONT SAID TO MONITOR PT FOR NOW. NO NEW ORDERS/ MEDS GIVEN. PT RESTING IN BED COMFORTABLY WITH NO C/O OR SIGNS OF ACUTE DISTRESS. BREATHING EQUAL/ UNLABORED ON 5 L/NC. NO REDNESS/ SWELLING TO IV SITE. R. CHEST CATH IS CDI, WITH NO REDNESS/ SWELLING. BED IN LOW POSITION, CALL LIGHT IN [facility], SAFETY PRECAUTIONS IN PLACE. WILL CONTINUE TO MONITOR
--- NOTE | 2019-01-10 15:48 | NUR ---
PHYSICAL THERAPY NOTE ATTEMPTED FOR PHYSICAL THERAPY FOLLOW UP SESSIONS AT 10:45 AM, PATIENT ON DIALYSIS.
--- NOTE | 2019-01-10 18:29 | NUR ---
PT SITTING UP IN BED A/A. BREATHING EQUAL/ UNLABORED ON 4 L VIA NC. NO ACUTE DISTRESS/ PAIN. NO REDNESS SWELLING TO IV SITE OR R. SIDED IJ SITE. PT WIPED DOWN WITH CHG WIPES. BED IN LOW POSITION, CALL LIGHT IN REACH, SAFETY PRECAUTIONS IN PLACE. WILL ENDORSE TO ON COMING NURSE
--- NOTE | 2019-01-10 19:20 | NUR ---
RECEIVED PT FROM PREVIOUS SHIFT NURSE. PT AOX4, DENIES CRAWFORD/DIZZINESS. MED SURG PT, DENIES CP/PRESSURE. R. IJ TUNNELED CATH IN PLACE. DENIES SOB/DIFFICULTY BREATHING, ON 4L NC. IV TO RFA, INTACT AND PATENT. BED IN LOWEST POSITION. CALL LIGHT WITHIN REACH. WILL CONTINUE TO MONITOR.
--- NOTE | 2019-01-10 23:30 | NUR ---
DR. ALVAREZ NOTIFIED OF PT HIGH BP, PER TRENDS THAT IT PT BASELINE. NO FURTHER ORDERS AT THIS TIME.
[2019-01-11] VITALS (8 sets, daily range): BP systolic 161–197; BP diastolic 87–97
--- NOTE | 2019-01-11 02:30 | NUR ---
PT RESTING IN BED. RR EVEN AND UNLABORED. IN NO ACUTE DISTRESS. CALL LIGHT WITHIN REACH. BED IN LOWEST POSITION. WILL CONTINUE TO MONITOR.
[2019-01-11 06:02] LABS: CALCIUM 7.5 mg/dL (8.5-10.1); CREATININE SERUM 2.9 mg/dL (0.7-1.3)
[2019-01-11 06:44] LABS: BASOPHIL % 0.3 % (0-2)
[2019-01-11 07:12] LABS: RED CELL DISTRIBUTION WIDTH 14.8 % (11.5-14.5)
[2019-01-11 07:13] LABS: PLATELET COUNT 258 x10^3mcL (130-400)
--- NOTE | 2019-01-11 07:30 | NUR ---
PT ENDORSE TO ME THIS MORNING, LAYING IN BED RESTING, AA/OX4, BREATHING EVEN AND UNLABORED ON 4L NC, TOLERATING WELL, NO ACUTE RESP DISTRESS OR SOB NOTED. MEDSURG, DENIES ANY CP OR PRESSURE AT THIS TIME. HD PATIENT, LAST HD 01/10 3 L OUT. RIJ TUNNEL CATH INTACT AND PATENT. GEN WEAKNESS, USES WALKER AT HOME, KNOWS TO CALL FOR ASSIST. L VILLEDA ABRASION MORTGAGE LOAN INTERVIEWER. IV TO THE RFA INTACT AND PATENT/ HEPLOCKED. SLOVENIAN SPKING. CALL LIGHT IN REACH. BED IN LOW POSITION. WILL CONTINUE TO MONITOR.
--- NOTE | 2019-01-11 10:09 | NUR ---
REC CK BP 180/90, HR 65 REMAINS ON 4L NC 98% MECHANICAL INSULATOR MUTUC MADE AWARE OF BP. PT DENIES ANY CP OR PRESSURE/ PENDING HD TODAY.
--- NOTE | 2019-01-11 11:16 | NUR ---
PER WEB ANALYTICS DEVELOPER BRANDIECOREEN GEORGE WILL ADMINISTER COLONIDINE PO 0.1MG DUE TO HIGH BP, CALLED HD RN STATED WILL BE ON THE UNIT ONCE COMPLETE HD IN ICU. PT DENIES ANY CP OR PRESSURE. IS CALM AT THIS TIME/ WATCHING TV.
--- NOTE | 2019-01-11 13:00 | NUR ---
PER RECYCLABLE MATERIALS DISTRIBUTOR MUTUC KERRI BP AT 1400 IF BP IS GREATER THAN 170 WILL GIVE HYDRALAZINE IVP. PT DENIES ANY CP OR PRESSURE, PENDING HD.
--- NOTE | 2019-01-11 14:04 | NUR ---
HD RN AT BEDSIDE.
--- NOTE | 2019-01-11 16:12 | NUR ---
PHYSICAL THERAPY DAILY NOTES CO-SIGN All documentation done by the Career Development Specialist for 01/11/19 has been reviewed. I agree with the documentation. Reviewed/Co-Signed by: Gail Grey PT Documentation Done by:JENNY PÉREZ TOW MOTOR MECHANIC POC REVIEWED W/ TOW MOTOR MECHANIC; WILL BENEFIT W/ P.T.
--- NOTE | 2019-01-11 16:53 | NUR ---
HD COMPLETE = 1 L OUT VS: 178/93. HR 59, 98 % 2L NC. WILL CONTINUE TO MONITOR.
--- NOTE | 2019-01-11 17:14 | NUR ---
RECHECKED BP 161/93, HR 59, 98 % ON 2L NC, DENIES ANY CP OR PRESSURE. WILL CONTINUE TO MONITOR.
--- NOTE | 2019-01-11 17:59 | NUR ---
PT TOLERATED 100% OF DINNER. DENIES ANY CP OR PRESSURE. PER PT VOIDED X3 AND NO BM TODAY= ONLY PASSING GAS. WILL CONTINUE TO MONITOR.
--- NOTE | 2019-01-11 18:26 | NUR ---
NO ACUTE CHANGES AT THIS TIME, NO ACUTE RESP DISTRESS OR SOB NOTED. REMAINS ON RA STATING AT 96% RT WILL RETURN IN ONE HR TO RECHECK SAT %. PT DENIES ANY CP OR PRESSURE. IV TO THE RFA INTACT AND PATENT/ HEPLOCKED. RIJ TUNNEL CATH INTACT AND PATENT.FAMILY AT BEDSIDE. WILL ENDORSE TO INCOMING RN.
--- NOTE | 2019-01-11 19:05 | NUR ---
RECEIVED PT FROM PREVIOUS SHIFT NURSE. PT AOX4, DENIES CRAWFORD/DIZZINESS. MED SURG PT, DENIES CP/PRESSURE. DENIES SOB/DIFFICULTY BREATHING, ON RA. R. IJ TUNNEL CATH IN PLACE. IV TO RFA, INTACT AND PATENT. BED IN LOWEST POSITION. CALL LIGHT WITHIN REACH. WILL CONTINUE TO MONITOR.
--- NOTE | 2019-01-11 23:13 | NUR ---
CARE ENDORSED TO WILLIAMS FOSTER.
--- NOTE | 2019-01-12 00:02 | NUR ---
RECEIEVED PT AAOX4 DENIES CRAWFORD/DIZZINESS. PT DENIES ANY PAIN/DISCOMFORT. IV RFA PATENT. BREATHING EVEN AND UNLABORED ON RA 02SAT 93% DENIES SOB. PT BP CONTINUE TO BE ELEVATED 202/[address] JIN MADE AWARE PT IS MED SURG AND HYDRALAIZINE PRN AVAILABLE TO GIVE. NEW ORDER TO PLACE PT ON TELE #18 NSR HR 67. HYDRALAZINE GIVEN PER EMAR. WILL RECHECK BP AND CONTINUE TO MONITOR. SAFETY PRECAUTIONS IN PLACE. CALL BUTTON WITHIN REACH.
[2019-01-12 00:20] VITALS: BP 190/89
[2019-01-12 00:44] VITALS: BP 195/96
--- NOTE | 2019-01-12 02:12 | NUR ---
PT RESTING. NO SIGNS OF DISTRESS NOTED. CALL BUTTON WITHIN REACH. SAFETY PRECAUTIONS IN PLACE. WILL CONTINUE TO MONITOR.
[2019-01-12 04:47] VITALS: BP 106/48
--- NOTE | 2019-01-12 05:17 | NUR ---
PT SLEPT POORLY THROUGHOUT THE NIGHT. ON RA WITH NO SOB NOTED. PT IV PATENT, SL. PT DENIES ANY PAIN/DISTRESS. MEDICATED PER EMAR. CALL BUTTON WTHIN REACH. SAFETY PRECAUTIONS IN PLACE. WILL CONTINUE TO MONITOR AND ENDORSE CARE TO DAY SHIFT RN.
--- NOTE | 2019-01-12 06:15 | NUR ---
PT BP CONTINUE TO BE ELEVATED. THIS AM BP 195/96. PT ASYMPTOMATIC. MEDICATED WITH PRN MEDICATION PER EMAR. WILL CONTINUE TO MONITOR.
[2019-01-12 06:50] VITALS: BP 191/92
--- NOTE | 2019-01-12 07:22 | NUR ---
PT RESTING. NO SIGNS OF DISTRESS NOTED. CALL BUTTON WITHIN REACH. SAFETY PRECAUTIONS IN PLACE. ENDORSED CARE TO DAY SHIFT RN, ALL QUESTIONS ADDRESSED.
--- NOTE | 2019-01-12 07:30 | NUR ---
PT ENDORSED TO ME THIS MONRNING, LAYING IN BED RESTING. AA/O X4, BREATING EVEN AND UNLABORED ON RA SATING 96% NO ACUTE RESP DISTRESS OR SOB NOTED. IS NOW ON TELE 18 NSR NOTED, HR 71 NOTED, DENIES ANY CP OR PRESSURE. EDGE CUTTING MACHINE OPERATOR AT BEDSIDE TAKING VS: CURRENT BP 189/92, HR 71, 96 RA, DENIES ANY CP OR PRESSURE. HD PT, LAST HD WS 01/11 1 L OUT. RIJ TUNNEL CATH NOTED/ PATENT. GEN WEAKNESS, IV TO THE RFA INTACT AND PATENT, NO REDNESS OR SWELLING NOTED. CALL LIGHT IN REACH. BED IN LOW POSITION. WILL CONTINUE TO MONITOR.
[2019-01-12 08:00] VITALS: BP 189/92
--- NOTE | 2019-01-12 09:44 | NUR ---
Intervention/RDN Recommendation(s): 1. Continue on CCHO diet as tolerated.
--- NOTE | 2019-01-12 09:44 | NUR ---
Initial Nutrition Assessment- Dx: SOB, weakness PMHx: HTN, HLD, DM type 2, CKD, CHF PSHx: stomach fat pad excisional biopsy Labs: Meds: catapres, Colace, cozaar, D50%/water, Humulin R, hydralazine, Lipitor, norco, Procrit, Tylenol, Zofran, zosyn Diet: CCHO, renal PO Intakes: (01/09) B: 100%, D: 90%, (01/10) L: 100%, (01/11) B: 100%, L: 100%, D: 100%; overall agerage: 98% x 6 meals. This provides ~1676 kcal and 101 gm protein, which meets 78% estimated kcal and > 100% estimated protein needs; adequate. Ht: 177.8 cm / 70 inches / 5"10" Wt: 85.077 kg / 187 pounds BMI: 26.9 kg/m2, normal for age IBW: 166 pounds / 75 kg %IBW: 112% UBW: Unknown Age: 54 Food Allergies: No Known Food Allergies Skin: skin abrasion [place] 18 Edema: trace edema noted to BLE GI: Last BM 01/10/19 Pt admitted with dx: acute hypoxic respiratory failure, acute on chronic heart failure, moderate to severe mitral regurgitation, normocytic anemia, acute kidney injury on chronic kidney disease, hypertension, dyslipidemia, severe malnutrition, diabetes mellitus, amyloidosis, DVT prophylaxis. Pt declined interview with RDN at this time. Pt appears adequately nourished and has good PO intakes. Estimated Nutritional Needs Based on actual body weight of 85 kg. Energy: 5047-6808 kcal/d (25-30 kcal/kg for adult maintenance) Protein: 68-85 gm/d (0.8-1 gm/kg for adult maintenance) Fluid: 2044-6343 mL/d (1 mL/kcal) or per MD. Nutrition Diagnosis 1. No nutrition-related dx at this time. Intervention/RDN Recommendation(s): 1. Continue on CCHO diet as tolerated. Monitor/Evaluate Goal: Intake via PO intakes to meet at least 75% of estimated needs with acceptable tolerance within 7 days. Monitor: PO intakes and/or nutrition support tolerance, Labs, GI function, Skin integrity, Weights. F/U in 7 days as low risk (01/19)
--- NOTE | 2019-01-12 11:23 | NUR ---
PT BP 208/98 HR 71 PER BLADE CHANGER MUTUC ORDER WILL GIVE HYDRALAZINE IVP 10MG, TELE STRIP DONE BEFORE AND AFTER. PT DENIES ANY CP OR PRESSURE. WILL CONTINUE TO MONITOR.
[2019-01-12 12:15] VITALS: BP 170/85
--- NOTE | 2019-01-12 15:47 | NUR ---
EXPLAINED DISCHARGE INSTRUCTIONS, CONTINUED MEDS AND FOLLOW UP APPOINTMENTS FOR PRIMARY DOC AND HD APPT, PT AND HIS SISTER BOTH AGREED AND SIGNED ALL DOCUMENTS. CURRENT BP 170/85, HR 68, 98 % RA= PT DENIES ANY CP OR PRESSURE. 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 REMOVED IV TO THE THE RFA, CATHETER TIP INTACT/ TOLERATED WELL. RETRUNED TELE 18 TO Movli SEAN. FAMILY AT BEDSIDE. PT WILL CALL NURSING STATION ONCE HES READY.
--- NOTE | 2019-01-12 16:13 | NUR ---
REDDY MASTERSON WHEELED PT DOWN TO FRONT OF HOSPITAL, PT COLLETTE ANY CP OR PRESSURE AT THIS TIME. PT IS ONCE AGAIN CLEAR ON ALL HD APPT FOR SUNDAY AT [facility] IN [place]. PT IS GOING HOME WIHT [facility] TUNNEL CATH/ PATIENT. PT DENIES ANY SOB/ NO ACUTE RESP DISTRESS OR SOB NOTED/ ON RA SATING AT 96-97%. PT DISCHARGED HOME WITH FAMILY.
== END 2019-01-12 16:05 | disposition home or self-care (01) | DRG 346 ==
LOC: ED 23:49 → IC 01-05 02:51 → DU 01-08 15:55 → MU 01-10 17:10
PROVIDERS: Emergency Medicine; Internal Medicine; Surgery; ADMIT General Practice
PROC: 30233N1 Transfusion of Nonautologous Red Blood Cells into Peripheral Vein, Percutaneous Approach (ICD-10-PCS; 2019-01-06)
PROC: B543ZZA Ultrasonography of Right Jugular Veins, Guidance (ICD-10-PCS; 2019-01-07)
PROC: 5A1D70Z Performance of Urinary Filtration, Intermittent, Less than 6 Hours Per Day (ICD-10-PCS; 2019-01-07)
PROC: 05HM33Z Insertion of Infusion Device into Right Internal Jugular Vein, Percutaneous Approach (ICD-10-PCS; principal; 2019-01-07 16:45)
PROC: 5A1D70Z Performance of Urinary Filtration, Intermittent, Less than 6 Hours Per Day (ICD-10-PCS; 2019-01-08)
PROC: 5A1D70Z Performance of Urinary Filtration, Intermittent, Less than 6 Hours Per Day (ICD-10-PCS; 2019-01-10)
PROC: 5A1D70Z Performance of Urinary Filtration, Intermittent, Less than 6 Hours Per Day (ICD-10-PCS; 2019-01-11)
DX: E85.9 Amyloidosis, unspecified (principal); J96.01 Acute respiratory failure with hypoxia; E43 Unspecified severe protein-calorie malnutrition; I16.0 Hypertensive urgency; I13.0 Hypertensive heart and chronic kidney disease with heart failure and stage 1 through stage 4 chronic kidney disease, or unspecified chronic kidney disease; N17.9 Acute kidney failure, unspecified; I50.9 Heart failure, unspecified; E11.22 Type 2 diabetes mellitus with diabetic chronic kidney disease; E11.21 Type 2 diabetes mellitus with diabetic nephropathy; E11.65 Type 2 diabetes mellitus with hyperglycemia; E78.5 Hyperlipidemia, unspecified; I34.0 Nonrheumatic mitral (valve) insufficiency; N18.9 Chronic kidney disease, unspecified; Z79.84 Long term (current) use of oral hypoglycemic drugs
CPT/HCPCS: 36600; 76001; 82962; 83880; 86580; 92526-GN; 92610-GN; 97110-GP; 97116-GP; 97530-GP; A4301; A4719; G0378; J0360; J0885-EC; J1644; J1815; J1940; J2150; J2543; J3010; J3475; J3490; J7030; J7040; J7050; J7120; J7613; J7620; P9016; P9047; Q0092

== ENCOUNTER 2019-01-23 08:46 | Inpatient (IN) | payer MEDICAID ==
[~2019-01-23] VITALS: Ht 175.3 cm; Wt 76.3 kg
[2019-01-23 09:53] LABS: BASOPHIL % 0.6 % (0-2); PLATELET COUNT 311 x10^3mcL (130-400)
[2019-01-23 09:55] LABS: RED CELL DISTRIBUTION WIDTH 16.4 % (11.5-14.5)
[2019-01-23 10:12] LABS: CALCIUM 8.2 mg/dL (8.5-10.1); CARBON DIOXIDE 32.7 mmol/L (21-32); CREATININE SERUM 3.5 mg/dL (0.7-1.3); POTASSIUM SERUM 4.1 mmol/L (3.5-5.1)
[2019-01-23 10:16] LABS: BILIRUBIN TOTAL 0.3 mg/dL (0.20-1.00)
[2019-01-23 10:18] LABS: ALBUMIN 2.4 g/dL (3.4-5.0)
[2019-01-23 14:13] VITALS: BP 170/32
[2019-01-23 16:57] VITALS: BP 170/32
[2019-01-23 17:50] VITALS: BP 176/78
[2019-01-23 20:33] VITALS: BP 188/98
[2019-01-23 23:55] VITALS: BP 180/98
[2019-01-24 05:38] VITALS: BP 134/69
[2019-01-24 06:40] LABS: BASOPHIL % 0.5 % (0-2); PLATELET COUNT 255 x10^3mcL (130-400)
[2019-01-24 07:05] LABS: CALCIUM 7.6 mg/dL (8.5-10.1); CARBON DIOXIDE 31.8 mmol/L (21-32); CREATININE SERUM 2.8 mg/dL (0.7-1.3); POTASSIUM SERUM 3.8 mmol/L (3.5-5.1)
[2019-01-24 08:09] LABS: RED CELL DISTRIBUTION WIDTH 16.6 % (11.5-14.5)
[2019-01-24 08:39] VITALS: BP 138/70
[2019-01-24 12:30] VITALS: BP 159/80
[2019-01-24 17:02] VITALS: BP 128/70
[2019-01-24 20:50] VITALS: BP 141/71
[2019-01-24 22:13] VITALS: Ht 175.3 cm; Wt 76.3 kg
[2019-01-25 05:21] VITALS: BP 138/77
[2019-01-25 06:20] LABS: BASOPHIL % 0.4 % (0-2); PLATELET COUNT 248 x10^3mcL (130-400)
[2019-01-25 06:34] LABS: RED CELL DISTRIBUTION WIDTH 17.3 % (11.5-14.5)
[2019-01-25 08:20] LABS: CALCIUM 7.9 mg/dL (8.5-10.1); CARBON DIOXIDE 34.8 mmol/L (21-32); CREATININE SERUM 3.3 mg/dL (0.7-1.3); POTASSIUM SERUM 4.2 mmol/L (3.5-5.1)
[2019-01-25 08:35] VITALS: BP 153/77
[2019-01-25 12:45] VITALS: BP 118/63
[2019-01-25 17:00] VITALS: BP 125/67
[2019-01-25 20:40] VITALS: BP 133/69
[2019-01-26 05:52] VITALS: BP 156/68
[2019-01-26 06:52] LABS: CALCIUM 7.6 mg/dL (8.5-10.1); CARBON DIOXIDE 31.4 mmol/L (21-32); CREATININE SERUM 2.5 mg/dL (0.7-1.3); POTASSIUM SERUM 4.1 mmol/L (3.5-5.1)
[2019-01-26 07:00] LABS: BASOPHIL % 0.5 % (0-2); PLATELET COUNT 255 x10^3mcL (130-400)
[2019-01-26 07:43] LABS: RED CELL DISTRIBUTION WIDTH 16.6 % (11.5-14.5)
[2019-01-26 08:21] VITALS: BP 157/82
[2019-01-26 11:38] VITALS: BP 141/72
[2019-01-26 16:43] VITALS: BP 162/80
[2019-01-26 20:10] VITALS: BP 110/59
[2019-01-27 05:31] VITALS: BP 130/73
[2019-01-27 06:19] LABS: CALCIUM 7.4 mg/dL (8.5-10.1); CARBON DIOXIDE 31.3 mmol/L (21-32); CREATININE SERUM 3.4 mg/dL (0.7-1.3); POTASSIUM SERUM 4.3 mmol/L (3.5-5.1)
[2019-01-27 07:04] LABS: BASOPHIL % 0.6 % (0-2); PLATELET COUNT 259 x10^3mcL (130-400)
[2019-01-27 07:18] LABS: RED CELL DISTRIBUTION WIDTH 16.8 % (11.5-14.5)
[2019-01-27 09:00] VITALS: BP 135/78
[2019-01-27] MEDS ORDERED: FERROUS SULFAT325 M2 PO (10:39)
[2019-01-27 11:49] VITALS: BP 143/81
[2019-01-27 13:59] VITALS: BP 143/81
[2019-01-27 16:42] VITALS: BP 138/72
[2019-01-27 20:00] VITALS: BP 128/73
[2019-01-28 05:50] VITALS: BP 138/71
[2019-01-28 09:10] LABS: BASOPHIL % 0.5 % (0-2); PLATELET COUNT 261 x10^3mcL (130-400)
[2019-01-28 09:20] LABS: CALCIUM 7.5 mg/dL (8.5-10.1); CARBON DIOXIDE 30.1 mmol/L (21-32); CREATININE SERUM 3.8 mg/dL (0.7-1.3); POTASSIUM SERUM 4.7 mmol/L (3.5-5.1)
[2019-01-28 09:26] LABS: RED CELL DISTRIBUTION WIDTH 16.6 % (11.5-14.5)
[2019-01-28 09:35] VITALS: BP 130/69
[2019-01-28 12:55] VITALS: BP 132/71
[2019-01-28 13:25] VITALS: BP 132/71
[2019-01-28 17:20] VITALS: BP 134/70
[2019-01-28 20:50] VITALS: BP 142/80
[2019-01-29 05:36] VITALS: BP 134/71
[2019-01-29 06:29] LABS: BASOPHIL % 0.6 % (0-2)
[2019-01-29 06:40] LABS: CALCIUM 7.4 mg/dL (8.5-10.1); CARBON DIOXIDE 31.4 mmol/L (21-32); CREATININE SERUM 2.6 mg/dL (0.7-1.3); POTASSIUM SERUM 4.6 mmol/L (3.5-5.1)
[2019-01-29 06:48] LABS: PLATELET COUNT 258 x10^3mcL (130-400); RED CELL DISTRIBUTION WIDTH 16.8 % (11.5-14.5)
[2019-01-29 09:56] VITALS: BP 132/72
[2019-01-29 12:50] VITALS: BP 149/74
[2019-01-29 17:40] VITALS: BP 133/67
[2019-01-29 20:42] VITALS: BP 123/68
[2019-01-30 05:14] VITALS: BP 98/51
[2019-01-30 06:31] LABS: CALCIUM 7.4 mg/dL (8.5-10.1); CARBON DIOXIDE 30.8 mmol/L (21-32); CREATININE SERUM 3.3 mg/dL (0.7-1.3); POTASSIUM SERUM 4.7 mmol/L (3.5-5.1)
[2019-01-30 06:51] LABS: BASOPHIL % 0.7 % (0-2); PLATELET COUNT 265 x10^3mcL (130-400)
[2019-01-30 07:22] LABS: RED CELL DISTRIBUTION WIDTH 16.4 % (11.5-14.5)
[2019-01-30 08:17] VITALS: BP 114/64
[2019-01-30 13:18] VITALS: BP 110/74
[2019-01-30 17:12] VITALS: BP 132/72
[2019-01-30 21:22] VITALS: BP 131/66
[2019-01-31 05:46] VITALS: BP 127/63
[2019-01-31 06:24] LABS: CALCIUM 7.5 mg/dL (8.5-10.1); CARBON DIOXIDE 32.9 mmol/L (21-32); CREATININE SERUM 2.6 mg/dL (0.7-1.3); POTASSIUM SERUM 4.5 mmol/L (3.5-5.1)
[2019-01-31 06:31] LABS: BASOPHIL % 0.6 % (0-2); PLATELET COUNT 264 x10^3mcL (130-400)
[2019-01-31 06:46] LABS: RED CELL DISTRIBUTION WIDTH 16.8 % (11.5-14.5)
[2019-01-31 08:25] VITALS: BP 138/71
[2019-01-31 11:50] VITALS: BP 135/80
[2019-01-31 17:00] VITALS: BP 120/62
[2019-01-31 20:50] VITALS: BP 106/56
[2019-02-01 05:20] VITALS: BP 138/67
[2019-02-01 10:00] VITALS: BP 111/62
[2019-02-01 11:50] VITALS: BP 119/64
[2019-02-01 16:46] VITALS: BP 106/55
[2019-02-01 20:49] VITALS: BP 135/69
[2019-02-02 06:15] VITALS: BP 149/74
[2019-02-02 07:00] LABS: CALCIUM 7.9 mg/dL (8.5-10.1); CARBON DIOXIDE 30.1 mmol/L (21-32); CREATININE SERUM 3.1 mg/dL (0.7-1.3); POTASSIUM SERUM 4.7 mmol/L (3.5-5.1)
[2019-02-02 07:04] LABS: BASOPHIL % 0.6 % (0-2); PLATELET COUNT 246 x10^3mcL (130-400)
[2019-02-02 07:24] LABS: RED CELL DISTRIBUTION WIDTH 16.9 % (11.5-14.5)
[2019-02-02 09:47] VITALS: BP 140/67
[2019-02-02 16:30] VITALS: BP 137/77
[2019-02-02 20:40] VITALS: BP 154/78
[2019-02-03 05:19] VITALS: BP 140/70
[2019-02-03 07:26] LABS: BASOPHIL % 0.5 % (0-2); PLATELET COUNT 270 x10^3mcL (130-400)
[2019-02-03 07:27] LABS: RED CELL DISTRIBUTION WIDTH 16.8 % (11.5-14.5)
[2019-02-03 09:56] VITALS: BP 124/69
[2019-02-03 11:16] LABS: POTASSIUM SERUM 4.8 mmol/L (3.5-5.1)
[2019-02-03 11:17] LABS: CALCIUM 8.3 mg/dL (8.5-10.1); CREATININE SERUM 3.6 mg/dL (0.7-1.3); MAGNESIUM 1.8 mg/dL (1.8-2.4)
[2019-02-03 13:09] VITALS: BP 130/63
[2019-02-03 16:35] VITALS: BP 116/55
[2019-02-03 20:36] VITALS: BP 111/54
[2019-02-04 06:09] VITALS: BP 137/74
[2019-02-04 09:51] VITALS: BP 133/63
[2019-02-04 10:51] LABS: BASOPHIL % 0.5 % (0-2); PLATELET COUNT 267 x10^3mcL (130-400)
[2019-02-04 11:00] LABS: RED CELL DISTRIBUTION WIDTH 17.1 % (11.5-14.5)
[2019-02-04 13:05] LABS: IRON 31 ug/dL (65-170)
[2019-02-04 13:06] LABS: TOTAL IRON BINDING CAPACITY 152 ug/dL (250-450)
[2019-02-04 13:14] VITALS: BP 133/63
[2019-02-04 15:01] LABS: CALCIUM 8.1 mg/dL (8.5-10.1); CARBON DIOXIDE 27.2 mmol/L (21-32); POTASSIUM SERUM 5.5 mmol/L (3.5-5.1)
[2019-02-04 15:04] LABS: CREATININE SERUM 4.2 mg/dL (0.7-1.3)
== END 2019-02-04 18:21 | disposition home or self-care (01) | DRG 346 ==
LOC: ED 08:46 → DU 11:20 → MU 01-29 17:21
PROVIDERS: Emergency Medicine; General Practice; Internal Medicine; ADMIT Internal Medicine
PROC: 5A1D70Z Performance of Urinary Filtration, Intermittent, Less than 6 Hours Per Day (ICD-10-PCS; principal; 2019-01-23)
DX: E85.9 Amyloidosis, unspecified (principal); J96.01 Acute respiratory failure with hypoxia; I13.2 Hypertensive heart and chronic kidney disease with heart failure and with stage 5 chronic kidney disease, or end stage renal disease; N17.9 Acute kidney failure, unspecified; E43 Unspecified severe protein-calorie malnutrition; I42.5 Other restrictive cardiomyopathy; N18.6 End stage renal disease; E11.22 Type 2 diabetes mellitus with diabetic chronic kidney disease; E11.65 Type 2 diabetes mellitus with hyperglycemia; I50.9 Heart failure, unspecified; N08 Glomerular disorders in diseases classified elsewhere; I34.0 Nonrheumatic mitral (valve) insufficiency; E78.5 Hyperlipidemia, unspecified; Z99.2 Dependence on renal dialysis; Z68.23 Body mass index [BMI] 23.0-23.9, adult
CPT/HCPCS: 36600; 82962; 97110-GP; 97112-GP; 97116-GP; 97530-GP; G0378; J0885-EC; J1644; J1940; J7030; J7620; Q0092

== ENCOUNTER 2019-02-22 11:18 | Inpatient (IN) | payer MEDICAID ==
[~2019-02-22] VITALS: Ht 175.3 cm; Wt 83.0 kg
[~2019-02-22 11:18] MED LIST changes: +FERROUS SULFAT325 M2 PO
[2019-02-22 12:22] LABS: BASOPHIL % 0.5 % (0-2); PLATELET COUNT 352 x10^3mcL (130-400)
[2019-02-22 12:32] LABS: RED CELL DISTRIBUTION WIDTH 19.1 % (11.5-14.5)
[2019-02-22 12:33] LABS: CALCIUM 8.2 mg/dL (8.5-10.1); POTASSIUM SERUM 4.2 mmol/L (3.5-5.1)
[2019-02-22 12:39] LABS: BILIRUBIN TOTAL 0.3 mg/dL (0.20-1.00); TOTAL PROTEIN, SERUM 7.1 g/dL (6.4-8.2)
[2019-02-22 12:42] LABS: ALBUMIN 2.6 g/dL (3.4-5.0)
[2019-02-22 14:14] VITALS: BP 196/106
[2019-02-22 14:25] VITALS: BP 237/124
[2019-02-22 14:34] VITALS: Ht 175.3 cm; Wt 83.0 kg
[2019-02-22 14:41] LABS: CHOLESTEROL/HDL RATIO 4.4; MAGNESIUM 1.6 mg/dL (1.8-2.4); PHOSPHOROUS 3.4 mg/dL (2.5-4.9)
[2019-02-22 15:40] LABS: FREE T4 1.02 ng/dL (0.76-1.46); FREE THYROXINE INDEX 3.2 ug/dL (1.4-4.5)
[2019-02-22 16:09] LABS: T3 TOTAL 0.9 ng/mL
[2019-02-22 18:50] VITALS: BP 200/110
[2019-02-22 20:03] VITALS: BP 19199/9
[2019-02-23] VITALS (7 sets, daily range): BP systolic 159–212; BP diastolic 77–105
[2019-02-23 00:12] LABS: microscopic required? YES; urine erythrocyte 2+ (NEGATIVE)
[2019-02-23 00:24] LABS: AMPHETAMINE QUAL UR NONE DETECTED (See below)
[2019-02-23 06:26] LABS: BASOPHIL % 0.1 % (0-2); PLATELET COUNT 322 x10^3mcL (130-400)
[2019-02-23 06:58] LABS: CALCIUM 8.1 mg/dL (8.5-10.1); CARBON DIOXIDE 30.6 mmol/L (21-32); CREATININE SERUM 2.3 mg/dL (0.7-1.3); MAGNESIUM 1.8 mg/dL (1.8-2.4); PHOSPHOROUS 3.6 mg/dL (2.5-4.9)
[2019-02-23 07:05] LABS: RED CELL DISTRIBUTION WIDTH 19.2 % (11.5-14.5)
[2019-02-24 05:07] VITALS: BP 162/82
[2019-02-24 06:53] LABS: PLATELET COUNT 334 x10^3mcL (130-400)
[2019-02-24 07:05] LABS: BASOPHIL % 0 % (0-2); RED CELL DISTRIBUTION WIDTH 19.9 % (11.5-14.5)
[2019-02-24 07:26] LABS: CALCIUM 8.2 mg/dL (8.5-10.1); CARBON DIOXIDE 28.5 mmol/L (21-32); CREATININE SERUM 3.3 mg/dL (0.7-1.3); PHOSPHOROUS 4.9 mg/dL (2.5-4.9); POTASSIUM SERUM 4.6 mmol/L (3.5-5.1)
[2019-02-24 08:17] VITALS: BP 169/85
[2019-02-24] MEDS ORDERED: HYDRALAZINE HY100 MG PO (10:45)
[2019-02-24] MEDS ORDERED: PREDNISONE50 MG PO (10:46)
[2019-02-24 11:59] VITALS: BP 175/87
[2019-02-24 12:58] VITALS: BP 175/87
[2019-02-24 14:57] VITALS: BP 160/84
== END 2019-02-24 18:05 | disposition home or self-care (01) | DRG 133 ==
LOC: ED 11:18 → DU 13:18
PROVIDERS: Emergency Medicine; ADMIT Internal Medicine
PROC: 5A1D70Z Performance of Urinary Filtration, Intermittent, Less than 6 Hours Per Day (ICD-10-PCS; principal; 2019-02-22)
DX: J96.21 Acute and chronic respiratory failure with hypoxia (principal); I13.2 Hypertensive heart and chronic kidney disease with heart failure and with stage 5 chronic kidney disease, or end stage renal disease; E85.3 Secondary systemic amyloidosis; J44.1 Chronic obstructive pulmonary disease with (acute) exacerbation; N18.6 End stage renal disease; I50.43 Acute on chronic combined systolic (congestive) and diastolic (congestive) heart failure; I16.1 Hypertensive emergency; D63.8 Anemia in other chronic diseases classified elsewhere; Z99.2 Dependence on renal dialysis; Z91.15 Patient's noncompliance with renal dialysis; Z91.14 Patient's other noncompliance with medication regimen; Z68.27 Body mass index [BMI] 27.0-27.9, adult
CPT/HCPCS: 36600; 82962; 83880; 84439; 85378; G0378; J0360; J1644; J1940; J2920; J7030; J7620

== ENCOUNTER 2019-03-20 11:21 | Emergency (ER) | payer MEDICAID ==
[~2019-03-20] VITALS: Ht 162.6 cm; Wt 85.7 kg
[~2019-03-20 11:21] MED LIST changes: +HYDRALAZINE HY100 MG PO; +PREDNISONE50 MG PO
[2019-03-20 11:53] VITALS: Ht 162.6 cm; Wt 85.7 kg
[2019-03-20 12:39] LABS: PLATELET COUNT 315 x10^3mcL (130-400)
[2019-03-20 12:41] LABS: RED CELL DISTRIBUTION WIDTH 19.6 % (11.5-14.5)
[2019-03-20 12:42] LABS: BASOPHIL % 0 % (0-2)
[2019-03-20 13:14] LABS: BILIRUBIN TOTAL 0.3 mg/dL (0.20-1.00); CALCIUM 8.4 mg/dL (8.5-10.1); CARBON DIOXIDE 35.7 mmol/L (21-32); MAGNESIUM 2.1 mg/dL (1.8-2.4); POTASSIUM SERUM 4.9 mmol/L (3.5-5.1); T4(THYROXINE) 7.6 ug/dL (4.7-13.3); TOTAL PROTEIN, SERUM 6.7 g/dL (6.4-8.2)
[2019-03-20 13:15] LABS: ALBUMIN 2.8 g/dL (3.4-5.0); CREATININE SERUM 4.6 mg/dL (0.7-1.3)
[2019-03-20 14:39] LABS: microscopic required? YES; urine erythrocyte TRACE (NEGATIVE)
[2019-03-20 14:49] LABS: AMPHETAMINE QUAL UR NONE DETECTED (See below)
[2019-03-20 14:51] VITALS: BP 138/74
== END 2019-03-20 14:51 | disposition short-term general hospital (02) ==
LOC: ED 11:21
PROVIDERS: Emergency Medicine
DX: I61.9 Nontraumatic intracerebral hemorrhage, unspecified (principal); D64.9 Anemia, unspecified; E46 Unspecified protein-calorie malnutrition; E11.22 Type 2 diabetes mellitus with diabetic chronic kidney disease; I12.0 Hypertensive chronic kidney disease with stage 5 chronic kidney disease or end stage renal disease; N18.6 End stage renal disease; E78.00 Pure hypercholesterolemia, unspecified; Z98.890 Other specified postprocedural states
CPT/HCPCS: 36415; 82962; 83880; G0480; Q0092